=== PATIENT | female | born 1935 | race Caucasian/White ===

== ENCOUNTER → 2016-12-05 | Outpatient (REF) | payer MEDICARE, MEDICAID ==
[~2016-12-05] MED LIST: AMLO10TA2 PO; ASPI1TAB PO; ATEN100T PO; BENA20TA2 PO; DEXA4TA PO; DONETAB6 PO; FAMO1TAB11 PO; HYDR25TAB PO; LIOT25TA2 PO; LOVE0.4I2 SC; MEMA1TAB2 PO; METO-346 PO; METO12TA PO; MIDO10TA PO; MIDO5TA PO; NEXI40CA PO; OMEP20CA3 PO; POTA10CA PO; PROC10TA PO; TORS20TA2 PO; VITA-112 PO; VITA10002 PO; VITA500T53 PO; VYTO10TA2 PO; [UNRECOGNIZED DRUG - OTHER] INJ
[2016-12-06 14:03] LABS: PERCENT SATURATION 35.9 % (13.2-37.4)
== END ==
LOC: M LAB REF 13:22
PROVIDERS: ATTEND Internal Medicine Nephrology
DX: D64.9 Anemia, unspecified (principal)

== ENCOUNTER 2016-12-08 01:39 | Emergency (ER) | payer MEDICARE, MEDICAID ==
[2016-12-08] MEDS ORDERED: PERCOCET 5MG/325MG TAB As Ordered ONE (02:05)
[2016-12-08] MEDS ORDERED: LIDOCAINE W/EPINEPHRINE 1% 20ML VIAL As Ordered ONE (02:40)
--- NOTE | 2016-12-08 03:52 | EDDOCDS ---
Physician Documentation [facility] Name: Ruthann Vergara Age: 81 yrs Sex: Female : 1935 Arrival Date: 12/08/2016 Time: 01:39 Bed 9 Private MD: Zak Norton Disposition: 12/08/16 03:13 Discharged to Home/Self Care. Impression: Nontraumatic hematoma of soft tissue. - Condition is Stable. - Medication Reconciliation, Local Pharmacy Hours form. - Follow up: Zak Norton; When: 1 - 2 days; Reason: Recheck today's complaints, Continuance of care. - Problem is new. - Symptoms have improved. Historical: - Allergies: No known drug Allergies; - Home Meds: 1. Vytorin 10-40 10-40 mg oral tab 1 tab once daily 2. memantine 10 mg oral tab 1 tab 2 times per day 3. donepezil 10 mg oral tab 1 tab twice a day 4. Vitamin D Oral 1000 unit daily 5. aspirin 81 mg Oral tab 1 tab once daily 6. potassium chloride 10 mEq Oral TbER 1 tab 2 times per day 7. Vitamin B-12 500 mcg Oral tab 8. midodrine 5 mg oral tab 3 times per day 9. Decadron saturday Oral 5 tab 10. Prochlorperazine Maleate Oral as needed 11. omeprazole 20 mg Oral cpDR 1 cap 2 times per day 12. famotidine 20 mg Oral tab at noon 13. beleade injections every saturday 14. Lovenox Sub-Q - PMHx: dementia/alzheimer; Hypertension; hypotension; kidney failure; Multiple Myeloma; - Social history: Smoking status: Patient states was never smoker of tobacco. Patient/guardian denies using alcohol, street drugs, No barriers to communication noted, The patient speaks fluent Eritrean. - Family history: Not pertinent. - : The pt / caregiver states he / she is on anticoagulants: Lovenox. Home medication list is obtained from family members. - Exposure Risk Screening:: None identified. - Advance directive:: Yes. Vital Signs: 12/08 01:48 BP 118 / 75 (auto/); jp6 01:50 Pulse 104 MON; Pulse Ox 97% ; jp6 01:53 BP 118 / 75; Pulse 109; Resp 20; Temp 97.5(TE); Pulse Ox 96% on R/A; Weight 66.68 kg / jmv 147 lbs (R); Height 5 ft. 4 in. (162.56 cm) (R); Pain 10/10; 02:03 BP 120 / 84 (auto/); jp6 02:04 Pulse 98 MON; Pulse Ox 98% ; jp6 02:18 BP 116 / 81 (auto/); jp6 02:19 Pulse 104 MON; Pulse Ox 98% ; jp6 02:33 BP 114 / 80 (auto/); jp6 02:34 Pulse 100 MON; Pulse Ox 100% ; jp6 02:48 BP 114 / 78 (auto/); jp6 02:49 Pulse 98 MON; Pulse Ox 96% ; jp6 03:03 BP 116 / 78 (auto/); jp6 03:04 Pulse 98 MON; Pulse Ox 99% ; jp6 03:18 BP 106 / 70 (auto/); jp6 03:19 Pulse 88 MON; Pulse Ox 97% ; jp6 03:19 Resp 16; Temp 98(O); Pain 3/10; jp6 01:53 Body Mass Index 25.23 (66.68 kg, 162.56 cm) [facility] Procedures: 03:08 I & D: Incision and drainage was performed for an abscess of the right leg Prepped with cs11 Betadine, Anesthetized with ml's 1% Lidocaine with epinephrine. Incised with #11 blade. Drained moderate amount bloody fluid. the patient tolerated the procedure well, Small incision made in order to relieve the discomfort due to the expanding hematoma. Approx 250 cc blood drained till ceased to drain. Deflated hematoma cavity then wrapped with Tenoplast in order to inhibit refilling.. MDM: 02:05 oxyCODONE-acetaminophen 5 mg-325 mg 1 tabs PO once ordered. cs11 02:05 Tibia/Fibula Ordered. EDMS 03:03 Financial registration complete. pm4 Administered Medications: 02:20 Drug: oxyCODONE-acetaminophen 1 tabs [oxycodone-acetaminophen 5 mg-325 mg tablet (1 jp6 tabs)] Route: PO; Signatures: Dispatcher [employer] EDNnamdi Shaw DO DO cs11 Richelle Christine,RN RN jp6 Connor Hinton, Reg Reg pm4 MTDD
--- NOTE | 2016-12-08 03:52 | EDDOCDS ---
Nurse's Notes [facility] Name: Ruthann Vergara Age: 81 yrs Sex: Female : 1935 Arrival Date: 12/08/2016 Time: 01:39 Bed 9 Private MD: Zak Norton Diagnosis: Nontraumatic hematoma of soft tissue Presentation: 12/08 01:56 Presenting complaint: states: pt ret' from bathroom and crying out in pain w/ jp6 right leg-states had a small ecchymosis right outer leg and suddenly developed swelling at site and increased pain EMS states: right lower leg pain. Adult Sepsis Screening: The patient does not have new or worsening altered mentation. Patient's respiratory rate is less than 22. Systolic blood pressure is greater than 100. Patient has a qSOFA score of 0- Negative Sepsis Screen. Suicide/Homicide risk assessment- the patient denies having any suicidal and/or homicidal ideations and does not present with any other emotional, behavioral or mental health complaints. Status: Patient is not a neuropsychology service director or dependent. Transition of care: patient was not received from another setting of care. 01:56 Acuity: KELSIE Level 3 jp6 01:56 Method Of Arrival: Ambulance jp6 Triage Assessment: 02:13 General: Appears distressed, uncomfortable, Behavior is anxious, cooperative, restless. jp6 Pain: Location: right leg Pain currently is 10 out of 10 on a pain scale. Quality of pain is described as stabbing, Pain began 2 hours ago. The patient is triaged at the bedside. See Assessment in Nurses Notes section of ED record. Neurological: Level of Consciousness is awake, confused, Oriented to person. EENT: No deficits noted. Cardiovascular: No deficits noted. Respiratory: No deficits noted. Airway is patent Respiratory effort is even, unlabored, Respiratory pattern is regular, symmetrical, Breath sounds are clear bilaterally. GI: No deficits noted. : No deficits noted. Derm: Skin is fragile, is thin, has skin tears on skin tears left arm Skin is pale, Skin temperature is warm Bruising that is bright red, dark purple, on left foot, left arm, right leg and neck Swollen area noted on right leg, right foot, left leg and left foot. Musculoskeletal: Reports pain in right leg. Historical: - Allergies: No known drug Allergies; - Home Meds: 1. Vytorin 10-40 10-40 mg oral tab 1 tab once daily 2. memantine 10 mg oral tab 1 tab 2 times per day 3. donepezil 10 mg oral tab 1 tab twice a day 4. Vitamin D Oral 1000 unit daily 5. aspirin 81 mg Oral tab 1 tab once daily 6. potassium chloride 10 mEq Oral TbER 1 tab 2 times per day 7. Vitamin B-12 500 mcg Oral tab 8. midodrine 5 mg oral tab 3 times per day 9. Decadron saturday Oral 5 tab 10. Prochlorperazine Maleate Oral as needed 11. omeprazole 20 mg Oral cpDR 1 cap 2 times per day 12. famotidine 20 mg Oral tab at noon 13. beleade injections every saturday 14. Lovenox Sub-Q - PMHx: dementia/alzheimer; Hypertension; hypotension; kidney failure; Multiple Myeloma; - Social history: Smoking status: Patient states was never smoker of tobacco. Patient/guardian denies using alcohol, street drugs, No barriers to communication noted, The patient speaks fluent Thai. - Family history: Not pertinent. - : The pt / caregiver states he / she is on anticoagulants: Lovenox. Home medication list is obtained from family members. - Exposure Risk Screening:: None identified. - Advance directive:: Yes. Screenin:18 Screening information is obtained from family members. Fall risk: At risk due to age, jp6 immobility. Assistance ADL's: Requires assistance with meal preparation, this assistance is provided by bathing, assistance is provided by dressing, assistance is provided by. Abuse/DV Screen: The patient / caregiver reports he/she is: not in a situation that causes fear, pain or injury. Nutritional screening: No deficits noted. Advance Directives: Currently, there is a health care proxy, Floresita Vergara daughter. There is an active DNR order but there is no copy available at this time. There is. home support is adequate. Assessment: 02:18 General: see triage assessment. jp6 03:42 Reassessment: Patient states feeling better. Patient states symptoms have improved. jp6 General: Appears comfortable, Behavior is drowsy. Pain: Location: right leg Pain currently is 3 out of 10 on a pain scale. Neurological: No deficits noted. EENT: No deficits noted. Cardiovascular: No deficits noted. Respiratory: No deficits noted. GI: No deficits noted. : No deficits noted. Derm: Reports decreased pain since MD incised and drained hematoma on right outer leg. Vital Signs: 01:48 BP 118 / 75 (auto/); jp6 01:50 Pulse 104 MON; Pulse Ox 97% ; jp6 01:53 BP 118 / 75; Pulse 109; Resp 20; Temp 97.5(TE); Pulse Ox 96% on R/A; Weight 66.68 kg [facility] (R); Height 5 ft. 4 in. (162.56 cm) (R); Pain 10/10; 02:03 BP 120 / 84 (auto/); jp6 02:04 Pulse 98 MON; Pulse Ox 98% ; jp6 02:18 BP 116 / 81 (auto/); jp6 02:19 Pulse 104 MON; Pulse Ox 98% ; jp6 02:33 BP 114 / 80 (auto/); jp6 02:34 Pulse 100 MON; Pulse Ox 100% ; jp6 02:48 BP 114 / 78 (auto/); jp6 02:49 Pulse 98 MON; Pulse Ox 96% ; jp6 03:03 BP 116 / 78 (auto/); jp6 03:04 Pulse 98 MON; Pulse Ox 99% ; jp6 03:18 BP 106 / 70 (auto/); jp6 03:19 Pulse 88 MON; Pulse Ox 97% ; jp6 03:19 Resp 16; Temp 98(O); Pain 3/10; jp6 01:53 Body Mass Index 25.23 (66.68 kg, 162.56 cm) [facility] Vitals: 02:13 Log In Time N/A - ambulance arrival. jp6 ED Course: 01:40 Patient visited by Bridget Santamaria PCA. tmm1 01:40 Zak Norton is Private Physician. tmm1 01:40 Patient moved to Waiting tmm1 01:40 Patient moved to 9 tmm1 01:54 Patient visited by Alli Miranda PCA. [facility] 01:54 Pt greeted and oriented to ED. Patient advised of names of staff involved in care, [facility] location of call trejo, wait times and NPO status. Accompanied by Family Member, Patient has correct armband on for positive identification. Bed in low position. Call light in reach. Side rails up X2. Pulse ox on. NIBP on. 01:56 Christine,Richelle,RN is Primary Nurse. jp6 01:58 Triage Initiated jp6 02:00 Nnamdi Ybarra DO is Attending Physician. cs11 02:00 Patient visited by Nnamdi Ybarra DO. cs11 02:18 The patient / caregiver is instructed regarding the plan of care and ED course. jp6 03:11 Zak Norton is Referral Physician. cs11 03:15 Assist provider with I & D: of an abscess on outer lower leg Performed by Nnamdi Ybarra jp6 DO Dressing with 4x4 then tensoplast then kerlex Patient tolerated well. 03:19 No IV's were initiated during this patient's visit. jp6 Administered Medications: 02:20 Drug: oxyCODONE-acetaminophen 1 tabs [oxycodone-acetaminophen 5 mg-325 mg tablet (1 jp6 tabs)] Route: PO; Order Results: There are currently no results for this order. Outcome: 03:13 Discharge ordered by Provider. cs11 03:15 Discharge Assessment: Patient awake, alert and oriented x 3. No cognitive and/or jp6 functional deficits noted. Patient verbalized understanding of disposition instructions. patient administered narcotics - yes. Pt provided with safe discharge. The following High Risk Discharge criteria are identified: None. Discharged to home via wheelchair, with family. Condition: improved. Discharge instructions given to family, Instructed on discharge instructions, Demonstrated understanding of instructions, Pt was receptive of discharge instructions/ teaching. No special radiology studies were completed. Property sent home with patient. 03:51 Patient left the ED. jp6 Signatures: Nnamdi Ybarra DO DO cs11 Bridget Santamaria, CHIEF KNOWLEDGE OFFICER CHIEF KNOWLEDGE OFFICER tmm1 Richelle Christine,RN RN jp6 Alli Miranda, CHIEF KNOWLEDGE OFFICER CHIEF KNOWLEDGE OFFICER jmv MTDD
--- NOTE | 2016-12-08 08:05 | REP ---
Clinical: Trauma. Technique: AP and lateral views of the right tibia / fibula. Findings: Age-related changes at the knee and ankle joint noted. Soft tissue injury over the anterolateral aspect of the mid calf suggest hematoma. No acute fracture or dislocation identified. Impression: No acute fracture dislocation. Soft tissue contusion/hematoma. Signed by Wenceslao Leroy MD 12/08/2016 07:57 A
--- NOTE | 2016-12-10 04:52 | EDDOCDS ---
Physician Documentation [facility] Name: Ruthann Vergara Age: 81 yrs Sex: Female : 1935 Arrival Date: 12/08/2016 Time: 01:39 Bed 9 Private MD: Zak Norton Disposition: 12/08/16 03:13 Discharged to Home/Self Care. Impression: Nontraumatic hematoma of soft tissue. - Condition is Stable. - Medication Reconciliation, Local Pharmacy Hours form. - Follow up: Zak Norton; When: 1 - 2 days; Reason: Recheck today's complaints, Continuance of care. - Problem is new. - Symptoms have improved. Historical: - Allergies: No known drug Allergies; - Home Meds: 1. Vytorin 10-40 10-40 mg oral tab 1 tab once daily 2. memantine 10 mg oral tab 1 tab 2 times per day 3. donepezil 10 mg oral tab 1 tab twice a day 4. Vitamin D Oral 1000 unit daily 5. aspirin 81 mg Oral tab 1 tab once daily 6. potassium chloride 10 mEq Oral TbER 1 tab 2 times per day 7. Vitamin B-12 500 mcg Oral tab 8. midodrine 5 mg oral tab 3 times per day 9. Decadron saturday Oral 5 tab 10. Prochlorperazine Maleate Oral as needed 11. omeprazole 20 mg Oral cpDR 1 cap 2 times per day 12. famotidine 20 mg Oral tab at noon 13. beleade injections every saturday 14. Lovenox Sub-Q - PMHx: dementia/alzheimer; Hypertension; hypotension; kidney failure; Multiple Myeloma; - Social history: Smoking status: Patient states was never smoker of tobacco. Patient/guardian denies using alcohol, street drugs, No barriers to communication noted, The patient speaks fluent Botswanan. - Family history: Not pertinent. - : The pt / caregiver states he / she is on anticoagulants: Lovenox. Home medication list is obtained from family members. - Exposure Risk Screening:: None identified. - Advance directive:: Yes. Vital Signs: 12/08 01:48 BP 118 / 75 (auto/); jp6 01:50 Pulse 104 MON; Pulse Ox 97% ; jp6 01:53 BP 118 / 75; Pulse 109; Resp 20; Temp 97.5(TE); Pulse Ox 96% on R/A; Weight 66.68 kg / jmv 147 lbs (R); Height 5 ft. 4 in. (162.56 cm) (R); Pain 10/10; 02:03 BP 120 / 84 (auto/); jp6 02:04 Pulse 98 MON; Pulse Ox 98% ; jp6 02:18 BP 116 / 81 (auto/); jp6 02:19 Pulse 104 MON; Pulse Ox 98% ; jp6 02:33 BP 114 / 80 (auto/); jp6 02:34 Pulse 100 MON; Pulse Ox 100% ; jp6 02:48 BP 114 / 78 (auto/); jp6 02:49 Pulse 98 MON; Pulse Ox 96% ; jp6 03:03 BP 116 / 78 (auto/); jp6 03:04 Pulse 98 MON; Pulse Ox 99% ; jp6 03:18 BP 106 / 70 (auto/); jp6 03:19 Pulse 88 MON; Pulse Ox 97% ; jp6 03:19 Resp 16; Temp 98(O); Pain 3/10; jp6 01:53 Body Mass Index 25.23 (66.68 kg, 162.56 cm) [facility] Procedures: 03:08 I & D: Incision and drainage was performed for an abscess of the right leg Prepped with cs11 Betadine, Anesthetized with ml's 1% Lidocaine with epinephrine. Incised with #11 blade. Drained moderate amount bloody fluid. the patient tolerated the procedure well, Small incision made in order to relieve the discomfort due to the expanding hematoma. Approx 250 cc blood drained till ceased to drain. Deflated hematoma cavity then wrapped with Tenoplast in order to inhibit refilling.. MDM: 02:05 oxyCODONE-acetaminophen 5 mg-325 mg 1 tabs PO once ordered. cs11 02:05 Tibia/Fibula Ordered. EDMS 03:03 Financial registration complete. pm4 03:57 [facility] Payment Agreement was scanned into [email or web address] and attached to record. pm4 07:47 T-Sheet-- Draft Copy was scanned into [email or web address] and attached to record. [facility] Administered Medications: 02:20 Drug: oxyCODONE-acetaminophen 1 tabs [oxycodone-acetaminophen 5 mg-325 mg tablet (1 jp6 tabs)] Route: PO; Signatures: Dispatcher [employer] Nnamdi Gallardo, DO cs11 Richelle Christine,RN RN jp6 Vanesa Purdy Paul, Reg Reg pm4 The chart was reviewed and I authenticate all verbal orders and agree with the evaluation and treatment provided.Attachments: 03:57 [facility] Payment Agreement pm4 07:47 T-Sheet-- Draft Copy [facility] Chart Complete MTDD
--- NOTE | 2016-12-10 04:52 | EDDOCDS ---
Physician Documentation [facility] Name: Ruthann Vergara Age: 81 yrs Sex: Female : 1935 Arrival Date: 12/08/2016 Time: 01:39 Bed 9 Private MD: Zak Norton Disposition: 12/08/16 03:13 Discharged to Home/Self Care. Impression: Nontraumatic hematoma of soft tissue. - Condition is Stable. - Medication Reconciliation, Local Pharmacy Hours form. - Follow up: Zak Norton; When: 1 - 2 days; Reason: Recheck today's complaints, Continuance of care. - Problem is new. - Symptoms have improved. Historical: - Allergies: No known drug Allergies; - Home Meds: 1. Vytorin 10-40 10-40 mg oral tab 1 tab once daily 2. memantine 10 mg oral tab 1 tab 2 times per day 3. donepezil 10 mg oral tab 1 tab twice a day 4. Vitamin D Oral 1000 unit daily 5. aspirin 81 mg Oral tab 1 tab once daily 6. potassium chloride 10 mEq Oral TbER 1 tab 2 times per day 7. Vitamin B-12 500 mcg Oral tab 8. midodrine 5 mg oral tab 3 times per day 9. Decadron saturday Oral 5 tab 10. Prochlorperazine Maleate Oral as needed 11. omeprazole 20 mg Oral cpDR 1 cap 2 times per day 12. famotidine 20 mg Oral tab at noon 13. beleade injections every saturday 14. Lovenox Sub-Q - PMHx: dementia/alzheimer; Hypertension; hypotension; kidney failure; Multiple Myeloma; - Social history: Smoking status: Patient states was never smoker of tobacco. Patient/guardian denies using alcohol, street drugs, No barriers to communication noted, The patient speaks fluent Cape Verdean. - Family history: Not pertinent. - : The pt / caregiver states he / she is on anticoagulants: Lovenox. Home medication list is obtained from family members. - Exposure Risk Screening:: None identified. - Advance directive:: Yes. Vital Signs: 12/08 01:48 BP 118 / 75 (auto/); jp6 01:50 Pulse 104 MON; Pulse Ox 97% ; jp6 01:53 BP 118 / 75; Pulse 109; Resp 20; Temp 97.5(TE); Pulse Ox 96% on R/A; Weight 66.68 kg / jmv 147 lbs (R); Height 5 ft. 4 in. (162.56 cm) (R); Pain 10/10; 02:03 BP 120 / 84 (auto/); jp6 02:04 Pulse 98 MON; Pulse Ox 98% ; jp6 02:18 BP 116 / 81 (auto/); jp6 02:19 Pulse 104 MON; Pulse Ox 98% ; jp6 02:33 BP 114 / 80 (auto/); jp6 02:34 Pulse 100 MON; Pulse Ox 100% ; jp6 02:48 BP 114 / 78 (auto/); jp6 02:49 Pulse 98 MON; Pulse Ox 96% ; jp6 03:03 BP 116 / 78 (auto/); jp6 03:04 Pulse 98 MON; Pulse Ox 99% ; jp6 03:18 BP 106 / 70 (auto/); jp6 03:19 Pulse 88 MON; Pulse Ox 97% ; jp6 03:19 Resp 16; Temp 98(O); Pain 3/10; jp6 01:53 Body Mass Index 25.23 (66.68 kg, 162.56 cm) [facility] Procedures: 03:08 I & D: Incision and drainage was performed for an abscess of the right leg Prepped with cs11 Betadine, Anesthetized with ml's 1% Lidocaine with epinephrine. Incised with #11 blade. Drained moderate amount bloody fluid. the patient tolerated the procedure well, Small incision made in order to relieve the discomfort due to the expanding hematoma. Approx 250 cc blood drained till ceased to drain. Deflated hematoma cavity then wrapped with Tenoplast in order to inhibit refilling.. MDM: 02:05 oxyCODONE-acetaminophen 5 mg-325 mg 1 tabs PO once ordered. cs11 02:05 Tibia/Fibula Ordered. EDMS 03:03 Financial registration complete. pm4 03:57 [facility] [place] Payment Agreement was scanned into [employer] and attached to record. pm4 07:47 T-Sheet-- Draft Copy was scanned into [employer] and attached to record. [facility] Administered Medications: 02:20 Drug: oxyCODONE-acetaminophen 1 tabs [oxycodone-acetaminophen 5 mg-325 mg tablet (1 jp6 tabs)] Route: PO; Signatures: Dispatcher [employer]roll[employer]ost Nnamdi Gallardo, DO cs11 Richelle Christine,RN RN jp6 Vanesa Purdy Paul, Reg Reg pm4 The chart was reviewed and I authenticate all verbal orders and agree with the evaluation and treatment provided.Attachments: 03:57 [facility] Payment Agreement pm4 07:47 T-Sheet-- Draft Copy [facility] Chart Complete MTDD
--- NOTE | 2016-12-10 04:52 | EDDOCDS ---
Nurse's Notes [facility] Name: Ruthann Vergara Age: 81 yrs Sex: Female : 1935 Arrival Date: 12/08/2016 Time: 01:39 Bed 9 Private MD: Zak Norton Diagnosis: Nontraumatic hematoma of soft tissue Presentation: 12/08 01:56 Presenting complaint: states: pt ret' from bathroom and crying out in pain w/ jp6 right leg-states had a small ecchymosis right outer leg and suddenly developed swelling at site and increased pain EMS states: right lower leg pain. Adult Sepsis Screening: The patient does not have new or worsening altered mentation. Patient's respiratory rate is less than 22. Systolic blood pressure is greater than 100. Patient has a qSOFA score of 0- Negative Sepsis Screen. Suicide/Homicide risk assessment- the patient denies having any suicidal and/or homicidal ideations and does not present with any other emotional, behavioral or mental health complaints. Status: Patient is not a counseling services manager or dependent. Transition of care: patient was not received from another setting of care. 01:56 Acuity: KELSIE Level 3 jp6 01:56 Method Of Arrival: Ambulance jp6 Triage Assessment: 02:13 General: Appears distressed, uncomfortable, Behavior is anxious, cooperative, restless. jp6 Pain: Location: right leg Pain currently is 10 out of 10 on a pain scale. Quality of pain is described as stabbing, Pain began 2 hours ago. The patient is triaged at the bedside. See Assessment in Nurses Notes section of ED record. Neurological: Level of Consciousness is awake, confused, Oriented to person. EENT: No deficits noted. Cardiovascular: No deficits noted. Respiratory: No deficits noted. Airway is patent Respiratory effort is even, unlabored, Respiratory pattern is regular, symmetrical, Breath sounds are clear bilaterally. GI: No deficits noted. : No deficits noted. Derm: Skin is fragile, is thin, has skin tears on skin tears left arm Skin is pale, Skin temperature is warm Bruising that is bright red, dark purple, on left foot, left arm, right leg and neck Swollen area noted on right leg, right foot, left leg and left foot. Musculoskeletal: Reports pain in right leg. Historical: - Allergies: No known drug Allergies; - Home Meds: 1. Vytorin 10-40 10-40 mg oral tab 1 tab once daily 2. memantine 10 mg oral tab 1 tab 2 times per day 3. donepezil 10 mg oral tab 1 tab twice a day 4. Vitamin D Oral 1000 unit daily 5. aspirin 81 mg Oral tab 1 tab once daily 6. potassium chloride 10 mEq Oral TbER 1 tab 2 times per day 7. Vitamin B-12 500 mcg Oral tab 8. midodrine 5 mg oral tab 3 times per day 9. Decadron saturday Oral 5 tab 10. Prochlorperazine Maleate Oral as needed 11. omeprazole 20 mg Oral cpDR 1 cap 2 times per day 12. famotidine 20 mg Oral tab at noon 13. beleade injections every saturday 14. Lovenox Sub-Q - PMHx: dementia/alzheimer; Hypertension; hypotension; kidney failure; Multiple Myeloma; - Social history: Smoking status: Patient states was never smoker of tobacco. Patient/guardian denies using alcohol, street drugs, No barriers to communication noted, The patient speaks fluent Lao. - Family history: Not pertinent. - : The pt / caregiver states he / she is on anticoagulants: Lovenox. Home medication list is obtained from family members. - Exposure Risk Screening:: None identified. - Advance directive:: Yes. Screenin:18 Screening information is obtained from family members. Fall risk: At risk due to age, jp6 immobility. Assistance ADL's: Requires assistance with meal preparation, this assistance is provided by bathing, assistance is provided by dressing, assistance is provided by. Abuse/DV Screen: The patient / caregiver reports he/she is: not in a situation that causes fear, pain or injury. Nutritional screening: No deficits noted. Advance Directives: Currently, there is a health care proxy, Floresita Vergara daughter. There is an active DNR order but there is no copy available at this time. There is. home support is adequate. Assessment: 02:18 General: see triage assessment. jp6 03:42 Reassessment: Patient states feeling better. Patient states symptoms have improved. jp6 General: Appears comfortable, Behavior is drowsy. Pain: Location: right leg Pain currently is 3 out of 10 on a pain scale. Neurological: No deficits noted. EENT: No deficits noted. Cardiovascular: No deficits noted. Respiratory: No deficits noted. GI: No deficits noted. : No deficits noted. Derm: Reports decreased pain since MD incised and drained hematoma on right outer leg. Vital Signs: 01:48 BP 118 / 75 (auto/); jp6 01:50 Pulse 104 MON; Pulse Ox 97% ; jp6 01:53 BP 118 / 75; Pulse 109; Resp 20; Temp 97.5(TE); Pulse Ox 96% on R/A; Weight 66.68 kg [facility] (R); Height 5 ft. 4 in. (162.56 cm) (R); Pain 10/10; 02:03 BP 120 / 84 (auto/); jp6 02:04 Pulse 98 MON; Pulse Ox 98% ; jp6 02:18 BP 116 / 81 (auto/); jp6 02:19 Pulse 104 MON; Pulse Ox 98% ; jp6 02:33 BP 114 / 80 (auto/); jp6 02:34 Pulse 100 MON; Pulse Ox 100% ; jp6 02:48 BP 114 / 78 (auto/); jp6 02:49 Pulse 98 MON; Pulse Ox 96% ; jp6 03:03 BP 116 / 78 (auto/); jp6 03:04 Pulse 98 MON; Pulse Ox 99% ; jp6 03:18 BP 106 / 70 (auto/); jp6 03:19 Pulse 88 MON; Pulse Ox 97% ; jp6 03:19 Resp 16; Temp 98(O); Pain 3/10; jp6 01:53 Body Mass Index 25.23 (66.68 kg, 162.56 cm) [facility] Vitals: 02:13 Log In Time N/A - ambulance arrival. jp6 ED Course: 01:40 Patient visited by Bridget Santamaria PCA. tmm1 01:40 Zak Norton is Private Physician. tmm1 01:40 Patient moved to Waiting tmm1 01:40 Patient moved to 9 tmm1 01:54 Patient visited by Alli Miranda PCA. [facility] 01:54 Pt greeted and oriented to ED. Patient advised of names of staff involved in care, [facility] location of call trejo, wait times and NPO status. Accompanied by Family Member, Patient has correct armband on for positive identification. Bed in low position. Call light in reach. Side rails up X2. Pulse ox on. NIBP on. 01:56 Christine,Richelle,RN is Primary Nurse. jp6 01:58 Triage Initiated jp6 02:00 Nnamdi Ybarra DO is Attending Physician. cs11 02:00 Patient visited by Nnamdi Ybarra DO. cs11 02:18 The patient / caregiver is instructed regarding the plan of care and ED course. jp6 03:11 Zak Norton is Referral Physician. cs11 03:15 Assist provider with I & D: of an abscess on outer lower leg Performed by Nnamdi Ybarra jp6 Dressing with 4x4 then tensoplast then kerlex Patient tolerated well. 03:19 No IV's were initiated during this patient's visit. jp6 03:57 [facility] Payment Agreement was scanned into [employer] and attached to record. pm4 07:47 T-Sheet-- Draft Copy was scanned into [employer] and attached to record. seh 08:05 Tibia/Fibula Returned. EDMS Administered Medications: 02:20 Drug: oxyCODONE-acetaminophen 1 tabs [oxycodone-acetaminophen 5 mg-325 mg tablet (1 jp6 tabs)] Route: PO; Order Results: Radiology Order: Tibia/Fibula Test: Tibia/Fibula REASON FOR EXAMINATION: Trauma; Clinical: Trauma.; ; Technique: AP and lateral views of the right tibia / fibula.; ; Findings:; Age-related changes at the knee and ankle joint noted. Soft tissue injury over; the anterolateral aspect of the mid calf suggest hematoma. No acute fracture or; dislocation identified.; ; Impression:; No acute fracture dislocation.; Soft tissue contusion/hematoma.; ; ; Signed by; Wenceslao Leroy MD 12/08/2016 07:57 A; Outcome: 03:13 Discharge ordered by Provider. cs11 03:15 Discharge Assessment: Patient awake, alert and oriented x 3. No cognitive and/or jp6 functional deficits noted. Patient verbalized understanding of disposition instructions. patient administered narcotics - yes. Pt provided with safe discharge. The following High Risk Discharge criteria are identified: None. Discharged to home via wheelchair, with family. Condition: improved. Discharge instructions given to family, Instructed on discharge instructions, Demonstrated understanding of instructions, Pt was receptive of discharge instructions/ teaching. No special radiology studies were completed. Property sent home with patient. 03:51 Patient left the ED. jp6 Signatures: Dispatcher [employer] EDMS Nnamdi Ybarra, DO DO cs11 McLear, Bridget, GENERATOR TECHNICIAN GENERATOR TECHNICIAN tmm1 Richelle Christine,RN RN jp6 Vanesa Purdy, Alli, GENERATOR TECHNICIAN GENERATOR TECHNICIAN jmv Connor Hinton, Reg Reg pm4 Chart Complete MTDD
== END 2016-12-08 03:51 | disposition home or self-care (01) ==
LOC: M ED 01:39
DX: M79.81 Nontraumatic hematoma of soft tissue (principal); L02.415 Cutaneous abscess of right lower limb; G30.9 Alzheimer's disease, unspecified; I10 Essential (primary) hypertension; N19 Unspecified kidney failure; C90.00 Multiple myeloma not having achieved remission; Z79.01 Long term (current) use of anticoagulants; Z79.82 Long term (current) use of aspirin; Z79.899 Other long term (current) drug therapy

== ENCOUNTER 2016-12-08 09:12 | Emergency (ER) | payer MEDICARE, MEDICAID ==
--- NOTE | 2016-12-08 10:03 | EDDOCDS ---
Physician Documentation [facility] Name: Ruthann Vergara Age: 81 yrs Sex: Female : 1935 Arrival Date: 12/08/2016 Time: 09:12 Bed Triage 2 Private MD: Zak Norton MD Disposition: 12/08/16 09:55 Discharged to Home/Self Care. Impression: Pain in right lower leg - Post I&D of Hematoma, Encounter for change or removal of surgical wound dressing - Wound Recheck. - Condition is Stable. - Discharge Instructions: Dressing Change, Incision Care, [id number]. - Prescriptions for Percocet 5- 325 mg Oral Tablet - take 1 tablet by ORAL route every 6 hours As needed MDD: 4 tabs; 10 tablet. - Medication Reconciliation, Local Pharmacy Hours form. - Follow up: Zak Norton; When: 1 - 2 days; Reason: Recheck today's complaints, Continuance of care. Follow up: Emergency Department; Reason: Worsening of conditions. - Problem is new. - Symptoms have improved. Historical: - Allergies: no known allergies; - Home Meds: 1. aspirin 81 mg Oral tab 1 tab once daily 2. beleade injections every saturday 3. Decadron saturday Oral 5 tab 4. donepezil 10 mg oral tab 1 tab twice a day 5. famotidine 20 mg Oral tab at noon 6. Lovenox Sub-Q 7. memantine 10 mg oral tab 1 tab 2 times per day 8. midodrine 5 mg oral tab 3 times per day 9. omeprazole 20 mg Oral cpDR 1 cap 2 times per day 10. potassium chloride 10 mEq Oral TbER 1 tab 2 times per day 11. Prochlorperazine Maleate Oral as needed 12. Vitamin B-12 500 mcg Oral tab 13. Vitamin D Oral 1000 unit daily 14. Vytorin 10-40 10-40 mg oral tab 1 tab once daily - PMHx: dementia/alzheimer; Hypertension; hypotension; kidney failure; Multiple Myeloma; - PSHx: none; - Social history: Smoking status: Patient states was never smoker of tobacco. No barriers to communication noted, The patient speaks fluent Uzbek, Speaks appropriately for age. - Family history: Not pertinent. - : The pt / caregiver states he / she is on anticoagulants: Lovenox. Home medication list is obtained from the patient. - Exposure Risk Screening:: None identified. Vital Signs: 12/08 09:15 BP 104 / 71; Pulse 103; Resp 20; Pulse Ox 99% on R/A; Weight 66 kg / 145.51 lbs (R); elp Height 5 ft. 4 in. (162.56 cm) (R); 09:41 Temp 97(TE); ls3 09:15 Body Mass Index 24.98 (66.00 kg, 162.56 cm) elp MDM: 09:39 Vital Signs ordered. ef1 09:58 Financial registration complete. mm15 Signatures: Víctor Castro RN RN Behzad Gutierrez RN RN mlb1 Marimar Nugent, PASudhaC PAAnn ef1 Rene Rivera mm15 MTDDion
--- NOTE | 2016-12-08 10:03 | EDDOCDS ---
Nurse's Notes [facility] Name: Ruthann Vergara Age: 81 yrs Sex: Female : 1935 Arrival Date: 12/08/2016 Time: 09:12 Bed Triage 2 Private MD: Zak Norton MD Diagnosis: Pain in right lower leg-Post I&D of Hematoma;Encounter for change or removal of surgical wound dressing-Wound Recheck Presentation: 12/08 09:18 Presenting complaint: Patient states: was seen last night for hematoma righ leg - had bcj I&D done las night. states pain much worse today. sm amt of drainage on dressing per family. has not fallen since returning home. Adult Sepsis Screening: The patient does not have new or worsening altered mentation. Patient's respiratory rate is less than 22. Systolic blood pressure is greater than 100. Patient has a qSOFA score of 0- Negative Sepsis Screen. Suicide/Homicide risk assessment- the patient denies having any suicidal and/or homicidal ideations and does not present with any other emotional, behavioral or mental health complaints. Status: Patient is not a service captain or dependent. Transition of care: patient was not received from another setting of care. 09:18 Acuity: KELSIE Level 3 bcj 09:18 Method Of Arrival: Walkin/Carried/Asstd bcj Triage Assessment: 09:21 General: Appears in no apparent distress, comfortable, Behavior is cooperative. Pain: bcj Location: right leg Pain currently is 10 out of 10 on a pain scale. Historical: - Allergies: no known allergies; - Home Meds: 1. aspirin 81 mg Oral tab 1 tab once daily 2. beleade injections every saturday 3. Decadron saturday Oral 5 tab 4. donepezil 10 mg oral tab 1 tab twice a day 5. famotidine 20 mg Oral tab at noon 6. Lovenox Sub-Q 7. memantine 10 mg oral tab 1 tab 2 times per day 8. midodrine 5 mg oral tab 3 times per day 9. omeprazole 20 mg Oral cpDR 1 cap 2 times per day 10. potassium chloride 10 mEq Oral TbER 1 tab 2 times per day 11. Prochlorperazine Maleate Oral as needed 12. Vitamin B-12 500 mcg Oral tab 13. Vitamin D Oral 1000 unit daily 14. Vytorin 10-40 10-40 mg oral tab 1 tab once daily - PMHx: dementia/alzheimer; Hypertension; hypotension; kidney failure; Multiple Myeloma; - PSHx: none; - Social history: Smoking status: Patient states was never smoker of tobacco. No barriers to communication noted, The patient speaks fluent Greenlandic, Speaks appropriately for age. - Family history: Not pertinent. - : The pt / caregiver states he / she is on anticoagulants: Lovenox. Home medication list is obtained from the patient. - Exposure Risk Screening:: None identified. Screenin:01 Screening information is obtained from the patient. Fall risk: At risk due to age, The mlb1 following interventions are performed due to a positive Fall Risk Screen: Fall Risk is added to Special Handling on the patient Summary Screen. A Fall Risk Bracelet was applied to the patient. Side Rails are placed in the up position. A Call Alvarado is given with instruction to call for help when getting out of bed. Fall Alert bracelet is placed on the patient. Assistance ADL's: Requires assistance with meal preparation, this assistance is provided by family members, ambulation, assistance is provided by family members, medication administration, assistance is provided by family members. Abuse/DV Screen: The patient / caregiver reports he/she is: not in a situation that causes fear, pain or injury. Nutritional screening: No deficits noted. Advance Directives: Currently, there is no health care proxy. home support is adequate. Assessment: 10:00 General: Appears in no apparent distress, Behavior is appropriate for age, cooperative. mlb1 Pain: Location: medial aspect of right calf Pain currently is 9 out of 10 on a pain scale. Neurological: No deficits noted. Musculoskeletal: Circulation, motion, and sensation intact. Vital Signs: 09:15 BP 104 / 71; Pulse 103; Resp 20; Pulse Ox 99% on R/A; Weight 66 kg (R); Height 5 ft. 4 elp in. (162.56 cm) (R); 09:41 Temp 97(TE); ls3 09:15 Body Mass Index 24.98 (66.00 kg, 162.56 cm) [facility] Vitals: 09:15 Log In Time: December 08, 2016 at 09:13. [facility] ED Course: 09:13 Patient visited by Patchen, Vianca, ORDER PACKER OR PACKAGER. elp 09:13 Patient moved to Waiting elp 09:15 Zak Norton is Private Physician. elp 09:16 Patient moved to Pre RCE elp 09:20 Triage Initiated [facility] 09:21 Patient visited by Víctor Castro RN. bcj 09:22 Patient moved to Triage 2 bcj 09:26 [facility]ent [facility] ef1 09:26 Vanesa Pandey MD is Attending Physician. ef1 09:28 Patient visited by Marimar Nugent PA-C. ef1 09:55 Zak Norton is Referral Physician. ef1 10:01 No IV's were initiated during this patient's visit. No procedures done that require mlb1 assistance. 10:02 The patient / caregiver is instructed regarding the plan of care and ED course. mlb1 Order Results: There are currently no results for this order. Outcome: 09:55 Discharge ordered by Provider. ef1 10:01 Discharge Assessment: Patient awake, alert and oriented x 3. No cognitive and/or mlb1 functional deficits noted. Patient verbalized understanding of disposition instructions. patient administered narcotics - no. The following High Risk Discharge criteria are identified: None. Discharged to home ambulatory, with family. Condition: good. Discharge instructions given to patient, Instructed on discharge instructions, follow up and referral plans. medication usage, no driving heavy equipment, Demonstrated understanding of instructions, medications, Pt was receptive of discharge instructions/ teaching. Prescriptions given X 1. No special radiology studies were completed. Property sent home with patient. 10:02 Patient left the ED. mlb1 Signatures: Víctor Castro RN RN Behzad Gutierrez RN RN mlb1 Marimar Nugent PA-C PA-C ef1 Martin Negroin, ORDER PACKER OR PACKAGER ORDER PACKER OR PACKAGER elp Malgorzata Ybarra, ORDER PACKER OR PACKAGER ORDER PACKER OR PACKAGER ls3 MTDD
--- NOTE | 2016-12-10 11:03 | EDDOCDS ---
Physician Documentation [facility] Name: Ruthann Vergara Age: 81 yrs Sex: Female : 1935 Arrival Date: 12/08/2016 Time: 09:12 Bed Triage 2 Private MD: Zak Norton MD Disposition: 12/08/16 09:55 Discharged to Home/Self Care. Impression: Pain in right lower leg - Post I&D of Hematoma, Encounter for change or removal of surgical wound dressing - Wound Recheck. - Condition is Stable. - Discharge Instructions: Dressing Change, Incision Care, [id number]. - Prescriptions for Percocet 5- 325 mg Oral Tablet - take 1 tablet by ORAL route every 6 hours As needed MDD: 4 tabs; 10 tablet. - Medication Reconciliation, Local Pharmacy Hours form. - Follow up: Zak Norton; When: 1 - 2 days; Reason: Recheck today's complaints, Continuance of care. Follow up: Emergency Department; Reason: Worsening of conditions. - Problem is new. - Symptoms have improved. Historical: - Allergies: no known allergies; - Home Meds: 1. aspirin 81 mg Oral tab 1 tab once daily 2. beleade injections every saturday 3. Decadron saturday Oral 5 tab 4. donepezil 10 mg oral tab 1 tab twice a day 5. famotidine 20 mg Oral tab at noon 6. Lovenox Sub-Q 7. memantine 10 mg oral tab 1 tab 2 times per day 8. midodrine 5 mg oral tab 3 times per day 9. omeprazole 20 mg Oral cpDR 1 cap 2 times per day 10. potassium chloride 10 mEq Oral TbER 1 tab 2 times per day 11. Prochlorperazine Maleate Oral as needed 12. Vitamin B-12 500 mcg Oral tab 13. Vitamin D Oral 1000 unit daily 14. Vytorin 10-40 10-40 mg oral tab 1 tab once daily - PMHx: dementia/alzheimer; Hypertension; hypotension; kidney failure; Multiple Myeloma; - PSHx: none; - Social history: Smoking status: Patient states was never smoker of tobacco. No barriers to communication noted, The patient speaks fluent Czech, Speaks appropriately for age. - Family history: Not pertinent. - : The pt / caregiver states he / she is on anticoagulants: Lovenox. Home medication list is obtained from the patient. - Exposure Risk Screening:: None identified. Vital Signs: 12/08 09:15 BP 104 / 71; Pulse 103; Resp 20; Pulse Ox 99% on R/A; Weight 66 kg / 145.51 lbs (R); elp Height 5 ft. 4 in. (162.56 cm) (R); 09:41 Temp 97(TE); ls3 09:15 Body Mass Index 24.98 (66.00 kg, 162.56 cm) elp MDM: 09:39 Vital Signs ordered. ef1 09:58 Financial registration complete. mm15 10:11 [facility] Payment Agreement was scanned into [employer] and attached to record. mm15 10:40 T-Sheet-- Draft Copy was scanned into [employer] and attached to record. [facility] Signatures: Víctor Castro RN RN Behzad Gutierrez RN RN mlb1 Marimar Nugent, PA-C PA-C ef1 Rene Rivera mm15 Vanesa Purdy [facility] The chart was reviewed and I authenticate all verbal orders and agree with the evaluation and treatment provided.Attachments: 10:11 [facility] Payment Agreement mm15 10:40 T-Sheet-- Draft Copy [facility] Chart Complete MTDD
--- NOTE | 2016-12-10 11:03 | EDDOCDS ---
Nurse's Notes [facility] Name: Ruthann Vergara Age: 81 yrs Sex: Female : 1935 Arrival Date: 12/08/2016 Time: 09:12 Bed Triage 2 Private MD: Zak Norton MD Diagnosis: Pain in right lower leg-Post I&D of Hematoma;Encounter for change or removal of surgical wound dressing-Wound Recheck Presentation: 12/08 09:18 Presenting complaint: Patient states: was seen last night for hematoma righ leg - had bcj I&D done las night. states pain much worse today. sm amt of drainage on dressing per family. has not fallen since returning home. Adult Sepsis Screening: The patient does not have new or worsening altered mentation. Patient's respiratory rate is less than 22. Systolic blood pressure is greater than 100. Patient has a qSOFA score of 0- Negative Sepsis Screen. Suicide/Homicide risk assessment- the patient denies having any suicidal and/or homicidal ideations and does not present with any other emotional, behavioral or mental health complaints. Status: Patient is not a industrial garage servicer or dependent. Transition of care: patient was not received from another setting of care. 09:18 Acuity: KELSIE Level 3 bcj 09:18 Method Of Arrival: Walkin/Carried/Asstd bcj Triage Assessment: 09:21 General: Appears in no apparent distress, comfortable, Behavior is cooperative. Pain: bcj Location: right leg Pain currently is 10 out of 10 on a pain scale. Historical: - Allergies: no known allergies; - Home Meds: 1. aspirin 81 mg Oral tab 1 tab once daily 2. beleade injections every saturday 3. Decadron saturday Oral 5 tab 4. donepezil 10 mg oral tab 1 tab twice a day 5. famotidine 20 mg Oral tab at noon 6. Lovenox Sub-Q 7. memantine 10 mg oral tab 1 tab 2 times per day 8. midodrine 5 mg oral tab 3 times per day 9. omeprazole 20 mg Oral cpDR 1 cap 2 times per day 10. potassium chloride 10 mEq Oral TbER 1 tab 2 times per day 11. Prochlorperazine Maleate Oral as needed 12. Vitamin B-12 500 mcg Oral tab 13. Vitamin D Oral 1000 unit daily 14. Vytorin 10-40 10-40 mg oral tab 1 tab once daily - PMHx: dementia/alzheimer; Hypertension; hypotension; kidney failure; Multiple Myeloma; - PSHx: none; - Social history: Smoking status: Patient states was never smoker of tobacco. No barriers to communication noted, The patient speaks fluent German, Speaks appropriately for age. - Family history: Not pertinent. - : The pt / caregiver states he / she is on anticoagulants: Lovenox. Home medication list is obtained from the patient. - Exposure Risk Screening:: None identified. Screenin:01 Screening information is obtained from the patient. Fall risk: At risk due to age, The mlb1 following interventions are performed due to a positive Fall Risk Screen: Fall Risk is added to Special Handling on the patient Summary Screen. A Fall Risk Bracelet was applied to the patient. Side Rails are placed in the up position. A Call Alvarado is given with instruction to call for help when getting out of bed. Fall Alert bracelet is placed on the patient. Assistance ADL's: Requires assistance with meal preparation, this assistance is provided by family members, ambulation, assistance is provided by family members, medication administration, assistance is provided by family members. Abuse/DV Screen: The patient / caregiver reports he/she is: not in a situation that causes fear, pain or injury. Nutritional screening: No deficits noted. Advance Directives: Currently, there is no health care proxy. home support is adequate. Assessment: 10:00 General: Appears in no apparent distress, Behavior is appropriate for age, cooperative. mlb1 Pain: Location: medial aspect of right calf Pain currently is 9 out of 10 on a pain scale. Neurological: No deficits noted. Musculoskeletal: Circulation, motion, and sensation intact. Vital Signs: 09:15 BP 104 / 71; Pulse 103; Resp 20; Pulse Ox 99% on R/A; Weight 66 kg (R); Height 5 ft. 4 elp in. (162.56 cm) (R); 09:41 Temp 97(TE); ls3 09:15 Body Mass Index 24.98 (66.00 kg, 162.56 cm) [facility] Vitals: 09:15 Log In Time: December 08, 2016 at 09:13. [facility] ED Course: 09:13 Patient visited by Vianca Negro PCA. elp 09:13 Patient moved to Waiting elp 09:15 Zak Norton is Private Physician. elp 09:16 Patient moved to Pre RCE elp 09:20 Triage Initiated bc 09:21 Patient visited by Víctor Castro RN. bcj 09:22 Patient moved to Triage 2 bcj 09:26 [facility]ent [facility] ef1 09:26 Vanesa Pandey MD is Attending Physician. ef1 09:28 Patient visited by Marimar Nugent PA-C. ef1 09:55 Zak Norton is Referral Physician. ef1 10:01 No IV's were initiated during this patient's visit. No procedures done that require mlb1 assistance. 10:02 The patient / caregiver is instructed regarding the plan of care and ED course. mlb1 10:11 [facility] Payment Agreement was scanned into [employer] and attached to record. mm15 10:40 T-Sheet-- Draft Copy was scanned into [employer] and attached to record. [facility] Order Results: There are currently no results for this order. Outcome: 09:55 Discharge ordered by Provider. ef1 10:01 Discharge Assessment: Patient awake, alert and oriented x 3. No cognitive and/or mlb1 functional deficits noted. Patient verbalized understanding of disposition instructions. patient administered narcotics - no. The following High Risk Discharge criteria are identified: None. Discharged to home ambulatory, with family. Condition: good. Discharge instructions given to patient, Instructed on discharge instructions, follow up and referral plans. medication usage, no driving heavy equipment, Demonstrated understanding of instructions, medications, Pt was receptive of discharge instructions/ teaching. Prescriptions given X 1. No special radiology studies were completed. Property sent home with patient. 10:02 Patient left the ED. mlb1 Signatures: Víctor Castro, DOREEN RN Behzad Gutierrez RN RN mlb1 Marimar Nugent PA-C PA-C ef1 Rene Rivera mm15 Vianca Negro, COIL SPRING ASSEMBLER COIL SPRING ASSEMBLER elp Malgorzata Ybarra, COIL SPRING ASSEMBLER COIL SPRING ASSEMBLER ls3 Vanesa Purdy [facility] Chart Complete MTDD
--- NOTE | 2016-12-10 11:03 | EDDOCDS ---
Physician Documentation [facility] Name: Ruthann Vergara Age: 81 yrs Sex: Female : 1935 Arrival Date: 12/08/2016 Time: 09:12 Bed Triage 2 Private MD: Zak Norton MD Disposition: 12/08/16 09:55 Discharged to Home/Self Care. Impression: Pain in right lower leg - Post I&D of Hematoma, Encounter for change or removal of surgical wound dressing - Wound Recheck. - Condition is Stable. - Discharge Instructions: Dressing Change, Incision Care, [id number]. - Prescriptions for Percocet 5- 325 mg Oral Tablet - take 1 tablet by ORAL route every 6 hours As needed MDD: 4 tabs; 10 tablet. - Medication Reconciliation, Local Pharmacy Hours form. - Follow up: Zak Norton; When: 1 - 2 days; Reason: Recheck today's complaints, Continuance of care. Follow up: Emergency Department; Reason: Worsening of conditions. - Problem is new. - Symptoms have improved. Historical: - Allergies: no known allergies; - Home Meds: 1. aspirin 81 mg Oral tab 1 tab once daily 2. beleade injections every saturday 3. Decadron saturday Oral 5 tab 4. donepezil 10 mg oral tab 1 tab twice a day 5. famotidine 20 mg Oral tab at noon 6. Lovenox Sub-Q 7. memantine 10 mg oral tab 1 tab 2 times per day 8. midodrine 5 mg oral tab 3 times per day 9. omeprazole 20 mg Oral cpDR 1 cap 2 times per day 10. potassium chloride 10 mEq Oral TbER 1 tab 2 times per day 11. Prochlorperazine Maleate Oral as needed 12. Vitamin B-12 500 mcg Oral tab 13. Vitamin D Oral 1000 unit daily 14. Vytorin 10-40 10-40 mg oral tab 1 tab once daily - PMHx: dementia/alzheimer; Hypertension; hypotension; kidney failure; Multiple Myeloma; - PSHx: none; - Social history: Smoking status: Patient states was never smoker of tobacco. No barriers to communication noted, The patient speaks fluent Thai, Speaks appropriately for age. - Family history: Not pertinent. - : The pt / caregiver states he / she is on anticoagulants: Lovenox. Home medication list is obtained from the patient. - Exposure Risk Screening:: None identified. Vital Signs: 12/08 09:15 BP 104 / 71; Pulse 103; Resp 20; Pulse Ox 99% on R/A; Weight 66 kg / 145.51 lbs (R); elp Height 5 ft. 4 in. (162.56 cm) (R); 09:41 Temp 97(TE); ls3 09:15 Body Mass Index 24.98 (66.00 kg, 162.56 cm) elp MDM: 09:39 Vital Signs ordered. ef1 09:58 Financial registration complete. mm15 10:11 [facility] Payment Agreement was scanned into [employer] and attached to record. mm15 10:40 T-Sheet-- Draft Copy was scanned into [employer] and attached to record. [facility] Signatures: Víctor Castro RN RN Behzad Gutierrez RN RN mlb1 Marimar Nugent, PA-C PA-C ef1 Rene Rivera mm15 Vanesa Purdy [facility] The chart was reviewed and I authenticate all verbal orders and agree with the evaluation and treatment provided.Attachments: 10:11 [facility] Payment Agreement mm15 10:40 T-Sheet-- Draft Copy [facility] Chart Complete MTDD
== END 2016-12-08 10:02 | disposition home or self-care (01) ==
LOC: M ED 09:12
DX: G89.18 Other acute postprocedural pain (principal); M79.81 Nontraumatic hematoma of soft tissue; Z51.89 Encounter for other specified aftercare; G30.9 Alzheimer's disease, unspecified; I10 Essential (primary) hypertension; N19 Unspecified kidney failure; C90.00 Multiple myeloma not having achieved remission; Z79.01 Long term (current) use of anticoagulants; Z79.82 Long term (current) use of aspirin; Z79.899 Other long term (current) drug therapy

== ENCOUNTER 2017-01-01 12:01 | Inpatient (IN) | payer MEDICARE, MEDICAID ==
[~2017-01-01] VITALS: Ht 162.6 cm; Wt 78.8 kg
[2017-01-01 13:07] LABS: BASO % 0.2 % (0.0-1.0); LARGE UNSTAINED CELL # 0.1 K/mm3 (0.0-0.4); LARGE UNSTAINED CELL % 1.2 % (0.0-4.0); LYMPH # 0.8 K/mm3 (1.5-4.5); LYMPH % 19.5 % (24.0-44.0); MEAN CORPUSCULAR HGB CONC 28.7 g/dl (32.0-36.5); MEAN CORPUSCULAR VOLUME 97.5 fl (80.0-96.0); MONO # 0.2 K/mm3 (0.0-0.8); MONO % 5.5 % (0.0-5.0); NEUTROPHILS # 2.8 K/mm3 (1.8-7.7); NEUTROPHILS % 72.5 % (36.0-66.0); PLATELET COUNT, AUTOMATED 296 k/mm3 (150-450); WHITE BLOOD COUNT 3.9 K/mm3 (4.0-10.0)
[2017-01-01 13:11] LABS: INR 1.07
[2017-01-01 13:20] LABS: CALCIUM LEVEL 7.5 MG/DL (8.8-10.2); CREATININE FOR GFR 1.21 MG/DL (0.55-1.02); GLOMERULAR FILTRATION RATE 45.6 (>32); POTASSIUM SERUM 4.7 MEQ/L (3.5-5.1)
[2017-01-01] MEDS ORDERED: CEPH500C PO (13:28)
[2017-01-01] MEDS ORDERED: SILV50CR TOP (13:29)
[2017-01-01 13:36] LABS: ERYTHROCYTE SEDIMENTATION RATE 70 mm/hr (0-30)
[2017-01-01] MEDS ORDERED: LORA10TA2 PO (13:37)
[2017-01-01] MEDS ORDERED: MIDO10TA PO (13:37)
[2017-01-01] MEDS ORDERED: LOVE0.4I2 SC (13:37)
[2017-01-01] MEDS ORDERED: AMIO20TA PO (13:37)
[2017-01-01] MEDS ORDERED: GABA-279 PO (13:37)
[2017-01-01] MEDS ORDERED: CALC600T3 PO (13:37)
--- NOTE | 2017-01-01 14:54 | REP ---
CT study of the right calf without IV contrast: History: Large wound. History of hematoma evacuated. Comparison radiographs are from December 08, 2016. Findings: Cortical and medullary bone density are normal. No fracture is seen. There is some vascular calcification in the calf soft tissues. No opaque foreign body is seen. There is a large superficial subdermal soft tissue hematoma in the lateral aspect of the distal calf soft tissues similar to the to the radiographic appearance from December 08, 2016. The hematoma appears to be a little more extensive than on that radiographic series. It measures 9.1 cm in anterior to posterior dimension by 4.0 cm in medial to lateral span by 19 cm in craniocaudal span. Along its inferior margin, there is a open wound in the overlying skin extending into the distal edge of the hematoma. This airspace representing the open wound measures 3.2 cm anterior to posterior by 1.7 cm medial to lateral by 4.4 cm cranial to caudal. There is no visible abscess. No soft tissue gas is seen other than in this open wound. There is some diffuse subcutaneous fat edema. Impression: Large subdermal lateral soft tissue hematoma. The distal end shows a open air containing wound. No evidence of abscess or other soft tissue gas. The hematoma appears a little larger than on the radiographs from December 08, 2016. No fracture or opaque foreign body seen. Signed by Dre Carter MD 01/01/2017 04:19 P
--- NOTE | 2017-01-01 15:34 | HPEPDOC ---
Medical History and Physical Date of Admission 01/01/17 History and Physical ATTENDING: Dr. Lawson PCP: Maryellen CAMPO CC: RLE wound HPI: 81yoF with a past medical history significant for MM, dementia, H/O PE d/c from [facility] on Lovenox 11/21/16 seen in ED with hematoma RLE 12/08/16 which was I&D and left open per notes. Pt returned to ED today related to persistent hematoma RLE. Pt answers "I don't know" and "I don't pay attention" to most questions. No family present at this time. Denies any fevers, chills, weakness, fatigue, [place], CP, SOB, cough, palpitations, abdominal pain, N/V/D or changes in bowel or bladder habits. Pt denies falls and states she does not use any assistive devices for ambulation. Upon presentation to the hospital the patient was found to have hematoma RLE, thus the hospitalist team was consulted. 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 ROS: Pt unable to provide at this time. PE: GEN: 81yoF, appears stated age. Well-nourished, well developed. No acute distress. Alert and oriented x to person/place, not oriented to time. Pleasant, interactive. HEENT: Normocephalic, atraumatic. Pupils are equal, round, and reactive to light. Extraocular movements are intact. No nystagmus appreciated. Sclera are nonicteric. Conjunctiva without injection. Nose midline. Nasal turbinates without bogginess. EACs both patent BL. No facial asymmetry. Moist mucous membranes. Pharynx pink and moist, no cobblestoning. Neck supple, trachea midline. No lymphadenopathy or thyromegaly appreciated. CHEST: Regular rate and rhythm, +S1, +S2 LUNGS: Clear to auscultation bilaterally. No wheezes, rales, or rhonchi. Breathing appears symmetric and easy. Patient is speaking in full sentences. No accessory muscle use. ABD: Round, soft, non-tender, non-distended. +Bowel sounds throughout. No rebound or guarding. No costovertebral angle tenderness. EXT: Pulses are palpable RLE. 2 mm pitting to prox pretib area b/l. SKIN: There is an approximate 18cm x 10 cm open wound Rt lateral lower extremity with central appearing hematoma, bloody and yellowish drainage noted. There are excoriations on hands b/l and ecchymotic areas on UEs b/l. NEURO: Alert and oriented x 3. Cranial nerves III-XII are intact. No focal deficits appreciated. CT LE 01/01/17: Large subdermal lateral soft tissue hematoma. The distal end shows a open air containing wound. No evidence of abscess or other soft tissue gas. The hematoma appears a little larger than on the radiographs from December 08, 2016. No fracture or opaque foreign body seen. A&P: 81yoF with a past medical history significant for MM, dementia, afib with RVR d/c from [facility] on Lovenox 11/21/16 seen in ED with hematoma RLE 12/08/16 which was I&D and left open per notes. Pt returned to ED today related to persistent hematoma RLE. The patient will be admitted to /S for at least [address] Lawson's service. Pt is discussed with Dr Saha. Hematoma RLE. HOLD ASA/Lovenox. Surgical CLt with Dr Bedolla, he will see her in ED. IV Vancomycin. NPO/IVF. Consent for transfusion complated in ED and is on chart. Acute anemia. 1 unit PRBC ordered. Trend CBC Q6 hrs. CKD3 SCr 1.21. Baseline 1.1-1.2. H/O Afib with RVR. MM. Follows with Dr Adkins. Dementia. Pt unable to provide much history- Family not presently at bedside. H/O Gait dysfunction. h/o hypotension. Currently on Midodrine. H/O Extensive Bilateral Pulmonary Embolism 11/09/DVT 11/09- Hold Lovenox. Attending discussed with Pt possibly proceeding with IVC filter in future. DVT prophylaxis. None related to hematoma and anemia. Unable to apply SCD/TEDS. The patient is a DNR/DNI. MOLST completed in ED. Vital Signs 109/65 102 20 97.3 98% Laboratory Data Labs 24H Laboratory Tests 2 01/01/17 12:47: Activated Partial Thromboplast Time 37.7H, Anion Gap 11, White Blood Count 3.9L , Red Blood Count 2.76L, Hemoglobin 7.7L, Hematocrit 27.0L, Mean Corpuscular Volume 97.5H, Mean Corpuscular Hemoglobin 28.0, Mean Corpuscular Hemoglobin Concent 28.7L, Red Cell Distribution Width 15.0H, Platelet Count 296, Neutrophils (%) (Auto) 72.5H, Lymphocytes (%) (Auto) 19.5L, Monocytes (%) (Auto ) 5.5H, Eosinophils (%) (Auto) 1.0, Basophils (%) (Auto) 0.2, Neutrophils # ( Auto) 2.8, Lymphocytes # (Auto) 0.8L, Monocytes # (Auto) 0.2, Eosinophils # ( Auto) 0.0, Basophils # (Auto) 0.0, C-Reactive Protein, Quantitative 0.37H, Blood Urea Nitrogen 20H, Creatinine 1.21H, Sodium Level 144, Potassium Level 4.7 , Chloride Level 111H, Carbon Dioxide Level 22, Calcium Level 7.5L, Erythrocyte Sedimentation Rate 70H, Glomerular Filtration Rate 45.6, Large Unclassified Cells # 0.1, Large Unclassified Cells % 1.2, Prothromb Time International Ratio 1.07, Prothrombin Time 14.0 CBC/BMP Laboratory Tests 01/01/17 12:47 Calcium Level 7.5 L, Red Blood Count 2.76 L, Mean Corpuscular Volume 97.5 H, Mean Corpuscular Hemoglobin 28.0, Mean Corpuscular Hemoglobin Concent 28.7 L, Red Cell Distribution Width 15.0 H, Neutrophils (%) (Auto) 72.5 H, Lymphocytes ( %) (Auto) 19.5 L, Monocytes (%) (Auto) 5.5 H, Eosinophils (%) (Auto) 1.0, Basophils (%) (Auto) 0.2, Neutrophils # (Auto) 2.8, Lymphocytes # (Auto) 0.8 L, Monocytes # (Auto) 0.2, Eosinophils # (Auto) 0.0, Basophils # (Auto) 0.0 Home Medications Scheduled (Vytorin 10-40 mg) 1 Tab Tab 1 TAB PO QPM SEE COMMENTS ([Beleade]) 1 DOSE INJ QWEEK THURSDAYS - HAS NOT HAD FOR A FEW WEEKS Amiodarone HCl (Amiodarone HCl) 200 Mg Tab 200 MG PO DAILY Aspirin (Aspirin 81) 81 Mg Tab 81 MG PO DAILY Calcium Carbonate (Calcium Carbonate) 600 Mg Tab 600 MG PO BID Cholecalciferol (Vitamin D-1000) 1,000 Unit Tab 1,000 UNIT PO DAILY Cyanocobalamin (Vitamin B-12) 1,000 Mcg Tab 1,000 MCG PO DAILY Dexamethasone (Dexamethasone) 4 Mg Tab 20 MG PO QWEEK ON - USUALLY THURSDAYS Donepezil Hcl (Donepezil HCl) 10 Mg Tab 10 MG PO BID Enoxaparin (Lovenox) 80 Mg/0.8 Ml Syr 70 MG SC Q12H Famotidine (Famotidine) 20 Mg Tab 20 MG PO DAILY TAKE AT NOON Memantine Hydrochloride (Memantine HCl) 10 Mg Tab 10 MG PO BID Midodrine HCl (Midodrine HCl) 10 Mg Tab 10 MG PO TID Omeprazole (Omeprazole) 20 Mg Cap 20 MG PO BID Potassium Chloride (Klor-Con M10) 10 Meq Tabcr 10 MEQ PO BID Silver Sulfadiazine (Ssd) 1 % Cre 1 DOSE TOP BID APPLY WITH DRESSING CHANGES TO RIGHT LEG Scheduled PRN Gabapentin (Gabapentin) 100 Mg Cap 100 MG PO TID PRN PRN PAIN Loratadine (Loratadine) 10 Mg Tab 10 MG PO DAILY PRN PRN ALLERGIES Prochlorperazine Maleate (Prochlorperazine Maleate) 10 Mg Tab 10 MG PO PRN PRN PRN NAUSEA OR VOMITING Allergies Coded Allergies: No Known Allergies (Unverified , 08/25/16) Rylee Recinos Jan 01, 2017 15:34 VIOLETTA SAHA MD Jan 14, 2017 12:38 Rylee Recinos Jan 01, 2017 15:34
[2017-01-01] MEDS ORDERED: NS 1,000 ML IV SCH (15:48)
[2017-01-01] MEDS ORDERED: LORATADINE 10 MG TAB PO PRN (16:00)
--- NOTE | 2017-01-01 17:54 | EDDOCDS ---
Nurse's Notes [facility] Name: Ruthann Vergara Age: 81 yrs Sex: Female : 1935 Arrival Date: 01/01/2017 Time: 12:01 Bed 14 Private MD: Behzad Quiles FPA Diagnosis: Anemia in chronic diseases classified elsewhere;Localized swelling, mass and lump, right lower limb-large open wound. Presentation: 01/01 12:06 Presenting complaint: Patient states: was seen here for hematoma on right leg (calf hs1 area) and it was evacuated here and left open. Patient was here December 08 per family. Patient and family concerned over not healing and continuation of blood thinners. Adult Sepsis Screening: The patient does not have new or worsening altered mentation. Patient's respiratory rate is less than 22. Systolic blood pressure is greater than 100. Patient has a qSOFA score of 0- Negative Sepsis Screen. Suicide/Homicide risk assessment- the patient denies having any suicidal and/or homicidal ideations and does not present with any other emotional, behavioral or mental health complaints. Status: Patient is not a administrative services manager or dependent. Transition of care: patient was not received from another setting of care. 12:06 Acuity: KELSIE Level 4 hs1 12:06 Method Of Arrival: Wheelchair hs1 Triage Assessment: 12:16 General: Appears in no apparent distress, Behavior is cooperative, pleasant. Pain: hs1 Denies pain. Neurological: Level of Consciousness is awake, alert, confused, pleasantly confused. Patient has hx of dementia and family states at baseline. . Respiratory: No deficits noted. Airway is patent Respiratory effort is even, unlabored. Historical: - Allergies: No known drug Allergies; - Home Meds: 1. Keflex 500 mg Oral cap three times a day 2. Silvadene 1 % Topical crea 2 times per day 3. atorvastatin 10 mg oral tab 1 tab once daily 4. aspirin 81 mg Oral tab 1 tab once daily 5. famotidine 20 mg Oral tab at noon 6. gabapentin 100 mg Oral cap 100 mg 3 times per day 7. midodrine 10 mg oral tab 1 tab 3 times per day 8. Vitamin B-12 1,000 mcg oral TbER 1,000 mcg daily 9. omeprazole 20 mg Oral TbEC 1 cap 2 times per day 10. potassium chloride 10 mEq Oral TbER 1 tab 2 times per day 11. Vitamin D Oral 1000 unit daily 12. memantine 10 mg oral tab 1 tab 2 times per day 13. donepezil 10 mg oral tab 1 tab twice a day 14. Claritin 10 mg Oral tab 1 tab once daily 15. Lovenox 60 mg/0.6 mL subcutaneous syrg every 12 hours 16. Decadron saturday Oral 20 mg weekly 17. prochlorperazine maleate 5 mg oral tab 1 tab as needed 18. beleade injections every saturday chemotherapy has been on hold - PMHx: dementia/alzheimer; Hypertension; hypotension; kidney failure; Multiple Myeloma; - PSHx: Hysterectomy; Cataract Surgery- Bilateral; - Social history: Smoking status: Patient states was never smoker of tobacco. No barriers to communication noted, The patient speaks fluent Algerian, Speaks appropriately for age. - Family history: Not pertinent. - : The pt / caregiver states he / she is on anticoagulants: Lovenox. Home medication list is obtained from family members. - Exposure Risk Screening:: None identified. Screenin:53 Screening information is obtained from the patient. Fall risk: At risk due to mcp immobility, The following interventions are performed due to a positive Fall Risk Screen: Fall Risk is added to Special Handling on the patient Summary Screen. A Fall Risk Bracelet was applied to the patient. Side Rails are placed in the up position. A Call Alvarado is given with instruction to call for help when getting out of bed. Fall Alert bracelet is placed on the patient. Assistance ADL's: Requires assistance with meal preparation, this assistance is provided by Home Health Aides, bathing, assistance is provided by Home Health Aides, dressing, assistance is provided by Home Health Aides, toileting, assistance is provided by Home Health Aides, housework, assistance is provided by Home Health Aides, medication administration, assistance is provided by family members. Abuse/DV Screen: The patient / caregiver reports he/she is: not in a situation that causes fear, pain or injury. Nutritional screening: No deficits noted. Advance Directives: Currently, there is a health care proxy, Floresita Vergara. There is an active DNR order but there is no copy available at this time. There is no living will. home support is adequate. Assessment: 12:55 General: Appears in no apparent distress, Behavior is cooperative. Neurological: No mcp deficits noted. Respiratory: Airway is patent Respiratory effort is even, unlabored. Derm: Skin is pink, warm & dry. large open area noted on right lower extremity--dressing removed--large amounts of silvadene noted on wound. 14:19 General: Appears in no apparent distress, Behavior is cooperative. Neurological: No mcp deficits noted. Respiratory: Airway is patent Respiratory effort is even, unlabored. Derm: Skin is pink, warm & dry. 15:30 General: Appears in no apparent distress, Behavior is cooperative. Cardiovascular: ead Rhythm is atrial fibrillation. Respiratory: Airway is patent Respiratory effort is even, unlabored. Derm: Skin is pink, warm & dry. 15:58 General: Verbal consent over phone for blood transfusion by Floresita Vergara, PRINCESS. ead Witnessed by Dr. Saha, this nurse, and Tania Talley, RN. Verbal consent for MOLST form received by Floresita Vergara, HCP for DNR/DNI. . 16:02 General: Dr. Bedolla and Dr. Saha at bedside to see pt for admission. . ead 16:18 General: transfusion of 1 unit PRBC's began infusing. see transfusion records for ead further details. 17:11 General: Appears in no apparent distress, comfortable, Behavior is appropriate for age, ead cooperative. Neurological: Level of Consciousness is awake, alert, obeys commands, Oriented to person, place, time. Respiratory: Airway is patent Respiratory effort is even, unlabored. Derm: Skin is pink, warm & dry. 17:30 General: pt taken to OR with 1st unit PRBC's infusing. . ead Vital Signs: 12:04 BP 109 / 65; Pulse 102; Resp 20; Pulse Ox 98% ; Weight 65.77 kg; Height 5 ft. 4 in. elp (162.56 cm); 12:26 Temp 97.3(TE); Pain 0/10; dem1 14:20 BP 118 / 67; Pulse 73; Resp 18; Pulse Ox 94% ; ead 16:18 BP 117 / 70; Pulse 96; Resp 18; Temp 97.0(TE); Pulse Ox 96% on R/A; ead 16:19 BP 115 / 68 (auto/); ead 16:20 Pulse 94 MON; Pulse Ox 93% ; ead 16:34 BP 115 / 64 (auto/); ead 16:35 Pulse 96 MON; Pulse Ox 96% ; ead 16:48 Pulse 96 MON; Pulse Ox 95% ; ead 16:49 BP 118 / 66 (auto/); Resp 18; Temp 96.7(TE); ead 17:04 BP 112 / 65 (auto/); ead 17:05 Pulse 88 MON; Resp 18; Pulse Ox 96% on R/A; ead 17:19 BP 115 / 71 (auto/); ead 17:20 Pulse 92 MON; Resp 18; Pulse Ox 96% on R/A; ead 12:04 Body Mass Index 24.89 (65.77 kg, 162.56 cm) [facility] Vitals: 12:04 Log In Time: January 01, 2017 at 12:02. [facility] ED Course: 12:03 Patient visited by Vianca Negro PCA. elp 12:03 Behzad Quiles is Private Physician. elp 12:03 Patient moved to Waiting elp 12:04 Patient visited by Vianca Negro PCA. elp 12:04 Patient moved to Pre RCE elp 12:08 Triage Initiated hs1 12:12 Patient moved to Triage 1 dem1 12:18 [facility] Cerda [facility] cc10 12:18 Vanesa Pandey MD is Attending Physician. cc10 12:19 Patient visited by Bubba Cerda PA-C. cc10 12:19 Patient visited by Bubba Cerda PA-C. cc10 12:27 Patient visited by Harpreet Griffin. dem1 12:28 Patient moved to I7 dem1 12:47 [facility] Payment Agreement was scanned into [employer] and attached to record. mm15 12:52 Pt & Aptt Sent. mcp 12:52 ESR Sent. mcp 12:52 CRP Sent. mcp 12:52 BMP Sent. mcp 12:52 CBC with Diff Sent. mcp 12:53 The patient / caregiver is instructed regarding the plan of care and ED course. Patient mcp has correct armband on for positive identification. Placed in gown. Bed in low position. Call light in reach. Side rails up X2. Adult w/ patient. 12:53 Inserted saline lock: 20 gauge in left antecubital area and blood collected. [facility] patient tolerated the procedure well. Labs drawn. (by ED staff). Sent per order to lab. 12:57 Patient visited by Diane Bravo RN. [facility] 13:58 Dallas Saha is Hospitalizing Provider. cc10 14:13 Ching Rawls,DOREEN is Primary Nurse. ck1 14:13 Patient moved to 14 ck1 14:19 Inserted saline lock: 20 gauge in right antecubital area and blood collected. [facility] patient tolerated the procedure well. Labs drawn. (by ED staff). Sent per order to lab. 14:20 Patient visited by Diane Bravo RN. [facility] 14:20 social security specialist on. Pulse ox on. NIBP on. ead 15:36 CT Tib/Fib Without Contrast Returned. EDMS 16:18 Blood products: PRBCs X 1 unit given. See transfusion record. ead 17:11 No procedures done that require assistance. ead Order Results: Lab Order: CBC with Diff; SPEC'M 01/01/17 12:47 Test: WHITE BLOOD COUNT; Value: 3.9; Range: 4.0-10.0; Abnormal: Below low normal; Units: K/mm3; Status: F Test: RED BLOOD COUNT; Value: 2.76; Range: 4.00-5.40; Abnormal: Below low normal; Units: M/mm3; Status: F Test: HEMOGLOBIN; Value: 7.7; Range: 12.0-16.0; Abnormal: Below low normal; Units: g/dl; Status: F Test: HEMATOCRIT; Value: 27.0; Range: 36.0-47.0; Abnormal: Below low normal; Units: %; Status: F Test: MEAN CORPUSCULAR VOLUME; Value: 97.5; Range: 80.0-96.0; Abnormal: Above high normal; Units: fl; Status: F Test: MEAN CORPUSCULAR HEMOGLOBIN; Value: 28.0; Range: 27.0-33.0; Units: pg; Status: F Test: MEAN CORPUSCULAR HGB CONC; Value: 28.7; Range: 32.0-36.5; Abnormal: Below low normal; Units: g/dl; Status: F Test: RED CELL DISTRIBUTION WIDTH; Value: 15.0; Range: 11.5-14.5; Abnormal: Above high normal; Units: %; Status: F Test: PLATELET COUNT, AUTOMATED; Value: 296; Range: 150-450; Units: k/mm3; Status: F Test: NEUTROPHILS %; Value: 72.5; Range: 36.0-66.0; Abnormal: Above high normal; Units: %; Status: F Test: LYMPH %; Value: 19.5; Range: 24.0-44.0; Abnormal: Below low normal; Units: %; Status: F Test: MONO %; Value: 5.5; Range: 0.0-5.0; Abnormal: Above high normal; Units: %; Status: F Test: EOS %; Value: 1.0; Range: 0.0-3.0; Units: %; Status: F Test: BASO %; Value: 0.2; Range: 0.0-1.0; Units: %; Status: F Test: LARGE UNSTAINED CELL %; Value: 1.2; Range: 0.0-4.0; Units: %; Status: F Test: NEUTROPHILS #; Value: 2.8; Range: 1.8-7.7; Units: K/mm3; Status: F Test: LYMPH #; Value: 0.8; Range: 1.5-4.5; Abnormal: Below low normal; Units: K/mm3; Status: F Test: MONO #; Value: 0.2; Range: 0.0-0.8; Units: K/mm3; Status: F Test: EOS #; Value: 0.0; Range: 0.0-0.50; Units: K/mm3; Status: F Test: BASO #; Value: 0.0; Range: 0.0-0.2; Units: K/mm3; Status: F Test: LARGE UNSTAINED CELL #; Value: 0.1; Range: 0.0-0.4; Units: K/mm3; Status: F Lab Order: [facility]; SPEC'M 01/01/17 12:47 Test: GLUCOSE, FASTING; Value: 91; Range: 83-110; Units: MG/DL; Status: F Test: BLOOD UREA NITROGEN; Value: 20; Range: 7-18; Abnormal: Above high normal; Units: MG/DL; Status: F Test: CREATININE FOR GFR; Value: 1.21; Range: 0.55-1.02; Abnormal: Above high normal; Units: MG/DL; Status: F Test: GLOMERULAR FILTRATION RATE; Value: 45.6; Range: >32; Status: F Test: SODIUM LEVEL; Value: 144; Range: 136-145; Units: MEQ/L; Status: F Test: POTASSIUM SERUM; Value: 4.7; Range: 3.5-5.1; Units: MEQ/L; Status: F Test: CHLORIDE LEVEL; Value: 111; Range: 98-107; Abnormal: Above high normal; Units: MEQ/L; Status: F Test: CARBON DIOXIDE LEVEL; Value: 22; Range: 21-32; Units: MEQ/L; Status: F Test: ANION GAP; Value: 11; Range: 8-16; Units: MEQ/L; Status: F Test: CALCIUM LEVEL; Value: 7.5; Range: 8.8-10.2; Abnormal: Below low normal; Units: MG/DL; Status: F Test Note: ; Units are mL/min/1.73 m2 Chronic Kidney Disease Staging per NKF: Stage I & II GFR >=60 Normal to Mildly Decreased Stage III GFR 30-59 Moderately Decreased Stage IV GFR 15-29 Severely Decreased Stage V GFR <15 Very Little GFR Left ESRD GFR <15 on SUSTAINABLE DESIGN COORDINATOR Lab Order: CRP; [facility]01/01/17 12:47 Test: C REACTIVE PROTEIN QUANTITATIV; Value: 0.37; Range: 0.00-0.30; Abnormal: Above high normal; Units: MG/DL; Status: F Lab Order: ESR; [facility]01/01/17 12:47 Test: ERYTHROCYTE SEDIMENTATION RATE; Value: 70; Range: 0-30; Abnormal: Above high normal; Units: mm/hr; Status: F Lab Order: Pt & Aptt; [facility]01/01/17 12:47 Test: PROTHROMBIN TIME; Value: 14.0; Range: 12.3-14.5; Units: SECONDS; Status: F Test: INR; Value: 1.07; Status: F Test: PARTIAL THROMBOPLASTIN TIME; Value: 37.7; Range: 26.6-37.1; Abnormal: Above high normal; Units: SECONDS; Status: F Test Note: ; THERAPUTIC HUMAN INR VALUES INDICATIONS NORMAL RANGES PROPHYLAXIS/TREATMENT OF: VENOUS THROMBOSIS 2.0-3.0 PULMONARY EMBOLISM 2.0-3.0 PREVENTION OF SYSTEMIC EMBOLISM FROM: TISSUE HEART VALVES 2.0-3.0 ACUTE MYOCARDIAL INFARCTION 2.0-3.0 VALVULAR HEART DISEASE 2.0-3.0 ATRIAL FIBRILLATION 2.0-3.0 MECHANICAL VALVES(HIGH RISK) 2.5-3.5 RECURRENT MYOCARDIAL INFARCTION 2.5-3.5 Lab Order: TYPE & SCREEN; SPEC'M 01/01/17 14:06 Test: BLOOD TYPE; Value: O POS; Status: F Test: AB SCREEN (INDIRECT FRANC)VIS; Value: NEGATIVE; Status: F Test: IMMEDIATE SPIN CROSSMATCH; Value: [id number] O POSITIVE Compatible? Y; Status: F Radiology Order: CT Tib/Fib Without Contrast Test: CT Tib/Fib Without Contrast REASON FOR EXAMINATION: large wound; CT study of the right calf without IV contrast:; ; History: Large wound. History of hematoma evacuated. Comparison radiographs; are from December 08, 2016.; ; Findings: Cortical and medullary bone density are normal. No fracture is seen.; There is some vascular calcification in the calf soft tissues. No opaque foreign; body is seen.; ; There is a large superficial subdermal soft tissue hematoma in the lateral aspect; of the distal calf soft tissues similar to the to the radiographic appearance; from December 08, 2016. The hematoma appears to be a little more extensive than; on that radiographic series. It measures 9.1 cm in anterior to posterior; dimension by 4.0 cm in medial to lateral span by 19 cm in craniocaudal span.; Along its inferior margin, there is a open wound in the overlying skin extending; into the distal edge of the hematoma. This airspace representing the open wound; measures 3.2 cm anterior to posterior by 1.7 cm medial to lateral by 4.4 cm; cranial to caudal. There is no visible abscess. No soft tissue gas is seen; other than in this open wound. There is some diffuse subcutaneous fat edema.; ; Impression:; ; Large subdermal lateral soft tissue hematoma. The distal end shows a open air; containing wound. No evidence of abscess or other soft tissue gas. The hematoma; appears a little larger than on the radiographs from December 08, 2016. No; fracture or opaque foreign body seen.; ; ; Signed by; Dre Carter MD 01/01/2017 04:19 P; Outcome: 13:59 Decision to Hospitalize by Provider. cc10 17:25 Discharge Assessment: Patient awake and alert. obeys commands, Oriented to person, ead place and time. patient administered narcotics - no. The following High Risk Discharge criteria are identified: None. Admitted to OR accompanied by nurse, accompanied by tech, family with patient, via stretcher, on monitor, with chart. Condition: stable. CT Study completed. Property given to family member, Braden (). 17:53 Patient left the ED. ead Signatures: Dispatcher [employer] EDMS Diane Bravo RN RN Jackie VallesRN RN ck1 Cassi Pierson RN RN hs1 Harpreet Griffin dem1 Rene Rivera mm15 Vianca Negro, NON DESTRUCTIVE TESTING SUPERVISOR NON DESTRUCTIVE TESTING SUPERVISOR Ching Voss RN RN ead Bubba Cerda, PA-C PA-C cc10 MTDD
--- NOTE | 2017-01-01 17:54 | EDDOCDS ---
Physician Documentation [facility] Name: Ruthann Vergara Age: 81 yrs Sex: Female : 1935 Arrival Date: 01/01/2017 Time: 12:01 Bed 14 Private MD: Behzad Quiles FPA Disposition: 01/01/17 13:59 Hospitalization ordered by Dallas Saha for Inpatient Admission. Preliminary diagnosis are Anemia in chronic diseases classified elsewhere, Localized swelling, mass and lump, right lower limb - large open wound.. - Bed requested for PCU. - Status is Inpatient Admission. ead - Condition is Stable. - Problem is chronic. - Symptoms are unchanged. Historical: - Allergies: No known drug Allergies; - Home Meds: 1. Keflex 500 mg Oral cap three times a day 2. Silvadene 1 % Topical crea 2 times per day 3. atorvastatin 10 mg oral tab 1 tab once daily 4. aspirin 81 mg Oral tab 1 tab once daily 5. famotidine 20 mg Oral tab at noon 6. gabapentin 100 mg Oral cap 100 mg 3 times per day 7. midodrine 10 mg oral tab 1 tab 3 times per day 8. Vitamin B-12 1,000 mcg oral TbER 1,000 mcg daily 9. omeprazole 20 mg Oral TbEC 1 cap 2 times per day 10. potassium chloride 10 mEq Oral TbER 1 tab 2 times per day 11. Vitamin D Oral 1000 unit daily 12. memantine 10 mg oral tab 1 tab 2 times per day 13. donepezil 10 mg oral tab 1 tab twice a day 14. Claritin 10 mg Oral tab 1 tab once daily 15. Lovenox 60 mg/0.6 mL subcutaneous syrg every 12 hours 16. Decadron saturday Oral 20 mg weekly 17. prochlorperazine maleate 5 mg oral tab 1 tab as needed 18. beleade injections every saturday chemotherapy has been on hold - PMHx: dementia/alzheimer; Hypertension; hypotension; kidney failure; Multiple Myeloma; - PSHx: Hysterectomy; Cataract Surgery- Bilateral; - Social history: Smoking status: Patient states was never smoker of tobacco. No barriers to communication noted, The patient speaks fluent [place], Speaks appropriately for age. - Family history: Not pertinent. - : The pt / caregiver states he / she is on anticoagulants: Lovenox. Home medication list is obtained from family members. - Exposure Risk Screening:: None identified. Vital Signs: 01/01 12:04 BP 109 / 65; Pulse 102; Resp 20; Pulse Ox 98% ; Weight 65.77 kg / 145 lbs; Height 5 ft. elp 4 in. (162.56 cm); 12:26 Temp 97.3(TE); Pain 0/10; dem1 14:20 BP 118 / 67; Pulse 73; Resp 18; Pulse Ox 94% ; ead 16:18 BP 117 / 70; Pulse 96; Resp 18; Temp 97.0(TE); Pulse Ox 96% on R/A; ead 16:19 BP 115 / 68 (auto/); ead 16:20 Pulse 94 MON; Pulse Ox 93% ; ead 16:34 BP 115 / 64 (auto/); ead 16:35 Pulse 96 MON; Pulse Ox 96% ; ead 16:48 Pulse 96 MON; Pulse Ox 95% ; ead 16:49 BP 118 / 66 (auto/); Resp 18; Temp 96.7(TE); ead 17:04 BP 112 / 65 (auto/); ead 17:05 Pulse 88 MON; Resp 18; Pulse Ox 96% on R/A; ead 17:19 BP 115 / 71 (auto/); ead 17:20 Pulse 92 MON; Resp 18; Pulse Ox 96% on R/A; ead 12:04 Body Mass Index 24.89 (65.77 kg, 162.56 cm) elp MDM: 12:25 Undress patient appropriately for examination ordered. cc10 12:25 Wound Care ordered. cc10 12:28 IV Saline Lock ordered. cc10 12:29 BED REQUEST+ADM ordered. EDMS 12:30 CBC with Diff Ordered. EDMS 12:30 BMP Ordered. EDMS 12:30 CRP Ordered. EDMS 12:30 ESR Ordered. EDMS 12:30 Pt & Aptt Ordered. EDMS 12:43 Financial registration complete. mm15 12:47 [facility] Payment Agreement was scanned into [employer] and attached to record. mm15 13:43 CT Tib/Fib Without Contrast Ordered. EDMS 13:43 Type and Cross, Packed Cells Ordered. EDMS 13:44 TYPE & SCREEN Ordered. EDMS 13:54 CBC with Diff Reviewed. cc10 13:54 BMP Reviewed. cc10 13:54 CRP Reviewed. cc10 13:54 ESR Reviewed. cc10 13:54 Pt & Aptt Reviewed. cc10 14:00 Transfuse PRBC's 1 unit, ensure PRBCs ordered in lab ordered. cc10 15:01 Admission / Observation Status ordered. EDMS 15:52 NPO DIET ordered. EDMS 15:53 COMPLETE BLOOD COUNT Ordered. EDMS 15:53 COMPLETE BLOOD COUNT Ordered. EDMS Signatures: Dispatcher [employer] EDTania Zarco RN RN Cassi Lewis RN RN hs1 Rene Rivera mm15 Ching Rawls RN RN Bubba Bowers PA-C PAAnn cc10 The chart was reviewed and I authenticate all verbal orders and agree with the evaluation and treatment provided.Corrections: (The following items were deleted from the chart) 14:00 13:42 Transfuse FFP 1 unit, ensure FFP ordered in lab ordered. cc10 cc10 Attachments: 12:47 [facility] [place] mm15 MTDD
[2017-01-01] MEDS ORDERED: VANCOMYCIN 1000 MG/20 ML VIAL (J3370) As Ordered ONE (18:05)
[2017-01-01] MEDS ORDERED: MIDAZOLAM INJ 2 MG/2 ML VIAL (J2250) As Ordered ONE (18:22)
[2017-01-01] MEDS ORDERED: KETAMINE HCL 200 MG/20 ML VIAL As Ordered ONE (18:28)
[2017-01-01] MEDS ORDERED: fentaNYL 100 MCG/2 ML INJECTION (J3010) As Ordered ONE (18:37)
[2017-01-01] MEDS ORDERED: PROPOFOL 200 MG/20 ML VIAL As Ordered ONE (18:37)
[2017-01-01] MEDS ORDERED: LR 1,000 ML IV SCH (19:45)
[2017-01-01] MEDS ORDERED: PERCOCET 5MG/325MG TAB PO PRN (19:45)
[2017-01-01] MEDS ORDERED: fentaNYL 100 MCG/2 ML INJECTION (J3010) IV PRN (19:45)
[2017-01-01] MEDS ORDERED: ONDANSETRON 4MG/2ML VIAL (J2405) IV PRN (19:45)
--- NOTE | 2017-01-01 19:47 | CR ---
DATE OF CONSULTATION: 01/01/2017 REASON FOR CONSULTATION: Right lower extremity hematoma. HISTORY OF PRESENT ILLNESS: The patient is an 81-year-old female who has a large hematoma on the right lower extremity, this started on 12/08/2016. This hematoma developed after being started on blood thinners for a history of blood clots. She came to the emergency room at that time, had a small incision and drainage done and she was on antibiotics at home. However, this wound continued to increase in size. However, due to the nonhealing of the wound and continuing to be on blood thinners, she has had continued drainage around this area. Therefore she came into the emergency room again today for further evaluation. History is difficult to obtain due to the patient having altered mental status from a combination of dementia and Alzheimer's. Most of the history was obtained per the and he states that this has been getting progressively worse since 12/08/2016, has not decreased in size at all. She denies any pain from it but she does have constant drainage. PAST MEDICAL HISTORY: Dementia, Alzheimer's, hypertension, kidney failure and multiple myeloma. PAST SURGICAL HISTORY: Hysterectomy, bilateral cataracts. SOCIAL HISTORY: Denies drug, alcohol, or tobacco abuse. FAMILY HISTORY: Noncontributory. ALLERGIES: None. HOME MEDICATIONS: Please see medical record. They do include Lovenox. REVIEW OF SYSTEMS: Difficult to obtain secondary to the patient's altered mental status. PHYSICAL EXAMINATION: GENERAL: Patient is awake, alert. Blood pressure 109/65, pulse 102, respirations 20, temperature 97.3, pulse oximetry 98%. HEENT: Pupils equally round and reactive to light and accommodation. HEART: S1, S2, regular rate and rhythm. LUNGS: Clear to auscultation bilaterally. ABDOMEN: Soft, nontender, nondistended. Bowel sounds positive. EXTREMITIES: Bilateral lower extremity pitting edema. There is a large hematoma of the right lower extremity approximately 10 x 30 cm in size with overlying necrotic skin overlying it and surrounding it. There is also active serosanguineous drainage circumferentially around this hematoma as well. LABORATORY DATA: White count 3.9, hemoglobin 7.7, platelets 296. CT of tibia and fibula shows large subdermal lateral soft tissue hematoma, distal end showing open air in the wound, this measures 4 cm in depth, 9 cm anterior-posterior, and 20 cm in length. ASSESSMENT/PLAN: The patient again is an 81-year-old female with a large hematoma of the right lower extremity with overlying skin necrosis and she is also here with blood loss anemia likely secondary to this large hematoma. Recommendation at this time is to take her to the operating room for excisional debridement of both the hematoma and all the necrotic skin. Risks and benefits of procedure not limited to, but including, bleeding, infection, need for further procedures, were discussed in detail with the patient's daughter who is the durable power of safety net maker (DPOA) and phone consent was obtained.
[2017-01-01 19:58] LABS: MEAN CORPUSCULAR HEMOGLOBIN 28.3 pg (27.0-33.0); MEAN CORPUSCULAR HGB CONC 29.4 g/dl (32.0-36.5); MEAN CORPUSCULAR VOLUME 96.2 fl (80.0-96.0); RED CELL DISTRIBUTION WIDTH 14.9 % (11.5-14.5); WHITE BLOOD COUNT 3.4 K/mm3 (4.0-10.0)
[2017-01-01 20:54] VITALS: BP 103/57
--- NOTE | 2017-01-01 21:23 | PHACANCOPD ---
PHARMACY VANCOMYCIN DOSING Pt Demographics Demographics Patient Age:81 , Weight:70.700 , Gender: female Adjusted Body Weight Events Past 24 Hours Events Past 24 Hours: NO: Change in CrCl, Dialysis, Diuretic Therapy, Elevation in WBC, Fever, Other, Pending Diagnostics, Pending Procedures Vancomycin Vancomycin Target Ranges: 15-20 mcg/ml Vancomycin Load Y/N: No Load Dose Date Time Vancomycin Load Dose: Date: Time: Vancomycin Dose Date: 01/01/17. Primary Vancomycin Dose: [1GM IV in RR @ 18:00]: CURRENT DOSE: VANCO 1GM IV Q24H (start 01/02/17 06:00) Intermittent Dosing?: No Labs Labs Laboratory Tests 01/01/17 12:47 Calcium Level 7.5 L, Red Blood Count 2.76 L, Mean Corpuscular Volume 97.5 H, Mean Corpuscular Hemoglobin 28.0, Mean Corpuscular Hemoglobin Concent 28.7 L, Red Cell Distribution Width 15.0 H, Neutrophils (%) (Auto) 72.5 H, Lymphocytes ( %) (Auto) 19.5 L, Monocytes (%) (Auto) 5.5 H, Eosinophils (%) (Auto) 1.0, Basophils (%) (Auto) 0.2, Neutrophils # (Auto) 2.8, Lymphocytes # (Auto) 0.8 L, Monocytes # (Auto) 0.2, Eosinophils # (Auto) 0.0, Basophils # (Auto) 0.0 01/01/17 19:46 Red Blood Count 2.77 L, Mean Corpuscular Volume 96.2 H, Mean Corpuscular Hemoglobin 28.3, Mean Corpuscular Hemoglobin Concent 29.4 L, Red Cell Distribution Width 14.9 H Creatinine Clearance Date:01/01/17. Creatinine Clearance: [35 ml/min]. Assessment and Plan Maintaining Current Dose?: Yes Reason for dose change: No Dose Change Pharmacist Note Pharmacist Note Date: 01/01/17. Pharm.D. note: 81YO FEMALE, 70KG in WEIGHT, 64" in HEIGHT, ADMITTED WITH LARGE OPEN WOUND RLE. SHE DID GO TO THE OR AND HAS RECEIVED A 1GM VANCO IV DOSE AT 18:00 IN THE RECOVERY ROOM. GIVEN IT IS TOO LATE FOR A LOADING DOSE, WE WILL CONTINUE WITH VANCO 1GM IV Q24H ORDERED STARTING AT 06:00 01/02/17 (12hrs following the first dose). A VANCO TR WILL BE ORDERED WHEN SHE IS AT STEADY STATE. ZOFIA, Pharm.D. [facility] Jan 01, 2017 21:22
[2017-01-01] MEDS: POTASSIUM CHLORIDE 10 MEQ SR TABLET PO SCH (21:29)
[2017-01-01] MEDS: OMEPRAZOLE 20 MG CAP PO SCH (21:29)
[2017-01-01 21:30] VITALS: BP 117/60
--- NOTE | 2017-01-01 21:30 | RO ---
DATE OF PROCEDURE: 01/01/2017 PREOPERATIVE DIAGNOSIS: Infected hematoma of right lower extremity with necrotic skin and subcutaneous tissues. POSTOPERATIVE DIAGNOSIS: Infected hematoma of right lower extremity with necrotic skin and subcutaneous tissues. PROCEDURE: Sharp excisional debridement of right lower extremity hematoma with debridement of skin and subcutaneous tissue. SURGEON: Dr. Haile Bedolla PARISH VISITOR: None. ANESTHESIA: IV sedation. COMPLICATIONS: None. ESTIMATED BLOOD LOSS: 10 mL. INDICATIONS FOR PROCEDURE: Patient is an 81-year-old female with a large likely infected hematoma with necrotic skin on the right lower extremity. Recommendation was to proceed with excisional debridement. Risks and benefits of the procedure not limited to but including bleeding, infection, need for further surgery were discussed in detail with the patient's daughter. Informed consent was obtained and procedure was planned. DESCRIPTION OF PROCEDURE: The patient was brought back to operating room one and after sufficient sedation, the right lower extremity was sterilely prepped and draped with Betadine. Next, a time-out was done to confirm proper patient, proper procedure. Following that, a 15 blade scalpel was used to sharply excise the necrotic skin edges circumferentially around this wound. Once it was completed, the scalpel was also used to help debride the subcutaneous tissues deep to the hematoma. Once this was done, the hematoma with necrotic skin was all excised all in one large specimen. Once this was completed, scalpel was used to carefully debride a little bit more both circumferentially and on the base. Once this was completed, a wet-to-dry dressing was placed using prep gauze covered by dry Kerlix and this was followed by a Coban wrap. Once this was all completed, the drapes were removed. The patient was awakened from anesthesia and sent to post-anesthesia care unit (PACU) in stable condition.
[2017-01-01 22:01] VITALS: BP 101/57
[2017-01-01 23:27] VITALS: BP 94/58
[2017-01-01 23:59] VITALS: BP 101/57
[2017-01-02 00:13] LABS: MEAN CORPUSCULAR HEMOGLOBIN 27.7 pg (27.0-33.0); MEAN CORPUSCULAR HGB CONC 28.8 g/dl (32.0-36.5); RED CELL DISTRIBUTION WIDTH 15.1 % (11.5-14.5); WHITE BLOOD COUNT 3.4 K/mm3 (4.0-10.0)
[2017-01-02 04:00] VITALS: BP 101/57
[2017-01-02] MEDS: VANCOMYCIN HCL 1,000 MG, VIAL MATE ADAPTER 1 EACH in D5W 250 ML IV SCH (05:58)
[2017-01-02 06:00] LABS: MEAN CORPUSCULAR HEMOGLOBIN 28.5 pg (27.0-33.0); MEAN CORPUSCULAR HGB CONC 29.2 g/dl (32.0-36.5); MEAN CORPUSCULAR VOLUME 97.5 fl (80.0-96.0); RED CELL DISTRIBUTION WIDTH 15.1 % (11.5-14.5); WHITE BLOOD COUNT 3.5 K/mm3 (4.0-10.0)
[2017-01-02 06:01] LABS: ALBUMIN 1.9 GM/DL (3.2-5.2); ALBUMIN/GLOBULIN RATIO 0.7 (1.00-1.93); BILIRUBIN,TOTAL 0.3 MG/DL (0.2-1.0); CALCIUM LEVEL 7.4 MG/DL (8.8-10.2); CREATININE FOR GFR 1.05 MG/DL (0.55-1.02); GLOMERULAR FILTRATION RATE 53.7 (>32); POTASSIUM SERUM 4.6 MEQ/L (3.5-5.1); TOTAL PROTEIN 4.6 GM/DL (6.4-8.2)
[2017-01-02 07:17] LABS: INR 1.04
[2017-01-02 08:00] VITALS: BP 115/68
[2017-01-02] MEDS: OMEPRAZOLE 20 MG CAP PO SCH ×2 (08:37→21:42)
[2017-01-02] MEDS: AMIODARONE 200 MG TAB (PACERONE) PO SCH (08:37)
[2017-01-02] MEDS: MIDODRINE 5 MG TAB PO SCH ×3 (08:37→16:19)
[2017-01-02] MEDS: POTASSIUM CHLORIDE 10 MEQ SR TABLET PO SCH ×2 (08:37→21:43)
[2017-01-02 12:00] VITALS: BP 111/69
[2017-01-02] MEDS: FAMOTIDINE 20 MG TAB PO SCH (12:12)
--- NOTE | 2017-01-02 12:34 | IPN ---
DATE OF SERVICE: 01/02/2017 The patient has no complaints of dizziness, lightheadedness, chest pain, pressure, or tightness. The patient's anemia is stable. Hemoglobin of 8.1. She is status post evacuation of hematoma yesterday. No other issues, per nursing, overnight. Temperature 96.1, pulse 102, respiratory rate 20, blood pressure 115/68, 94% on room air. Lungs are clear to auscultation. No wheezing, rales, or rhonchi. No respiratory accessory muscle use. Heart: S1, S2. Regular rate and rhythm. Abdomen: Soft, nontender, nondistended. Positive bowel sounds. No rebound or guarding. Extremities: Right lower extremity is bandaged. Excoriation bilateral hand ecchymosis, bilateral upper extremities. CT of the extremity show large subdermal lateral soft tissue hematoma with an open air-containing wound. No abscess or soft tissue gas. Hematoma appears larger than on previous 12/08/2016. No fracture or opaque foreign body seen. LABORATORY DATA: Have been reviewed. ASSESSMENT AND PLAN: This is an 81-year-old female with history of chronic kidney disease stage III-IV, follows with Dr. Beck, atrial fibrillation (AFib) with rapid ventricular response (RVR) October 2016 recurrent pleural effusion, hypocalcemia with multiple myeloma, follows with Dr. Adkins and Dr. Leslie Anderson, anemia secondary to multiple myeloma, hypertension, hypothyroidism, dementia, kidney dysfunction, history of urinary tract infection (UTI), reflux, hysterectomy, bilateral cataract surgery. Has been on Lovenox. Seen on 11/21/2016 with right lower extremity hematoma. On 12/08/2016, incision and drainage (I and D) and left open. The patient had persistent hematoma right lower extremity. Was found to have some drainage at the site. The patient was admitted for evaluation of right lower extremity hematoma, questionable wound infection. Chest CT shows extensive bilateral pulmonary emboli in the right and left main pulmonary arteries with extension into the bilateral lobes in October 2016. CURRENT ISSUES: 1. Extensive bilateral pulmonary emboli in right and left main pulmonary arteries. On chronic Lovenox with recurrent hematoma. The patient is currently off of anticoagulation due to active bleeding requiring hematoma surgical debridement. Will consult interventional radiology, Sheyla Carrillo MD, due to recurrent hematoma. Inferior vena cava (IVC) filter placement should be considered. 2. Right lower extremity necrosis, status post excisional debridement by general surgeon, Dr. Bedolla. Continue on intravenous (IV) vancomycin for now. 3. Chronic kidney disease stage III-IV, stable. Avoid nephrotoxins. Renally dose all medications. 4. Atrial fibrillation with rapid ventricular response, October 2016. On chronic Lovenox for pulmonary embolism (PE). Currently held due to active blood loss anemia from hematoma. 5. Acute blood loss anemia secondary to hematoma. The patient's Lovenox has been discontinued temporarily, status post surgical debridement, incision and drainage. 6. Hypertension, stable. 7. Hypothyroidism. Continue home medications. 8. Dementia, stable. 9. Multiple myeloma. Follows as outpatient with Dr. Leslie Anderson and Dr. Adkins. 10. Anemia secondary to multiple myeloma, chronic. 11. Acute blood loss. Might require blood transfusion. She has received one dose of leukocyte-reduced red blood cells yesterday. check h&h and transfuse for symptomatic anemia or hgb<8. CODE STATUS: DO NOT RESUSCITATE. MTDD
[2017-01-02 15:49] VITALS: BP 117/67
[2017-01-02 20:40] VITALS: BP 120/67
[2017-01-02 23:44] VITALS: BP 110/67
[2017-01-03] VITALS (12 sets, daily range): BP systolic 99–136; BP diastolic 57–89
[2017-01-03 05:40] LABS: ALBUMIN/GLOBULIN RATIO 0.71 (1.00-1.93); CALCIUM LEVEL 7.4 MG/DL (8.8-10.2); CREATININE FOR GFR 1.18 MG/DL (0.55-1.02); GLOMERULAR FILTRATION RATE 46.9 (>32); POTASSIUM SERUM 4.5 MEQ/L (3.5-5.1); TOTAL PROTEIN 4.8 GM/DL (6.4-8.2)
--- NOTE | 2017-01-03 05:55 | PHACANCOPD ---
PHARMACY VANCOMYCIN DOSING Pt Demographics Demographics Patient Age:81 , Weight:71.500 , Gender: female Adjusted Body Weight Vancomycin Vancomycin Target Ranges: 15-20 mcg/ml Vancomycin Load Y/N: No Load Dose Date Time Vancomycin Load Dose: Date: Time: Vancomycin Dose Date: 01/01/17. Primary Vancomycin Dose: [1GM IV in RR @ 18:00]: CURRENT DOSE: VANCO 1GM IV Q24H (start 01/02/17 06:00) Intermittent Dosing?: No Labs Creatinine Clearance Date:01/01/17. Creatinine Clearance: [35 ml/min]. Assessment and Plan Maintaining Current Dose?: Yes Reason for dose change: No Dose Change Pharmacist Note Pharmacist Note Date: 01/03/17. Pharmacist note:01/03 trough reported as 12.6:Will maintain Vancomycin 1 GM IV Q24H regimen d/t patient age/CRCL .these variables will result in a more agressive rate of accumulation-Will continue to monitor SCR and levels Date: 01/01/17. Pharm.D. note: 81YO FEMALE, 70KG in WEIGHT, 64" in HEIGHT, ADMITTED WITH LARGE OPEN WOUND RLE. SHE DID GO TO THE OR AND HAS RECEIVED A 1GM VANCO IV DOSE AT 18:00 IN THE RECOVERY ROOM. GIVEN IT IS TOO LATE FOR A LOADING DOSE, WE WILL CONTINUE WITH VANCO 1GM IV Q24H ORDERED STARTING AT 06:00 01/02/17 (12hrs following the first dose). A VANCO TR WILL BE ORDERED WHEN SHE IS AT STEADY STATE. ZOFIA, Pharm.D. [facility] Jan 03, 2017 05:55
[2017-01-03] MEDS: VANCOMYCIN HCL 1,000 MG, VIAL MATE ADAPTER 1 EACH in D5W 250 ML IV SCH (06:26)
[2017-01-03] MEDS ORDERED: SODIUM BICARBONATE 8.4% INJ 50MEQ 50 ML VIAL As Ordered ONE (07:55)
[2017-01-03] MEDS ORDERED: ISOVUE-300 61% 50ML VIAL (Q9967) As Ordered ONE (07:55)
[2017-01-03] MEDS ORDERED: LIDOCAINE 2% MDV 20 ML VIAL As Ordered ONE (07:55)
[2017-01-03] MEDS: OMEPRAZOLE 20 MG CAP PO SCH ×2 (09:34→22:20)
[2017-01-03] MEDS: ENOXAPARIN 80 MG/0.8 ML SYRINGE (J1650) SC SCH ×2 (09:34→22:20)
[2017-01-03] MEDS: POTASSIUM CHLORIDE 10 MEQ SR TABLET PO SCH ×2 (09:34→22:21)
[2017-01-03] MEDS: AMIODARONE 200 MG TAB (PACERONE) PO SCH (09:34)
[2017-01-03] MEDS: MIDODRINE 5 MG TAB PO SCH ×3 (09:35→17:02)
[2017-01-03] MEDS: NS 1,000 ML IV SCH (09:35)
--- NOTE | 2017-01-03 10:12 | IPN ---
DATE: 01/03/2017 This morning, she complains of feeling cold. She otherwise denies any chest pain, pressure or tightness, shortness of breath. She has some discomfort at the right lower extremity status post surgical debridement of necrotic tissue and hematoma. No other issues per nursing aside from tachycardia, ventricular rate of 105. Temperature 96.5, pulse 105, respiratory rate 18, blood pressure 123/76, 92% on room air. Generally, patient is awake, alert, oriented times three, answering questions appropriately. Lungs are diminished but clear to auscultation. No wheezing, rales, or rhonchi. No respiratory accessory muscle use. Heart: S1, S2. Sinus tachycardia. Abdomen: Soft, nontender, nondistended. Positive bowel sounds. Extremities: Multiple ecchymotic areas bilateral upper and lower extremities. Right lower extremity is bandaged. Distal pulses are noted. Skin is pink in color, warm to touch. LAB DATA: Hemoglobin 9, hematocrit 30. Sodium 146, potassium 4.5, chloride 114 , bicarbonate 24, BUN 18, creatinine 1.18, glucose 86, albumin 2. ASSESSMENT AND PLAN: This is an 81-year-old female with chronic kidney disease stage III-IV, atrial fibrillation (AFib) with rapid ventricular response (RVR) October 2016, recurrent pleural effusion, hypocalcemia with multiple myeloma, follows with Dr. Adkins and Dr. Leslie Anderson, anemia secondary to multiple myeloma, hypertension, hypothyroidism, dementia, kidney dysfunction, history of urinary tract infection (UTI), reflux, hysterectomy, bilateral cataract surgery. Has been on Lovenox for pulmonary emboli (PE), deep venous thrombosis (DVT). Has had recurrent hematomas. On 12/08, has incision and drainage and was left open. Had persistent hematoma right lower extremity with some drainage. She now presents with the following issues: 1. Right lower extremity hematoma with necrotic tissue status post surgical debridement by general surgeon Dr. Bedolla currently on IV vancomycin for now. Microbiology studies have not been sent. Will resume patient's Lovenox for her PE and DVT once IVC filter has been placed. Continue with tight dressing to lower extremity and elevate lower extremity. 2. History of bilateral pulmonary emboli and deep venous thrombosis on chronic Lovenox, held secondary to hematoma status post surgical debridement and evacuation of hematoma. Patient's hemoglobin and hematocrit has remained stable. She did receive 2 units of red blood cell transfusion after IVC filter has been placed. Per Dr. Carrillo, it would be fine to restart on Lovenox due to high risk of respiratory issues with bilateral pulmonary emboli. Pharmacy consulted for Lovenox dosing renally. 3. History of chronic kidney disease stage III-IV. 4. History of multiple myeloma. Follows with outpatient medical oncologist and Dr. Beck. Avoid nephrotoxins. Renally dose all medications. Monitor inputs and outputs. 5. Atrial fibrillation and rapid ventricular rate (RVR) in October currently slightly tachycardia. Patient is on amiodarone 200 daily. Continue to monitor for now. 6. Hypernatremia. Slight dehydration due to n.p.o. status. Resume oral intake. Encourage fluid intake for now. 7. Anemia secondary to blood loss from hematoma. Hemoglobin and hematocrit remains stable. Monitor for symptomatic anemia and transfuse if hemoglobin is less than 8 or symptomatic anemia. DISPOSITION: Patient is to be kept in progressive care unit (PCU) to monitor for worsening respiratory distress in light of bilateral pulmonary emboli and recent interruption of anticoagulation. MTDD
[2017-01-03] MEDS: FAMOTIDINE 20 MG TAB PO SCH (12:10)
--- NOTE | 2017-01-03 17:25 | REPKIM ---
PROCEDURE: Inferior venacavagram and placement of an IVC filter MEDICAL DIAGNOSIS/CLINICAL HISTORY: Pulmonary embolism, Bilateral lower extremity deep vein thrombosis and Right lower extremity hematoma/bleeding. The referring service has asked an IVC filter placement. INTERVENTIONALIST: Sheyla Carrillo MD MEDICATIONS: Local Lidocaine 2% CONTRAST: 15 mL, Isovue 300 EBL: less than 5 mL FLUORO TIME: 1.2 minute DEVICE USED: Cook Celect IVC filter Lot# [id number] Procedure: The risks, benefits, and alternatives of the use of a vena cava filter were discussed with the patients daughter, Ms Floresita Vergara, and informed phone consent was obtained and witnessed. The patient was brought to the interventional radiology suite where a timeout procedure was performed. The right neck was prepped and draped in a sterile fashion. After local anesthetic was established, the right internal jugular vein was punctured using a micropuncture needle under ultrasound guidance. A 7-Surinamese catheter was inserted into the lower IVC vein. Dilute contrast was injected, serial DSA images of the abdomen were obtained and the transverse diameter of the IVC was calculated. The distance from the lowest renal vein to the common iliac vein confluence was ascertained. The filter introducer system was then positioned in the infrarenal IVC over the guidewire. Under fluoroscopic guidance, the filter was inserted into the introducer, carefully positioned and successfully deployed. The introducer was removed and complete hemostasis was achieved with manual pressure. The patient tolerated the procedure well without immediate complication. This procedure was performed using ultrasound and fluoroscopy. FINDINGS: 1) The right IJ vein is patent and compressible. 2) The IVC is normal in course with no evidence of clot. There are two renal veins on the left, a normal variant anatomy. 3) Successful placement of IVC filter in a satisfactory position and configuration. IMPRESSION: Successful IVC filter placement as discussed above. The Celect IVC filter can stay permanently or can be retrievable. Once the need for caval filter ration has passed, please contact interventional radiology, for filter retrieval if clinically desired. Dr. Carrillo was present for this procedure as documented in the progress notes. cc: Keila Lawson MD [facility]ITAL[facility]
--- NOTE | 2017-01-03 18:54 | EDDOCDS ---
Physician Documentation [facility] Name: Ruthann Vergara Age: 81 yrs Sex: Female : 1935 Arrival Date: 01/01/2017 Time: 12:01 Bed 14 Private MD: Behzad Quiles FPA Disposition: 01/01/17 13:59 Hospitalization ordered by Dallas Saha for Inpatient Admission. Preliminary diagnosis are Anemia in chronic diseases classified elsewhere, Localized swelling, mass and lump, right lower limb - large open wound.. - Bed requested for PCU. - Status is Inpatient Admission. ead - Condition is Stable. - Problem is chronic. - Symptoms are unchanged. Historical: - Allergies: No known drug Allergies; - Home Meds: 1. Keflex 500 mg Oral cap three times a day 2. Silvadene 1 % Topical crea 2 times per day 3. atorvastatin 10 mg oral tab 1 tab once daily 4. aspirin 81 mg Oral tab 1 tab once daily 5. famotidine 20 mg Oral tab at noon 6. gabapentin 100 mg Oral cap 100 mg 3 times per day 7. midodrine 10 mg oral tab 1 tab 3 times per day 8. Vitamin B-12 1,000 mcg oral TbER 1,000 mcg daily 9. omeprazole 20 mg Oral TbEC 1 cap 2 times per day 10. potassium chloride 10 mEq Oral TbER 1 tab 2 times per day 11. Vitamin D Oral 1000 unit daily 12. memantine 10 mg oral tab 1 tab 2 times per day 13. donepezil 10 mg oral tab 1 tab twice a day 14. Claritin 10 mg Oral tab 1 tab once daily 15. Lovenox 60 mg/0.6 mL subcutaneous syrg every 12 hours 16. Decadron saturday Oral 20 mg weekly 17. prochlorperazine maleate 5 mg oral tab 1 tab as needed 18. beleade injections every saturday chemotherapy has been on hold - PMHx: dementia/alzheimer; Hypertension; hypotension; kidney failure; Multiple Myeloma; - PSHx: Hysterectomy; Cataract Surgery- Bilateral; - Social history: Smoking status: Patient states was never smoker of tobacco. No barriers to communication noted, The patient speaks fluent Ivorian, Speaks appropriately for age. - Family history: Not pertinent. - : The pt / caregiver states he / she is on anticoagulants: Lovenox. Home medication list is obtained from family members. - Exposure Risk Screening:: None identified. Vital Signs: 01/01 12:04 BP 109 / 65; Pulse 102; Resp 20; Pulse Ox 98% ; Weight 65.77 kg / 145 lbs; Height 5 ft. elp 4 in. (162.56 cm); 12:26 Temp 97.3(TE); Pain 0/10; dem1 14:20 BP 118 / 67; Pulse 73; Resp 18; Pulse Ox 94% ; ead 16:18 BP 117 / 70; Pulse 96; Resp 18; Temp 97.0(TE); Pulse Ox 96% on R/A; ead 16:19 BP 115 / 68 (auto/); ead 16:20 Pulse 94 MON; Pulse Ox 93% ; ead 16:34 BP 115 / 64 (auto/); ead 16:35 Pulse 96 MON; Pulse Ox 96% ; ead 16:48 Pulse 96 MON; Pulse Ox 95% ; ead 16:49 BP 118 / 66 (auto/); Resp 18; Temp 96.7(TE); ead 17:04 BP 112 / 65 (auto/); ead 17:05 Pulse 88 MON; Resp 18; Pulse Ox 96% on R/A; ead 17:19 BP 115 / 71 (auto/); ead 17:20 Pulse 92 MON; Resp 18; Pulse Ox 96% on R/A; ead 12:04 Body Mass Index 24.89 (65.77 kg, 162.56 cm) elp MDM: 12:25 Undress patient appropriately for examination ordered. cc10 12:25 Wound Care ordered. cc10 12:28 IV Saline Lock ordered. cc10 12:29 BED REQUEST+ADM ordered. EDMS 12:30 CBC with Diff Ordered. EDMS 12:30 BMP Ordered. EDMS 12:30 CRP Ordered. EDMS 12:30 ESR Ordered. EDMS 12:30 Pt & Aptt Ordered. EDMS 12:43 Financial registration complete. mm15 12:47 [facility] Payment Agreement was scanned into [employer] and attached to record. mm15 13:43 CT Tib/Fib Without Contrast Ordered. EDMS 13:43 Type and Cross, Packed Cells Ordered. EDMS 13:44 TYPE & SCREEN Ordered. EDMS 13:54 CBC with Diff Reviewed. cc10 13:54 BMP Reviewed. cc10 13:54 CRP Reviewed. cc10 13:54 ESR Reviewed. cc10 13:54 Pt & Aptt Reviewed. cc10 14:00 Transfuse PRBC's 1 unit, ensure PRBCs ordered in lab ordered. cc10 15:01 Admission / Observation Status ordered. EDMS 15:52 NPO DIET ordered. EDMS 15:53 COMPLETE BLOOD COUNT Ordered. EDMS 15:53 COMPLETE BLOOD COUNT Ordered. EDMS 19:00 REGULAR DIET ordered. EDMS 19:00 PATHOLOGY REQUEST FOR SERVICE Ordered. EDMS 19:31 COMPLETE BLOOD COUNT Ordered. EDMS 19:31 COMPLETE BLOOD COUNT Ordered. EDMS 19:32 COMPLETE BLOOD COUNT Ordered. EDMS 19:32 COMPLETE BLOOD COUNT Ordered. EDMS 19:32 COMPLETE COMPHRENSIVE METABOLI Ordered. EDMS 21:04 COMPLETE BLOOD COUNT Ordered. EDMS 21:05 COMPLETE BLOOD COUNT Ordered. EDMS 21:05 COMPLETE BLOOD COUNT Ordered. EDMS 21:05 COMPLETE BLOOD COUNT Ordered. EDNH 01/02 13:41 T-Sheet-- Draft Copy was scanned into [employer] and attached to record. gb 13:41 Radiology Report was scanned into [employer] and attached to record. gb Signatures: Dispatcher [employer] Tania Cole RN RN Eleanor Hyatt, Reg Reg Cassi Pierson RN RN hs1 Rene Rivera mm15 Ching Rawls RN RN ead [place], Colin PAAnn PAAnn cc10 The chart was reviewed and I authenticate all verbal orders and agree with the evaluation and treatment provided.Corrections: (The following items were deleted from the chart) 01/01 14:00 13:42 Transfuse FFP 1 unit, ensure FFP ordered in lab ordered. cc10 cc10 Attachments: 12:47 [facility] Payment Agreement mm15 01/02 13:41 T-Sheet-- Draft Copy gb Chart Complete MTDD
--- NOTE | 2017-01-03 18:54 | EDDOCDS ---
Physician Documentation [facility] Name: Ruthann Vergara Age: 81 yrs Sex: Female : 1935 Arrival Date: 01/01/2017 Time: 12:01 Bed 14 Private MD: Behzad Quiles FPA Disposition: 01/01/17 13:59 Hospitalization ordered by Dallas Saha for Inpatient Admission. Preliminary diagnosis are Anemia in chronic diseases classified elsewhere, Localized swelling, mass and lump, right lower limb - large open wound.. - Bed requested for PCU. - Status is Inpatient Admission. ead - Condition is Stable. - Problem is chronic. - Symptoms are unchanged. Historical: - Allergies: No known drug Allergies; - Home Meds: 1. Keflex 500 mg Oral cap three times a day 2. Silvadene 1 % Topical crea 2 times per day 3. atorvastatin 10 mg oral tab 1 tab once daily 4. aspirin 81 mg Oral tab 1 tab once daily 5. famotidine 20 mg Oral tab at noon 6. gabapentin 100 mg Oral cap 100 mg 3 times per day 7. midodrine 10 mg oral tab 1 tab 3 times per day 8. Vitamin B-12 1,000 mcg oral TbER 1,000 mcg daily 9. omeprazole 20 mg Oral TbEC 1 cap 2 times per day 10. potassium chloride 10 mEq Oral TbER 1 tab 2 times per day 11. Vitamin D Oral 1000 unit daily 12. memantine 10 mg oral tab 1 tab 2 times per day 13. donepezil 10 mg oral tab 1 tab twice a day 14. Claritin 10 mg Oral tab 1 tab once daily 15. Lovenox 60 mg/0.6 mL subcutaneous syrg every 12 hours 16. Decadron saturday Oral 20 mg weekly 17. prochlorperazine maleate 5 mg oral tab 1 tab as needed 18. beleade injections every saturday chemotherapy has been on hold - PMHx: dementia/alzheimer; Hypertension; hypotension; kidney failure; Multiple Myeloma; - PSHx: Hysterectomy; Cataract Surgery- Bilateral; - Social history: Smoking status: Patient states was never smoker of tobacco. No barriers to communication noted, The patient speaks fluent [place]ese, Speaks appropriately for age. - Family history: Not pertinent. - : The pt / caregiver states he / she is on anticoagulants: Lovenox. Home medication list is obtained from family members. - Exposure Risk Screening:: None identified. Vital Signs: 01/01 12:04 BP 109 / 65; Pulse 102; Resp 20; Pulse Ox 98% ; Weight 65.77 kg / 145 lbs; Height 5 ft. elp 4 in. (162.56 cm); 12:26 Temp 97.3(TE); Pain 0/10; dem1 14:20 BP 118 / 67; Pulse 73; Resp 18; Pulse Ox 94% ; ead 16:18 BP 117 / 70; Pulse 96; Resp 18; Temp 97.0(TE); Pulse Ox 96% on R/A; ead 16:19 BP 115 / 68 (auto/); ead 16:20 Pulse 94 MON; Pulse Ox 93% ; ead 16:34 BP 115 / 64 (auto/); ead 16:35 Pulse 96 MON; Pulse Ox 96% ; ead 16:48 Pulse 96 MON; Pulse Ox 95% ; ead 16:49 BP 118 / 66 (auto/); Resp 18; Temp 96.7(TE); ead 17:04 BP 112 / 65 (auto/); ead 17:05 Pulse 88 MON; Resp 18; Pulse Ox 96% on R/A; ead 17:19 BP 115 / 71 (auto/); ead 17:20 Pulse 92 MON; Resp 18; Pulse Ox 96% on R/A; ead 12:04 Body Mass Index 24.89 (65.77 kg, 162.56 cm) elp MDM: 12:25 Undress patient appropriately for examination ordered. cc10 12:25 Wound Care ordered. cc10 12:28 IV Saline Lock ordered. cc10 12:29 BED REQUEST+ADM ordered. EDMS 12:30 CBC with Diff Ordered. EDMS 12:30 BMP Ordered. EDMS 12:30 CRP Ordered. EDMS 12:30 ESR Ordered. EDMS 12:30 Pt & Aptt Ordered. EDMS 12:43 Financial registration complete. mm15 12:47 [facility] Payment Agreement was scanned into [employer] and attached to record. mm15 13:43 CT Tib/Fib Without Contrast Ordered. EDMS 13:43 Type and Cross, Packed Cells Ordered. EDMS 13:44 TYPE & SCREEN Ordered. EDMS 13:54 CBC with Diff Reviewed. cc10 13:54 BMP Reviewed. cc10 13:54 CRP Reviewed. cc10 13:54 ESR Reviewed. cc10 13:54 Pt & Aptt Reviewed. cc10 14:00 Transfuse PRBC's 1 unit, ensure PRBCs ordered in lab ordered. cc10 15:01 Admission / Observation Status ordered. EDMS 15:52 NPO DIET ordered. EDMS 15:53 COMPLETE BLOOD COUNT Ordered. EDMS 15:53 COMPLETE BLOOD COUNT Ordered. EDMS 19:00 REGULAR DIET ordered. EDMS 19:00 PATHOLOGY REQUEST FOR SERVICE Ordered. EDMS 19:31 COMPLETE BLOOD COUNT Ordered. EDMS 19:31 COMPLETE BLOOD COUNT Ordered. EDMS 19:32 COMPLETE BLOOD COUNT Ordered. EDMS 19:32 COMPLETE BLOOD COUNT Ordered. EDMS 19:32 COMPLETE COMPHRENSIVE METABOLI Ordered. EDMS 21:04 COMPLETE BLOOD COUNT Ordered. EDMS 21:05 COMPLETE BLOOD COUNT Ordered. EDMS 21:05 COMPLETE BLOOD COUNT Ordered. EDMS 21:05 COMPLETE BLOOD COUNT Ordered. EDVT 01/02 13:41 T-Sheet-- Draft Copy was scanned into [employer] and attached to record. gb 13:41 Radiology Report was scanned into [employer] and attached to record. gb Signatures: Dispatcher [employer] Tania Cole RN RN Eleanor Hyatt, Reg Reg Cassi Pierson RN RN hs1 Rene Rivera mm15 Ching Rawls RN RN ead [place], Colin PAAnn PAAnn cc10 The chart was reviewed and I authenticate all verbal orders and agree with the evaluation and treatment provided.Corrections: (The following items were deleted from the chart) 01/01 14:00 13:42 Transfuse FFP 1 unit, ensure FFP ordered in lab ordered. cc10 cc10 Attachments: 12:47 [facility] Payment Agreement mm15 01/02 13:41 T-Sheet-- Draft Copy gb Chart Complete MTDD
--- NOTE | 2017-01-03 18:54 | EDDOCDS ---
Nurse's Notes [facility] Name: Ruthann Vergara Age: 81 yrs Sex: Female : 1935 Arrival Date: 01/01/2017 Time: 12:01 Bed 14 Private MD: Behzad Quiles FPA Diagnosis: Anemia in chronic diseases classified elsewhere;Localized swelling, mass and lump, right lower limb-large open wound. Presentation: 01/01 12:06 Presenting complaint: Patient states: was seen here for hematoma on right leg (calf hs1 area) and it was evacuated here and left open. Patient was here December 08 per family. Patient and family concerned over not healing and continuation of blood thinners. Adult Sepsis Screening: The patient does not have new or worsening altered mentation. Patient's respiratory rate is less than 22. Systolic blood pressure is greater than 100. Patient has a qSOFA score of 0- Negative Sepsis Screen. Suicide/Homicide risk assessment- the patient denies having any suicidal and/or homicidal ideations and does not present with any other emotional, behavioral or mental health complaints. Status: Patient is not a service or work dispatcher or dependent. Transition of care: patient was not received from another setting of care. 12:06 Acuity: KELSIE Level 4 hs1 12:06 Method Of Arrival: Wheelchair hs1 Triage Assessment: 12:16 General: Appears in no apparent distress, Behavior is cooperative, pleasant. Pain: hs1 Denies pain. Neurological: Level of Consciousness is awake, alert, confused, pleasantly confused. Patient has hx of dementia and family states at baseline. . Respiratory: No deficits noted. Airway is patent Respiratory effort is even, unlabored. Historical: - Allergies: No known drug Allergies; - Home Meds: 1. Keflex 500 mg Oral cap three times a day 2. Silvadene 1 % Topical crea 2 times per day 3. atorvastatin 10 mg oral tab 1 tab once daily 4. aspirin 81 mg Oral tab 1 tab once daily 5. famotidine 20 mg Oral tab at noon 6. gabapentin 100 mg Oral cap 100 mg 3 times per day 7. midodrine 10 mg oral tab 1 tab 3 times per day 8. Vitamin B-12 1,000 mcg oral TbER 1,000 mcg daily 9. omeprazole 20 mg Oral TbEC 1 cap 2 times per day 10. potassium chloride 10 mEq Oral TbER 1 tab 2 times per day 11. Vitamin D Oral 1000 unit daily 12. memantine 10 mg oral tab 1 tab 2 times per day 13. donepezil 10 mg oral tab 1 tab twice a day 14. Claritin 10 mg Oral tab 1 tab once daily 15. Lovenox 60 mg/0.6 mL subcutaneous syrg every 12 hours 16. Decadron saturday Oral 20 mg weekly 17. prochlorperazine maleate 5 mg oral tab 1 tab as needed 18. beleade injections every saturday chemotherapy has been on hold - PMHx: dementia/alzheimer; Hypertension; hypotension; kidney failure; Multiple Myeloma; - PSHx: Hysterectomy; Cataract Surgery- Bilateral; - Social history: Smoking status: Patient states was never smoker of tobacco. No barriers to communication noted, The patient speaks fluent [place], Speaks appropriately for age. - Family history: Not pertinent. - : The pt / caregiver states he / she is on anticoagulants: Lovenox. Home medication list is obtained from family members. - Exposure Risk Screening:: None identified. Screenin:53 Screening information is obtained from the patient. Fall risk: At risk due to mcp immobility, The following interventions are performed due to a positive Fall Risk Screen: Fall Risk is added to Special Handling on the patient Summary Screen. A Fall Risk Bracelet was applied to the patient. Side Rails are placed in the up position. A Call Alvarado is given with instruction to call for help when getting out of bed. Fall Alert bracelet is placed on the patient. Assistance ADL's: Requires assistance with meal preparation, this assistance is provided by Home Health Aides, bathing, assistance is provided by Home Health Aides, dressing, assistance is provided by Home Health Aides, toileting, assistance is provided by Home Health Aides, housework, assistance is provided by Home Health Aides, medication administration, assistance is provided by family members. Abuse/DV Screen: The patient / caregiver reports he/she is: not in a situation that causes fear, pain or injury. Nutritional screening: No deficits noted. Advance Directives: Currently, there is a health care proxy, Floresita Vergara. There is an active DNR order but there is no copy available at this time. There is no living will. home support is adequate. Assessment: 12:55 General: Appears in no apparent distress, Behavior is cooperative. Neurological: No mcp deficits noted. Respiratory: Airway is patent Respiratory effort is even, unlabored. Derm: Skin is pink, warm & dry. large open area noted on right lower extremity--dressing removed--large amounts of silvadene noted on wound. 14:19 General: Appears in no apparent distress, Behavior is cooperative. Neurological: No mcp deficits noted. Respiratory: Airway is patent Respiratory effort is even, unlabored. Derm: Skin is pink, warm & dry. 15:30 General: Appears in no apparent distress, Behavior is cooperative. Cardiovascular: ead Rhythm is atrial fibrillation. Respiratory: Airway is patent Respiratory effort is even, unlabored. Derm: Skin is pink, warm & dry. 15:58 General: Verbal consent over phone for blood transfusion by Floresita Vergara, PRINCESS. ead Witnessed by Dr. Saha, this nurse, and Tania Talley, RN. Verbal consent for MOLST form received by Floresita Vergara, HCP for DNR/DNI. . 16:02 General: Dr. Bedolla and Dr. Saha at bedside to see pt for admission. . ead 16:18 General: transfusion of 1 unit PRBC's began infusing. see transfusion records for ead further details. 17:11 General: Appears in no apparent distress, comfortable, Behavior is appropriate for age, ead cooperative. Neurological: Level of Consciousness is awake, alert, obeys commands, Oriented to person, place, time. Respiratory: Airway is patent Respiratory effort is even, unlabored. Derm: Skin is pink, warm & dry. 17:30 General: pt taken to OR with 1st unit PRBC's infusing. . ead Vital Signs: 12:04 BP 109 / 65; Pulse 102; Resp 20; Pulse Ox 98% ; Weight 65.77 kg; Height 5 ft. 4 in. elp (162.56 cm); 12:26 Temp 97.3(TE); Pain 0/10; dem1 14:20 BP 118 / 67; Pulse 73; Resp 18; Pulse Ox 94% ; ead 16:18 BP 117 / 70; Pulse 96; Resp 18; Temp 97.0(TE); Pulse Ox 96% on R/A; ead 16:19 BP 115 / 68 (auto/); ead 16:20 Pulse 94 MON; Pulse Ox 93% ; ead 16:34 BP 115 / 64 (auto/); ead 16:35 Pulse 96 MON; Pulse Ox 96% ; ead 16:48 Pulse 96 MON; Pulse Ox 95% ; ead 16:49 BP 118 / 66 (auto/); Resp 18; Temp 96.7(TE); ead 17:04 BP 112 / 65 (auto/); ead 17:05 Pulse 88 MON; Resp 18; Pulse Ox 96% on R/A; ead 17:19 BP 115 / 71 (auto/); ead 17:20 Pulse 92 MON; Resp 18; Pulse Ox 96% on R/A; ead 12:04 Body Mass Index 24.89 (65.77 kg, 162.56 cm) [facility] Vitals: 12:04 Log In Time: January 01, 2017 at 12:02. [facility] ED Course: 12:03 Patient visited by Vianca Negro PCA. elp 12:03 Behzad Quiles is Private Physician. elp 12:03 Patient moved to Waiting elp 12:04 Patient visited by Vianca Negro PCA. elp 12:04 Patient moved to Pre RCE elp 12:08 Triage Initiated hs1 12:12 Patient moved to Triage 1 dem1 12:18 Bubba Cerda PA-C is [facility]. cc10 12:18 Vanesa Pandey MD is Attending Physician. cc10 12:19 Patient visited by Bubba Cerda PA-C. cc10 12:19 Patient visited by Bubba Cerda PA-C. cc10 12:27 Patient visited by Harpreet Griffin. dem1 12:28 Patient moved to I7 dem1 12:47 [facility] Payment Agreement was scanned into [employer] and attached to record. mm15 12:52 Pt & Aptt Sent. mcp 12:52 ESR Sent. mcp 12:52 CRP Sent. mcp 12:52 BMP Sent. mcp 12:52 CBC with Diff Sent. mcp 12:53 The patient / caregiver is instructed regarding the plan of care and ED course. Patient mcp has correct armband on for positive identification. Placed in gown. Bed in low position. Call light in reach. Side rails up X2. Adult w/ patient. 12:53 Inserted saline lock: 20 gauge in left antecubital area and blood collected. The [facility] patient tolerated the procedure well. Labs drawn. (by ED staff). Sent per order to lab. 12:57 Patient visited by Diane Bravo RN. [facility] 13:58 Dallas Saha is Hospitalizing Provider. cc10 14:13 Ching Rawls,DOREEN is Primary Nurse. ck1 14:13 Patient moved to 14 ck1 14:19 Inserted saline lock: 20 gauge in right antecubital area and blood collected. The [facility] patient tolerated the procedure well. Labs drawn. (by ED staff). Sent per order to lab. 14:20 Patient visited by Diane Bravo RN. [facility] 14:20 casing man on. Pulse ox on. NIBP on. ead 15:36 CT Tib/Fib Without Contrast Returned. EDMS 16:18 Blood products: PRBCs X 1 unit given. See transfusion record. ead 17:11 No procedures done that require assistance. ead 01/02 13:41 T-Sheet-- Draft Copy was scanned into [employer] and attached to record. gb 13:41 Radiology Report was scanned into [employer] and attached to record. gb Order Results: Lab Order: CBC with Diff; SPEC'M 01/01/17 12:47 Test: WHITE BLOOD COUNT; Value: 3.9; Range: 4.0-10.0; Abnormal: Below low normal; Units: K/mm3; Status: F Test: RED BLOOD COUNT; Value: 2.76; Range: 4.00-5.40; Abnormal: Below low normal; Units: M/mm3; Status: F Test: HEMOGLOBIN; Value: 7.7; Range: 12.0-16.0; Abnormal: Below low normal; Units: g/dl; Status: F Test: HEMATOCRIT; Value: 27.0; Range: 36.0-47.0; Abnormal: Below low normal; Units: %; Status: F Test: MEAN CORPUSCULAR VOLUME; Value: 97.5; Range: 80.0-96.0; Abnormal: Above high normal; Units: fl; Status: F Test: MEAN CORPUSCULAR HEMOGLOBIN; Value: 28.0; Range: 27.0-33.0; Units: pg; Status: F Test: MEAN CORPUSCULAR HGB CONC; Value: 28.7; Range: 32.0-36.5; Abnormal: Below low normal; Units: g/dl; Status: F Test: RED CELL DISTRIBUTION WIDTH; Value: 15.0; Range: 11.5-14.5; Abnormal: Above high normal; Units: %; Status: F Test: PLATELET COUNT, AUTOMATED; Value: 296; Range: 150-450; Units: k/mm3; Status: F Test: NEUTROPHILS %; Value: 72.5; Range: 36.0-66.0; Abnormal: Above high normal; Units: %; Status: F Test: LYMPH %; Value: 19.5; Range: 24.0-44.0; Abnormal: Below low normal; Units: %; Status: F Test: MONO %; Value: 5.5; Range: 0.0-5.0; Abnormal: Above high normal; Units: %; Status: F Test: EOS %; Value: 1.0; Range: 0.0-3.0; Units: %; Status: F Test: BASO %; Value: 0.2; Range: 0.0-1.0; Units: %; Status: F Test: LARGE UNSTAINED CELL %; Value: 1.2; Range: 0.0-4.0; Units: %; Status: F Test: NEUTROPHILS #; Value: 2.8; Range: 1.8-7.7; Units: K/mm3; Status: F Test: LYMPH #; Value: 0.8; Range: 1.5-4.5; Abnormal: Below low normal; Units: K/mm3; Status: F Test: MONO #; Value: 0.2; Range: 0.0-0.8; Units: K/mm3; Status: F Test: EOS #; Value: 0.0; Range: 0.0-0.50; Units: K/mm3; Status: F Test: BASO #; Value: 0.0; Range: 0.0-0.2; Units: K/mm3; Status: F Test: LARGE UNSTAINED CELL #; Value: 0.1; Range: 0.0-0.4; Units: K/mm3; Status: F Lab Order: [facility]; [facility] 01/01/17 12:47 Test: GLUCOSE, FASTING; Value: 91; Range: 83-110; Units: MG/DL; Status: F Test: BLOOD UREA NITROGEN; Value: 20; Range: 7-18; Abnormal: Above high normal; Units: MG/DL; Status: F Test: CREATININE FOR GFR; Value: 1.21; Range: 0.55-1.02; Abnormal: Above high normal; Units: MG/DL; Status: F Test: GLOMERULAR FILTRATION RATE; Value: 45.6; Range: >32; Status: F Test: SODIUM LEVEL; Value: 144; Range: 136-145; Units: MEQ/L; Status: F Test: POTASSIUM SERUM; Value: 4.7; Range: 3.5-5.1; Units: MEQ/L; Status: F Test: CHLORIDE LEVEL; Value: 111; Range: 98-107; Abnormal: Above high normal; Units: MEQ/L; Status: F Test: CARBON DIOXIDE LEVEL; Value: 22; Range: 21-32; Units: MEQ/L; Status: F Test: ANION GAP; Value: 11; Range: 8-16; Units: MEQ/L; Status: F Test: CALCIUM LEVEL; Value: 7.5; Range: 8.8-10.2; Abnormal: Below low normal; Units: MG/DL; Status: F Test Note: ; Units are mL/min/1.73 m2 Chronic Kidney Disease Staging per NKF: Stage I & II GFR >=60 Normal to Mildly Decreased Stage III GFR 30-59 Moderately Decreased Stage IV GFR 15-29 Severely Decreased Stage V GFR <15 Very Little GFR Left ESRD GFR <15 on EXPENDITURE REQUISITION CLERK Lab Order: CRP; SPEC' 01/01/17 12:47 Test: C REACTIVE PROTEIN QUANTITATIV; Value: 0.37; Range: 0.00-0.30; Abnormal: Above high normal; Units: MG/DL; Status: F Lab Order: ESR; [facility] 01/01/17 12:47 Test: ERYTHROCYTE SEDIMENTATION RATE; Value: 70; Range: 0-30; Abnormal: Above high normal; Units: mm/hr; Status: F Lab Order: Pt & Aptt; [facility] 01/01/17 12:47 Test: PROTHROMBIN TIME; Value: 14.0; Range: 12.3-14.5; Units: SECONDS; Status: F Test: INR; Value: 1.07; Status: F Test: PARTIAL THROMBOPLASTIN TIME; Value: 37.7; Range: 26.6-37.1; Abnormal: Above high normal; Units: SECONDS; Status: F Test Note: ; THERAPUTIC HUMAN INR VALUES INDICATIONS NORMAL RANGES PROPHYLAXIS/TREATMENT OF: VENOUS THROMBOSIS 2.0-3.0 PULMONARY EMBOLISM 2.0-3.0 PREVENTION OF SYSTEMIC EMBOLISM FROM: TISSUE HEART VALVES 2.0-3.0 ACUTE MYOCARDIAL INFARCTION 2.0-3.0 VALVULAR HEART DISEASE 2.0-3.0 ATRIAL FIBRILLATION 2.0-3.0 MECHANICAL VALVES(HIGH RISK) 2.5-3.5 RECURRENT MYOCARDIAL INFARCTION 2.5-3.5 Lab Order: TYPE & SCREEN; [facility] 01/01/17 14:06 Test: BLOOD TYPE; Value: O POS; Status: F Test: AB SCREEN (INDIRECT FRANC)VIS; Value: NEGATIVE; Status: F Test: IMMEDIATE SPIN CROSSMATCH; Value: [id number] O POSITIVE Compatible? Y; Status: F Lab Order: COMPLETE BLOOD COUNT; [facility] 01/01/17 19:46 Test: WHITE BLOOD COUNT; Value: 3.4; Range: 4.0-10.0; Abnormal: Below low normal; Units: K/mm3; Status: F Test: RED BLOOD COUNT; Value: 2.77; Range: 4.00-5.40; Abnormal: Below low normal; Units: M/mm3; Status: F Test: HEMOGLOBIN; Value: 7.8; Range: 12.0-16.0; Abnormal: Below low normal; Units: g/dl; Status: F Test: HEMATOCRIT; Value: 26.6; Range: 36.0-47.0; Abnormal: Below low normal; Units: %; Status: F Test: MEAN CORPUSCULAR VOLUME; Value: 96.2; Range: 80.0-96.0; Abnormal: Above high normal; Units: fl; Status: F Test: MEAN CORPUSCULAR HEMOGLOBIN; Value: 28.3; Range: 27.0-33.0; Units: pg; Status: F Test: MEAN CORPUSCULAR HGB CONC; Value: 29.4; Range: 32.0-36.5; Abnormal: Below low normal; Units: g/dl; Status: F Test: RED CELL DISTRIBUTION WIDTH; Value: 14.9; Range: 11.5-14.5; Abnormal: Above high normal; Units: %; Status: F Test: PLATELET COUNT, AUTOMATED; Value: 206; Range: 150-450; Units: k/mm3; Status: F Radiology Order: CT Tib/Fib Without Contrast Test: CT Tib/Fib Without Contrast REASON FOR EXAMINATION: large wound; CT study of the right calf without IV contrast:; ; History: Large wound. History of hematoma evacuated. Comparison radiographs; are from December 08, 2016.; ; Findings: Cortical and medullary bone density are normal. No fracture is seen.; There is some vascular calcification in the calf soft tissues. No opaque foreign; body is seen.; ; There is a large superficial subdermal soft tissue hematoma in the lateral aspect; of the distal calf soft tissues similar to the to the radiographic appearance; from December 08, 2016. The hematoma appears to be a little more extensive than; on that radiographic series. It measures 9.1 cm in anterior to posterior; dimension by 4.0 cm in medial to lateral span by 19 cm in craniocaudal span.; Along its inferior margin, there is a open wound in the overlying skin extending; into the distal edge of the hematoma. This airspace representing the open wound; measures 3.2 cm anterior to posterior by 1.7 cm medial to lateral by 4.4 cm; cranial to caudal. There is no visible abscess. No soft tissue gas is seen; other than in this open wound. There is some diffuse subcutaneous fat edema.; ; Impression:; ; Large subdermal lateral soft tissue hematoma. The distal end shows a open air; containing wound. No evidence of abscess or other soft tissue gas. The hematoma; appears a little larger than on the radiographs from December 08, 2016. No; fracture or opaque foreign body seen.; ; ; Signed by; Dre Carter MD 01/01/2017 04:19 P; Outcome: 01/01 13:59 Decision to Hospitalize by Provider. cc10 17:25 Discharge Assessment: Patient awake and alert. obeys commands, Oriented to person, ead place and time. patient administered narcotics - no. The following High Risk Discharge criteria are identified: None. Admitted to OR accompanied by nurse, accompanied by tech, family with patient, via stretcher, on monitor, with chart. Condition: stable. CT Study completed. Property given to family member, Braden (). 17:53 Patient left the ED. ead Signatures: Dispatcher [employer] EDDiane Herrera, RN RN Eleanor Carrera, Reg Reg Jackie Jones RN RN ck1 Cassi Pierson RN RN hs1 Harpreet Griffin dem1 Rene Rivera mm15 Vianca Negro, SOLAR SALES REPRESENTATIVE AND ASSESSOR SOLAR SALES REPRESENTATIVE AND ASSESSOR Ching VossRN RN Bubba Bowers, PA-C PA-C cc10 Chart Complete MTDD
[2017-01-04 00:44] VITALS: BP 121/63
[2017-01-04] MEDS: NS 1,000 ML IV SCH (01:47)
[2017-01-04] MEDS: VANCOMYCIN HCL 1,000 MG, VIAL MATE ADAPTER 1 EACH in D5W 250 ML IV SCH (05:19)
[2017-01-04 06:01] VITALS: BP 115/72
[2017-01-04 06:20] LABS: CALCIUM LEVEL 7.4 MG/DL (8.8-10.2); CREATININE FOR GFR 1.07 MG/DL (0.55-1.02); GLOMERULAR FILTRATION RATE 52.5 (>32); POTASSIUM SERUM 4.2 MEQ/L (3.5-5.1)
[2017-01-04 06:49] LABS: MEAN CORPUSCULAR HEMOGLOBIN 28.6 pg (27.0-33.0); MEAN CORPUSCULAR HGB CONC 30.4 g/dl (32.0-36.5); MEAN CORPUSCULAR VOLUME 93.9 fl (80.0-96.0); RED CELL DISTRIBUTION WIDTH 15.2 % (11.5-14.5)
[2017-01-04 07:20] VITALS: BP 111/75
[2017-01-04] MEDS: D5W 1,000 ML IV SCH ×2 (07:55→19:53)
[2017-01-04] MEDS: ENOXAPARIN 80 MG/0.8 ML SYRINGE (J1650) SC SCH ×2 (09:06→19:53)
[2017-01-04] MEDS: OMEPRAZOLE 20 MG CAP PO SCH ×2 (09:06→19:53)
[2017-01-04] MEDS: AMIODARONE 200 MG TAB (PACERONE) PO SCH (09:06)
[2017-01-04] MEDS: MIDODRINE 5 MG TAB PO SCH ×3 (09:07→17:03)
[2017-01-04] MEDS: POTASSIUM CHLORIDE 10 MEQ SR TABLET PO SCH ×2 (09:07→19:52)
[2017-01-04 12:00] VITALS: BP 131/76
[2017-01-04] MEDS: FAMOTIDINE 20 MG TAB PO SCH (12:22)
--- NOTE | 2017-01-04 13:27 | IPN ---
DATE: 01/04/2017 Patient seen and examined at the bedside. Chart has been reviewed. No issues overnight. Patient had an inferior vena cava (IVC) filter placed yesterday. Lovenox has been continued. No active sites of bleeding. Patient's right lower extremity has been elevated status post surgical debridement for necrotic tissue as well as evacuation of hematoma. She denies any increased bruising, bleeding, hematemesis, bright red blood per rectum, melanotic stools. Overnight, no other issues per nursing. Temperature 96.3, pulse 104, respiratory rate 20, blood pressure 111/75, 93% on room air. Generally awake, alert, oriented to person and place. Answers questions appropriately. Lungs diminished. Clear to auscultation. Heart: S1, S2. Sinus rhythm. Abdomen is soft, nontender, nondistended. Extremities: Right lower extremity is in a wound dressing. Patient's bilateral upper extremities have multiple ecchymotic areas. White cell count 4, hemoglobin 8.9, hematocrit 29, platelet count 210 Sodium 146, potassium 4.2, chloride 115, bicarbonate 20, BUN 17, creatinine 1, glucose of 91. ASSESSMENT AND PLAN: This is an 81-year-old female with history of chronic kidney disease stage III-IV, atrial fibrillation (AFib) with rapid ventricular response (RVR) October 2016, recurrent pleural effusion, hypocalcemia with multiple myeloma, follows with Dr. Adkins and Dr. Leslie Anderson, anemia secondary to multiple myeloma, hypertension, hypothyroidism, dementia, history of urinary tract infection (UTI), reflux, hysterectomy, bilateral cataract surgery, had been on Lovenox every 12 hours for pulmonary emboli (PE) and deep venous thrombosis (DVT), which were recurrent with subsequent recurrent hematomas. The first was on 12/08/2016 requiring incision and drainage and was left open. Persistent hematoma during this admission of the right lower extremity requiring drainage, surgical debridement of necrotic tissue and treatment with antibiotics. CURRENT ISSUES: 1. Right lower extremity hematoma with necrotic tissue status post surgical debridement by general surgeon, Dr. Bedolla. Currently on IV vancomycin. Patient's Lovenox has been resumed after an IVC filter has been placed. Continue with tight dressing to lower extremity and elevation of the lower extremity. Will continue to monitor patient's hemoglobin and hematocrit. 2. Acute blood loss anemia secondary to hematoma from Coumadin and coagulopathy. Remove the Coumadin and coagulopathy secondary to Lovenox. Patient's hemoglobin and hematocrit will be monitored. She has been transfused 2 units of leukocyte reduced red blood cells. Continue with full supportive care for now. 3. 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 Patient's hemoglobin and hematocrit will continually be monitored. She has already received 2 units of red blood cell transfusion previously. 3. History of chronic kidney disease stage III-IV, stable. Avoid nephrotoxins. Renally dose all medications. 4. History of multiple myeloma with chronic anemia and leukopenia and chronic kidney disease. Stable. 5. Atrial fibrillation with rapid ventricular rate in October. Currently on amiodarone and anticoagulation. 6. Hypernatremia. Slight dehydration. encourage oral intake, ivfluid trial. MTDD
[2017-01-04 22:00] VITALS: BP 140/83
[2017-01-04] MEDS: GABAPENTIN 100 MG CAP PO PRN (23:21)
[2017-01-04] MEDS: ACETAMINOPHEN TAB 650MG DOSE (2X325MG) PO PRN (23:21)
[2017-01-05] MEDS: VANCOMYCIN HCL 1,000 MG, VIAL MATE ADAPTER 1 EACH in D5W 250 ML IV SCH (05:28)
[2017-01-05 06:00] VITALS: BP 118/60
[2017-01-05 06:06] LABS: CALCIUM LEVEL 7.4 MG/DL (8.8-10.2); CREATININE FOR GFR 1.02 MG/DL (0.55-1.02); GLOMERULAR FILTRATION RATE 55.5 (>32); POTASSIUM SERUM 3.9 MEQ/L (3.5-5.1)
--- NOTE | 2017-01-05 08:30 | REPUSA ---
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 Technique: Axial CT scan images without contrast. Reformatted coronal and sagittal images. Diffuse subcutaneous soft tissue edema and fat stranding. Prominent superficial vessels are noted. Moderate osteopenia. Degenerative joint disease. Impression: Prominent vessels in the soft tissues of the lower extremity. This is suspicious for recurrent hemangioma/vascular malformation. Further evaluation is needed.
[2017-01-05] MEDS: LACTOBACILLUS ACIDOPHILUS CAP (BACID) PO SCH ×2 (09:34→16:58)
[2017-01-05] MEDS: OMEPRAZOLE 20 MG CAP PO SCH ×2 (09:35→20:33)
[2017-01-05] MEDS: MIDODRINE 5 MG TAB PO SCH ×3 (09:35→16:59)
[2017-01-05] MEDS: AMIODARONE 200 MG TAB (PACERONE) PO SCH (09:35)
[2017-01-05] MEDS: POTASSIUM CHLORIDE 10 MEQ SR TABLET PO SCH ×2 (09:35→20:33)
[2017-01-05] MEDS: ENOXAPARIN 80 MG/0.8 ML SYRINGE (J1650) SC SCH ×2 (09:35→20:34)
[2017-01-05 12:31] LABS: MEAN CORPUSCULAR HEMOGLOBIN 28.9 pg (27.0-33.0); MEAN CORPUSCULAR HGB CONC 30.3 g/dl (32.0-36.5); MEAN CORPUSCULAR VOLUME 95.5 fl (80.0-96.0); RED CELL DISTRIBUTION WIDTH 15.1 % (11.5-14.5); WHITE BLOOD COUNT 4.1 K/mm3 (4.0-10.0)
[2017-01-05] MEDS: FAMOTIDINE 20 MG TAB PO SCH (12:55)
[2017-01-05] MEDS ORDERED: FUROSEMIDE 20 MG/2 ML VIAL (J1940) IV ONE (13:45)
--- NOTE | 2017-01-05 14:08 | REP ---
CHEST X-RAY PA AND LATERAL: 01/05/2017. Comparison: Portable chest 11/17/2016, two-view chest 09/06/2016. Clinical history: Fever. There are bilateral pleural effusions right greater than left with bibasilar infiltrates or atelectasis. Effusions are much larger than on the October study. Heart is enlarged. The aorta is calcified at the arch. Airway is intact. There is some venous hypertension. No zulma edema. Bones demineralized with degenerative changes in the shoulders and AC joints. Impression: 1. Bilateral pleural effusions and bibasilar atelectasis and/or infiltrates, right greater than left for both. These show significant increase since the 11/17/2016 prior. There is vascular redistribution without zulma edema. Signed by Fco Siddiqui MD 01/05/2017 07:39 P
[2017-01-05] MEDS: ACETAMINOPHEN TAB 650MG DOSE (2X325MG) PO PRN (20:33)
[2017-01-05] MEDS: GABAPENTIN 100 MG CAP PO PRN (20:33)
[2017-01-05 22:00] VITALS: BP 117/64
--- NOTE | 2017-01-06 04:54 | IPN ---
DATE: 01/05/2017 Patient seen and examined at the bedside. Chart has been reviewed. Patient had a fever at 6 a.m. this morning; 101 temperature. She otherwise denies any cough, dysuria, urgency, or frequency, chills. Denies any chest pain, pressure, or tightness. States that she is weak, but unchanged from before. Temperature 101, current temperature 97.8, pulse 106, respiratory rate 18, blood pressure 118/60, 94% on two liters nasal cannula. Generally, awake, alert, oriented to person, pleasantly confused, answers questions appropriately, however. Lungs diminished breath sounds, but clear to auscultation. No wheezes, rales, or rhonchi. Heart: S1, S2, irregular, sinus tachycardia. Abdomen is soft, nontender, nondistended. Positive bowel sounds. Extremity is warm to touch. Patient has right lower extremity bandage with some edema increased from yesterday. Painful to touch. ASSESSMENT AND PLAN: This is an 81-year-old, DO NOT RESUSCITATE, female with history of multiple myeloma, chronic anemia, atrial fibrillation (AFib), history of bilateral pulmonary embolism (PE) and deep vein thrombosis (DVT) on chronic Lovenox, follows with Dr. Adkins and Dr. Leslie Anderson, hypertension, hypothyroidism, dementia, history of urinary tract infection (UTI), hysterectomy, bilateral cataract surgery, who has recurrent hematomas on Lovenox. On 12/08/2016, patient reported incision and drainage with wound left open of right lower extremity. She then presents for this admission with recurrent hematoma and necrotic tissue at the open wound site. She underwent surgical debridement and evacuation of hematoma done by general surgeon, Dr. Bedolla, has since been on antibiotics with vancomycin since admission due to recurrent hematoma. Patient did undergo inferior vena cava (IVC) filter placement and resumption of Lovenox once hemoglobin and hematocrit was deemed to be stable due to active bleeding with hematoma. Patient did receive two units of red blood cell transfusion with hemoglobin on presentation of 7.7 and peak hemoglobin of 10.1 with resumption of anticoagulation. Patient's hemoglobin had decreased to 8.8. She has also suffered from [id number] renal failure. Creatinine was 1.2. She was fluid hydrated. Current creatinine is normal at 1.02. IV fluids have since been discontinued. Patient's atrial fibrillation appears to have converted. She is currently in sinus rhythm with an episode of fever and became sinus tachycardic. CURRENT ISSUES: 1. History of bilateral pulmonary emboli and deep venous thrombosis status post IVC filter placement with ongoing edema of the right lower extremity concerning for recurrent hematoma. Due to recurrent hematoma, requiring two units of red blood cell transfusion. She has been restarted back on subcutaneous Lovenox with hemoglobin and hematocrit checks. Her Lovenox will be discontinued if hematoma is again noted. Defer to Dr. Johnson to let us know whether it requires further evacuation. 2. Recurrent hematoma. Due to increasing swelling of the right lower extremity, I have repeated a CT of the lower extremity to rule out ongoing bleeding. General surgeon, Dr. Johnosn has been made aware for re-examination to see whether the Lovenox should be discontinued. 3. Acute blood loss anemia secondary to hematoma from Lovenox being used for bilateral pulmonary embolism . Patient currently has a hemoglobin of 8.8. We will continue to check hemoglobin and hematocrit. If symptomatic anemia, we will transfuse for hemoglobin less than 8. She has previously been transfused two units of leukocyte reduced red blood cells. Continue with full supportive care for now. 3. History of multiple myeloma with chronic kidney disease, currently with normal creatinine. We have discontinued patient's IV fluids as her hypernatremia , dehydration has resolved. 4. History of chronic anemia, leukopenia, and chronic kidney disease due to multiple myeloma. Stable. 5. Atrial fibrillation. Currently sinus rhythm on amiodarone with sinus tachycardia due to fever. 6. Fever. Patient is currently on intravenous vancomycin due to open wound of the right lower extremity. No cultures were taken previously. We will check for other sources of fever. Defer to Dr. Johnson who is covering for Dr. Bedolla, to further evaluate the previous debridement site. At this time, patient is continued on intravenous vancomycin. We will check urinalysis (UA), urine culture and sensitivity, chest x-ray, and blood cultures. [facility]
[2017-01-06] MEDS: VANCOMYCIN HCL 1,000 MG, VIAL MATE ADAPTER 1 EACH in D5W 250 ML IV SCH (05:50)
[2017-01-06 05:56] LABS: CALCIUM LEVEL 7.4 MG/DL (8.8-10.2); CREATININE FOR GFR 1.04 MG/DL (0.55-1.02); GLOMERULAR FILTRATION RATE 54.3 (>32); POTASSIUM SERUM 4.3 MEQ/L (3.5-5.1)
[2017-01-06 06:00] VITALS: BP 103/55
--- NOTE | 2017-01-06 06:16 | PHACANCOPD ---
PHARMACY VANCOMYCIN DOSING Pt Demographics Demographics Patient Age:81 , Weight:74.500 , Gender: female Adjusted Body Weight Vancomycin Vancomycin Target Ranges: 15-20 mcg/ml Vancomycin Load Y/N: No Load Dose Date Time Vancomycin Load Dose: Date: Time: Vancomycin Dose Date: 01/01/17. Primary Vancomycin Dose: [1GM IV in RR @ 18:00]: CURRENT DOSE: VANCO 750mg IV Q24H@16(Begins 01/07) Intermittent Dosing?: No Labs Micro Microbiology 01/05/17 Blood Culture, Received Pending 01/05/17 Urine Culture, Received Pending Creatinine Clearance Date:01/01/17. Creatinine Clearance: [35 ml/min]. Assessment and Plan Maintaining Current Dose?: No Reason for dose change: Trough too high Pharmacist Note Pharmacist Note Date: 01/06/17. Pharmacist note:Vancomycin trough reported this am was 21.3 (up from 12.6 -3 days ago)-Will adjust dose to 750mg IV Q24H and will begin new regimen 01/07(`1 gm dose already hung today)No significant change in scr-will continue to follow SCR and levels Date: 01/03/17. Pharmacist note:01/03 trough reported as 12.6:Will maintain Vancomycin 1 GM IV Q24H regimen d/t patient age/CRCL .these variables will result in a more agressive rate of accumulation-Will continue to monitor SCR and levels Date: 01/01/17. Pharm.D. note: 81YO FEMALE, 70KG in WEIGHT, 64" in HEIGHT, ADMITTED WITH LARGE OPEN WOUND RLE. SHE DID GO TO THE OR AND HAS RECEIVED A 1GM VANCO IV DOSE AT 18:00 IN THE RECOVERY ROOM. GIVEN IT IS TOO LATE FOR A LOADING DOSE, WE WILL CONTINUE WITH VANCO 1GM IV Q24H ORDERED STARTING AT 06:00 01/02/17 (12hrs following the first dose). A VANCO TR WILL BE ORDERED WHEN SHE IS AT STEADY STATE. ZOFIA, Pharm.D. [facility] Jan 06, 2017 06:16
[2017-01-06] MEDS ORDERED: FUROSEMIDE 40 MG/4 ML VIAL (J1940) IV ONE (06:45)
[2017-01-06] MEDS: OMEPRAZOLE 20 MG CAP PO SCH ×2 (08:13→20:14)
[2017-01-06] MEDS: AMIODARONE 200 MG TAB (PACERONE) PO SCH (08:14)
[2017-01-06] MEDS: LACTOBACILLUS ACIDOPHILUS CAP (BACID) PO SCH ×2 (08:14→17:12)
[2017-01-06] MEDS: MIDODRINE 5 MG TAB PO SCH ×3 (08:14→17:12)
[2017-01-06] MEDS: POTASSIUM CHLORIDE 10 MEQ SR TABLET PO SCH ×2 (08:14→20:14)
[2017-01-06] MEDS: ENOXAPARIN 80 MG/0.8 ML SYRINGE (J1650) SC SCH ×2 (08:15→20:14)
[2017-01-06] MEDS: FAMOTIDINE 20 MG TAB PO SCH (12:23)
[2017-01-06 14:00] VITALS: BP 105/57
--- NOTE | 2017-01-06 18:40 | IPN ---
DATE: 01/06/2017 Patient seen and examined at the bedside. Chart has been reviewed. Patient has had a fever yesterday of 101 temperature. Chest xray was unremarkable. Urine was unremarkable for urinary tract infection (UTI) and blood cultures negative. Patient is continued on intravenous (IV) vancomycin for necrotic tissue that was debrided on the lower extremity on admission status post evacuation of blood clot. Patient denies any chest pain, pressure or tightness, shortness of breath, fatigue, or weakness. She has had increasing lower extremity edema and anasarca and was given IV Lasix yesterday with resultant output of 1.6 liters and net negative overnight. Current weight is still 75.1 kg. VITAL SIGNS: Temperature 97.2, maximum temperature (Tmax) of 101 yesterday at 6 a.m., pulse 100, respiratory rate 18, blood pressure 103/55, 95% on two liters nasal cannula. Generally, patient has multiple ecchymotic areas on the skin. She is awake, alert, oriented to person, appropriate with conversation, cooperative with exam. LUNGS: Diminished, but clear to auscultation. No wheezing, rales, or rhonchi. HEART: S1, S2, irregular, sinus tachycardia. ABDOMEN: Soft, nontender, nondistended. EXTREMITIES: Right lower extremity is bandaged, still with pitting edema. Laboratory data and imaging studies have been reviewed. Microbiology has been reviewed. ASSESSMENT AND PLAN: 81-year-old, DO NOT RESUSCITATE/DO NOT INTUBATE female with history of multiple myeloma, chronic anemia, atrial fibrillation, history of bilateral pulmonary embolism (PE) and deep vein thrombosis (DVT) on chronic Lovenox, follows with Dr. Adkins and Dr. Leslie Anderson, hypertension, hypothyroidism, dementia, urinary tract infection (UTI), hysterectomy, bilateral cataract surgery, who has had recurrent hematomas while on Lovenox, first episode was on 12/08/2016, with incision and drainage with wound left open of right lower extremity. She then was admitted this time with recurrent hematoma and necrotic tissue at the open wound site. She underwent surgical debridement and evacuation of hematoma by general surgeon, Dr. Bedolla, and has been on intravenous vancomycin since admission due to recurrent hematoma on Lovenox with history of bilateral pulmonary embolisms (PEs) and deep venous thromboses (DVTs). Patient underwent inferior vena cava (IVC) filter placement and resumption of Lovenox once hemoglobin and hematocrit was deemed to be stable. Patient did receive two units of red blood cell transfusion due to presenting hemoglobin of 7.7 and peak hemoglobin of 10. We have since resumed patient's Lovenox. During this admission she developed a fever of 101 despite being on intravenous vancomycin with no other source of infection, has remained afebrile since yesterday. CURRENT ISSUES: 1. Fever. Negative workup for now. Still on intravenous (IV) vancomycin for necrotic tissue that was debrided on the lower extremity status post hematoma evacuation. Unknown etiology. Continue to monitor for any acute infection. 2. History of bilateral pulmonary embolism (PE) and deep venous thrombosis (DVT) status post inferior vena cava (IVC) filter placement with ongoing edema of the right lower extremity. Patient did receive two units of red blood cell transfusion and restarted back on Lovenox after patient's inferior vena cava (IVC) filter was placed. Continue to monitor for worsening bleeding. 3. Acute blood loss anemia secondary to hematoma from Lovenox being used for bilateral pulmonary embolism (PE). Patient did receive two units of red blood cell transfusion. Continue to monitor hemoglobin and hematocrit every 6 hours. 4. Bilateral pulmonary embolism (PE) and deep venous thrombosis (DVT). Patient has received inferior vena cava (IVC) filter placement due to recurrent hematoma. She has been restarted back on Lovenox. 5. History of multiple myeloma and chronic kidney disease. Currently at baseline creatinine. 6. Atrial fibrillation. Currently sinus rhythm on amiodarone and sinus tachycardia due to fever.
[2017-01-06 22:00] VITALS: BP 102/55
[2017-01-07 06:00] VITALS: BP 102/66
[2017-01-07 06:56] LABS: CALCIUM LEVEL 7.8 MG/DL (8.8-10.2); CREATININE FOR GFR 1.22 MG/DL (0.55-1.02); GLOMERULAR FILTRATION RATE 45.1 (>32)
[2017-01-07 08:35] LABS: MEAN CORPUSCULAR HEMOGLOBIN 28.6 pg (27.0-33.0); MEAN CORPUSCULAR HGB CONC 30.6 g/dl (32.0-36.5); MEAN CORPUSCULAR VOLUME 93.6 fl (80.0-96.0); RED CELL DISTRIBUTION WIDTH 15.2 % (11.5-14.5); WHITE BLOOD COUNT 3.8 K/mm3 (4.0-10.0)
[2017-01-07] MEDS: AMIODARONE 200 MG TAB (PACERONE) PO SCH (08:40)
[2017-01-07] MEDS: MIDODRINE 5 MG TAB PO SCH ×3 (08:40→16:38)
[2017-01-07] MEDS: LACTOBACILLUS ACIDOPHILUS CAP (BACID) PO SCH ×2 (08:40→17:38)
[2017-01-07] MEDS: OMEPRAZOLE 20 MG CAP PO SCH ×2 (08:40→20:26)
[2017-01-07] MEDS: POTASSIUM CHLORIDE 10 MEQ SR TABLET PO SCH ×2 (08:41→20:27)
[2017-01-07] MEDS: ENOXAPARIN 80 MG/0.8 ML SYRINGE (J1650) SC SCH ×2 (08:41→20:27)
--- NOTE | 2017-01-07 11:23 | IPN ---
DATE: 01/07/2017 Patient seen and examined at the bedside. Chart has been reviewed. Since 01/05/2017 with a fever of 101, patient has remained afebrile. She has no new complaints. Her atrial fibrillation has been slightly uncontrolled with ventricular rate of 97-112. She currently denies any lightheadedness, dizziness , chest pain, pressure, tightness, shortness of breath, lightheadedness or near syncope. Patient is not ambulating well due to right lower extremity incision and drainage with open wound debrided with hematoma evacuation last week. Temperature 99.3, pulse 111, respiratory 20, blood pressure 102/66, 90% 2 liters nasal cannula. Generally, patient is awake, alert, oriented to person only. Answers questions appropriately. No respiratory distress. No jugular venous distention. Lungs: Clear to auscultation. No wheezing, rales or rhonchi. Heart: S1, S2. Irregularly irregular. Abdomen: Soft, nontender, nondistended. Extremities: Positive edema right lower extremity, bandaged. Skin: Warm, dry, pink in color. White count 3.8, hemoglobin 9, hematocrit 29, platelet count 212. Sodium 143, potassium 4, chloride 109, bicarbonate 25, BUN 14, creatinine 1.22. Glucose of 73. Microbiology: Urine blood cultures are negative. Imaging study: Chest x-ray 01/05: Bilateral pleural effusions, bibasilar atelectasis increased. No zulma edema. ASSESSMENT AND PLAN: This is an 81-year-old female, DO NOT RESUSCITATE/DO NOT INTUBATE, history of multiple myeloma, chronic anemia, atrial fibrillation, bilateral pulmonary embolism (PE) and deep vein thrombosis (DVT) on chronic Lovenox, follows with Dr. Adkins and Dr. Leslie Anderson, hypertension, hypothyroidism, urinary tract infection (UTI), hysterectomy, bilateral cataract surgery, who has had recurrent hematomas while on Lovenox, first episode on 12/08/2016, with incision and drainage and wound left open on the right lower extremity. Patient was admitted this time with recurrent hematoma and necrotic tissue at the open wound site. She underwent surgical debridement and evacuation of hematoma by general surgeon, Dr. Bedolla, and has been on intravenous vancomycin since admission due to recurrent hematoma on Lovenox with history of bilateral pulmonary embolisms (PEs) and deep venous thromboses (DVTs). Patient underwent inferior vena cava (IVC) filter placement and resumption of Lovenox once hemoglobin and hematocrit was deemed to be stable. She did receive two units of red blood cell transfusion due to presenting hemoglobin of 7.7 with a peak hemoglobin of 10. Since resuming patient's Lovenox, patient has had slight decrease in hemoglobin and hematocrit but appears to be stable. She has developed increasing lower extremity edema, acute kidney injury given IV fluid hydration. She has developed a fever on 01/05/2017 with negative workup and still on intravenous vancomycin for presumed infection of the right lower extremity. IMPRESSION: 1. Fever, resolved. Patient has negative workup. Still on intravenous (IV) vancomycin for necrotic tissue debrided on the right lower extremity status post hematoma evacuation. At this time, patient is currently being monitored. Cultures appear to be negative so far and chest x-ray shows small effusions versus atelectasis. 2. History of bilateral pulmonary embolism (PE) and deep venous thrombosis (DVT ) status post inferior vena cava (IVC) filter placement with ongoing edema of the right lower extremity. Patient did receive two units of red blood cell transfusion and restarted back on Lovenox after inferior vena cava (IVC) filter was placed. Continue to monitor for any signs of active bleeding. 3. Acute blood loss anemia secondary to hematoma from Lovenox being used for bilateral pulmonary embolism (PE). Patient received two units of red blood cell transfusion. Hemoglobin and hematocrit remain stable. 4. Bilateral pulmonary embolism (PE) and deep venous thrombosis (DVT). Patient has received inferior vena cava (IVC) filter placement due to recurrent hematoma. She has been restarted back on Lovenox. 5. History of multiple myeloma, chronic anemia with current blood loss and chronic kidney disease. Monitor for worsening renal failure. Renally dose all medications. Avoid nephrotoxins. 6. Atrial fibrillation. On amiodarone. Sinus tachycardia due to fever. Will continue to monitor her rate control. MTDD
[2017-01-07] MEDS: FAMOTIDINE 20 MG TAB PO SCH (11:43)
[2017-01-07 14:00] VITALS: BP 118/72
[2017-01-07] MEDS ORDERED: VANCOMYCIN HCL 750 MG, VIAL MATE ADAPTER 1 EACH in D5W 250 ML IV SCH (16:00)
[2017-01-07] MEDS: ACETAMINOPHEN TAB 650MG DOSE (2X325MG) PO PRN (16:38)
[2017-01-07] MEDS ORDERED: HALOPERIDOL 0.5 MG TAB PO ONE (20:15)
[2017-01-07 22:00] VITALS: BP 125/86
[2017-01-08 06:00] VITALS: BP 126/81
[2017-01-08 07:45] LABS: CALCIUM LEVEL 7.8 MG/DL (8.8-10.2); CREATININE FOR GFR 1.34 MG/DL (0.55-1.02); GLOMERULAR FILTRATION RATE 40.5 (>32); POTASSIUM SERUM 3.9 MEQ/L (3.5-5.1)
[2017-01-08] MEDS ORDERED: NS 500 ML IV SCH (08:00)
[2017-01-08 09:00] VITALS: BP 123/74
[2017-01-08] MEDS: MIDODRINE 5 MG TAB PO SCH ×3 (09:53→15:47)
[2017-01-08] MEDS: LACTOBACILLUS ACIDOPHILUS CAP (BACID) PO SCH ×2 (09:53→17:47)
[2017-01-08] MEDS: POTASSIUM CHLORIDE 10 MEQ SR TABLET PO SCH ×2 (09:54→22:13)
[2017-01-08] MEDS: OMEPRAZOLE 20 MG CAP PO SCH ×2 (09:54→22:13)
[2017-01-08] MEDS: AMIODARONE 200 MG TAB (PACERONE) PO SCH (09:54)
[2017-01-08] MEDS: ENOXAPARIN 80 MG/0.8 ML SYRINGE (J1650) SC SCH ×2 (09:55→22:13)
[2017-01-08] MEDS: FAMOTIDINE 20 MG TAB PO SCH (12:55)
[2017-01-08 14:00] VITALS: BP 127/82
--- NOTE | 2017-01-08 14:50 | IPNPDOC ---
Text Note Date of Service The patient was seen on 01/08/17. NOTE Subjective: Patient is an 81 year old female with a PMHx of MM, Dementia, Hx of PE (on Lovenox), Hematoma in RLE 12/08 - s/p I&D in ED and left open. Patient presented back to ER with persistent hematoma and open wound on leg. Patient was seen and examined at the bedside. She has no new complaints today. Objective: Vitals (See below) General: Lying in bed no acute distress, Comfortable, AAOx3, HEENT: NC, AT, CVS: Irregularly irregular, +S1S2 Lungs: Fair air entry b/l, -w/r/r Abdomen: Soft, ND, NT, +BSx4 Extremities; RLE with dressing in place, trace edema b/l, -calf tenderness Assessment and plan: 1. s/p Fever - possibly 2/2 atelectasis - Review of systems has been negative - no leukocytosis - Cultures (Blood and Urine) negative and urinalysis negative - Currently still on Vancomycin - Will DC vancomycin today 2. Acute blood loss anemia - likely 2/2 hematoma 2/2 Lovenox - s/p 2 units PRBC - Hematoma has been evacuated by surgery; cleared from a surgical standpoint - Hg stable at this time 3. Hx of bilateral PE / DVT - s/p IVC filter placement - restarted Lovenox - will continue to monitor for bleeding 4. Acute kidney injury - likely 2/2 pre-renal etiology 2/2 acute blood loss - will give gentle IV fluid hydration 5. Hx of MM - will avoid nephrotoxins 6. A. fib - c/w amiodarone - c/w lovenox for anticoagulation 7. DVT prophylaxis - already on full anticoagulation with lovenox VS,Fishbone, I+O VS, Fishbone, I+O Laboratory Tests 01/07/17 18:27 01/08/17 06:59 Calcium Level 7.8 L Vital Signs Date Time Temp Pulse Resp B/P Pulse Ox O2 Delivery O2 Flow Rate FiO2 01/08/17 09:00 98.7 102 20 123/74 94 Room Air 01/07/17 06:00 2.0 I&O- Last 24 Hours up to 6 AM 01/08/17 06:00 Intake Total 1590 ml Output Total 1325 ml Balance 265 ml NELLY THOMAS MD Jan 08, 2017 14:49
[2017-01-08 22:00] VITALS: BP 105/57
[2017-01-09 06:00] VITALS: BP 115/70
[2017-01-09 07:00] LABS: BASO % 0.5 % (0.0-1.0); EOS % 0.7 % (0.0-3.0); LARGE UNSTAINED CELL # 0.1 K/mm3 (0.0-0.4); LARGE UNSTAINED CELL % 1.1 % (0.0-4.0); LYMPH # 0.7 K/mm3 (1.5-4.5); LYMPH % 16.8 % (24.0-44.0); MEAN CORPUSCULAR HEMOGLOBIN 28.3 pg (27.0-33.0); MEAN CORPUSCULAR HGB CONC 30.4 g/dl (32.0-36.5); MEAN CORPUSCULAR VOLUME 93.1 fl (80.0-96.0); MONO # 0.2 K/mm3 (0.0-0.8); MONO % 5.7 % (0.0-5.0); NEUTROPHILS # 3.1 K/mm3 (1.8-7.7); NEUTROPHILS % 75.1 % (36.0-66.0); PLATELET COUNT, AUTOMATED 229 k/mm3 (150-450); WHITE BLOOD COUNT 4.1 K/mm3 (4.0-10.0)
[2017-01-09 07:04] LABS: ALBUMIN 1.9 GM/DL (3.2-5.2); ALBUMIN/GLOBULIN RATIO 0.66 (1.00-1.93); BILIRUBIN,TOTAL 0.3 MG/DL (0.2-1.0); CALCIUM LEVEL 7.8 MG/DL (8.8-10.2); CREATININE FOR GFR 1.14 MG/DL (0.55-1.02); GLOMERULAR FILTRATION RATE 48.8 (>32); MAGNESIUM LEVEL 1.7 MG/DL (1.8-2.4); POTASSIUM SERUM 3.9 MEQ/L (3.5-5.1); TOTAL PROTEIN 4.8 GM/DL (6.4-8.2)
[2017-01-09] MEDS ORDERED: MAG SULF 1GM/100ML (MAG RUN) 1 GM in APPROPRIATE DILUENT 1 EA IV ONE (07:30)
[2017-01-09] MEDS: LACTOBACILLUS ACIDOPHILUS CAP (BACID) PO SCH ×2 (10:43→17:12)
[2017-01-09] MEDS: MIDODRINE 5 MG TAB PO SCH ×3 (10:44→17:12)
[2017-01-09] MEDS: POTASSIUM CHLORIDE 10 MEQ SR TABLET PO SCH ×2 (10:44→21:52)
[2017-01-09] MEDS: FAMOTIDINE 20 MG TAB PO SCH (10:44)
[2017-01-09] MEDS: AMIODARONE 200 MG TAB (PACERONE) PO SCH (10:44)
[2017-01-09] MEDS: OMEPRAZOLE 20 MG CAP PO SCH ×2 (10:44→21:52)
[2017-01-09] MEDS: ENOXAPARIN 80 MG/0.8 ML SYRINGE (J1650) SC SCH ×2 (10:45→21:52)
[2017-01-09 14:00] VITALS: BP 126/74
--- NOTE | 2017-01-09 14:03 | IPNPDOC ---
Text Note Date of Service The patient was seen on 01/09/17. NOTE Subjective: Patient is an 81 year old female with a PMHx of MM, Dementia, Hx of PE (on Lovenox), Hematoma in RLE 12/08 - s/p I&D in ED and left open. Patient presented back to ER with persistent hematoma and open wound on leg. Patient was seen and examined at the bedside. She reports that she is not having any problems this morning. Objective: Vitals (See below) General: Lying in bed no acute distress, Comfortable, AAOx3, HEENT: NC, AT, CVS: Irregularly irregular, +S1S2 Lungs: Fair air entry b/l, -w/r/r Abdomen: Soft, ND, NT, +BSx4 Extremities; RLE with dressing in place, trace edema b/l, -calf tenderness Assessment and plan: 1. s/p Fever - possibly 2/2 atelectasis - Review of systems has been negative - no leukocytosis - Cultures (Blood and Urine) negative and urinalysis negative - s/p vancomycin 2. Acute blood loss anemia - likely 2/2 hematoma 2/2 Lovenox - s/p 2 units PRBC - Hematoma has been evacuated by surgery; cleared from a surgical standpoint - Hg stable at this time - Awaiting physical therapy clearance 3. Hx of bilateral PE / DVT - s/p IVC filter placement - c/w Lovenox - will continue to monitor for bleeding 4. Acute kidney injury - likely 2/2 pre-renal etiology 2/2 acute blood loss - Cr has been improvign - will c/w gentle IV fluid hydration 5. Hx of MM - will avoid nephrotoxins 6. A. fib - c/w amiodarone - c/w lovenox for anticoagulation 7. DVT prophylaxis - already on full anticoagulation with lovenox Disposition: - Awaiting physical therapy clearance home or rehab placement VS,Fishbone, I+O VS, Fishbone, I+O Laboratory Tests 01/08/17 18:06 01/09/17 06:29 Calcium Level 7.8 L, Aspartate Amino Transf (AST/SGOT) 11 L, Alanine Aminotransferase (ALT/SGPT) 7 L, Alkaline Phosphatase 108, Total Bilirubin 0.3, Total Protein 4.8 L, Albumin 1.9 L, Red Blood Count 3.29 L, Mean Corpuscular Volume 93.1, Mean Corpuscular Hemoglobin 28.3, Mean Corpuscular Hemoglobin Concent 30.4 L, Red Cell Distribution Width 15.0 H, Neutrophils (%) (Auto) 75.1 H, Lymphocytes (%) (Auto) 16.8 L, Monocytes (%) (Auto) 5.7 H, Eosinophils (%) ( Auto) 0.7, Basophils (%) (Auto) 0.5, Neutrophils # (Auto) 3.1, Lymphocytes # ( Auto) 0.7 L, Monocytes # (Auto) 0.2, Eosinophils # (Auto) 0.0, Basophils # (Auto ) 0.0 Vital Signs Date Time Temp Pulse Resp B/P Pulse Ox O2 Delivery O2 Flow Rate FiO2 01/09/17 06:00 97.6 98 14 115/70 91 Room Air 01/07/17 06:00 2.0 I&O- Last 24 Hours up to 6 AM 01/09/17 06:00 Intake Total 1280 ml Output Total 400 ml Balance 880 ml NELLY THOMAS MD Jan 09, 2017 14:03
[2017-01-09] MEDS ORDERED: NS 500 ML IV SCH (14:15)
[2017-01-09] MEDS ORDERED: LOVE0.6I2 SC (16:41)
[2017-01-09] MEDS: ACETAMINOPHEN TAB 650MG DOSE (2X325MG) PO PRN (21:53)
[2017-01-09 22:00] VITALS: BP 122/76
[2017-01-10] MEDS: ACETAMINOPHEN TAB 650MG DOSE (2X325MG) PO PRN (01:03)
[2017-01-10 06:00] VITALS: BP 101/63
[2017-01-10 08:09] LABS: BASO % 0.2 % (0.0-1.0); EOS % 0.6 % (0.0-3.0); LARGE UNSTAINED CELL # 0.1 K/mm3 (0.0-0.4); LARGE UNSTAINED CELL % 1.1 % (0.0-4.0); LYMPH # 0.7 K/mm3 (1.5-4.5); LYMPH % 15.9 % (24.0-44.0); MEAN CORPUSCULAR HEMOGLOBIN 28.7 pg (27.0-33.0); MEAN CORPUSCULAR HGB CONC 30.5 g/dl (32.0-36.5); MEAN CORPUSCULAR VOLUME 94.1 fl (80.0-96.0); MONO # 0.3 K/mm3 (0.0-0.8); MONO % 6.6 % (0.0-5.0); NEUTROPHILS # 3.3 K/mm3 (1.8-7.7); NEUTROPHILS % 75.5 % (36.0-66.0); PLATELET COUNT, AUTOMATED 285 k/mm3 (150-450); WHITE BLOOD COUNT 4.3 K/mm3 (4.0-10.0)
[2017-01-10 08:27] VITALS: BP 124/73
[2017-01-10] MEDS: ENOXAPARIN 80 MG/0.8 ML SYRINGE (J1650) SC SCH (08:42)
[2017-01-10] MEDS: OMEPRAZOLE 20 MG CAP PO SCH (08:43)
[2017-01-10] MEDS: POTASSIUM CHLORIDE 10 MEQ SR TABLET PO SCH (08:43)
[2017-01-10] MEDS: AMIODARONE 200 MG TAB (PACERONE) PO SCH (08:43)
[2017-01-10 08:49] LABS: ALBUMIN/GLOBULIN RATIO 0.65 (1.00-1.93); BILIRUBIN,TOTAL 0.3 MG/DL (0.2-1.0); CALCIUM LEVEL 7.8 MG/DL (8.8-10.2); CREATININE FOR GFR 1.13 MG/DL (0.55-1.02); GLOMERULAR FILTRATION RATE 49.3 (>32); POTASSIUM SERUM 4.1 MEQ/L (3.5-5.1); TOTAL PROTEIN 5.1 GM/DL (6.4-8.2)
[2017-01-10] MEDS: LACTOBACILLUS ACIDOPHILUS CAP (BACID) PO SCH (10:23)
[2017-01-10] MEDS: MIDODRINE 5 MG TAB PO SCH (10:23)
--- NOTE | 2017-01-10 21:43 | DSES ---
DATE OF ADMISSION: 01/01/2017 DATE OF DISCHARGE: 01/10/2017 PRIMARY CARE PHYSICIAN: Dr. Behzad uQiles REFERRING PHYSICIAN: None. CONSULTING PHYSICIAN: Dr. Bedolla CONDITION AT DISCHARGE: Stable. FINAL DIAGNOSIS: Acute blood loss anemia. PROCEDURES: Incision and debridement of right lower extremity hematoma with debridement of skin and subcutaneous tissue, which was completed on 01/01/2017. HISTORY OF PRESENT ILLNESS: Patient is an 81-year-old female with a past medical history of multiple myeloma, dementia, history of pulmonary embolism, on Lovenox, hematoma in the right lower extremity on December 08, status post incision and drainage in the emergency room and left open. Patient presented back to the emergency room with persistent hematoma and open wound on her leg. HOSPITAL COURSE: 1. Status post fever, possible secondary to atelectasis. Review of system has been negative. No leukocytosis. Cultures of blood and urine and have been negative. A urinalysis has been negative. She was initially put on vancomycin but has been discontinued. 2. Acute blood loss anemia, likely secondary to hematoma, secondary to Lovenox. She is status post 2 units of packed red blood cells (PRBC). Hematoma has been evacuated by surgery. Cleared from a surgical standpoint. Hemoglobin as been stable since that point. Physical therapy has advised her to continue with rehabilitation. She will be taken to inpatient rehabilitation for continued therapy. 3. History of bilateral pulmonary embolism (PE) and deep vein thrombosis (DVT), status post inferior vena cava (IVC) filter placement. Continue with Lovenox. She had no further signs of bleeding. 4. Acute kidney injury, likely secondary to prerenal etiology secondary to acute blood loss anemia. Creatinine has been improving. Will continue with gentle intravenous (IV) fluid hydration while she is inpatient. 5. History of multiple myeloma. Will avoid nephrotoxins. 6. Atrial fibrillation. Continue with amiodarone, and she is on Lovenox for anticoagulation. 7. DVT prophylaxis. She is already on full anticoagulation with Lovenox. DISCHARGE MEDICATIONS: Patient was discharged home on the following medication list. - amiodarone 200 mg by mouth daily - aspirin 81 mg by mouth daily - calcium carbonate 600 mg by mouth twice a day - vitamin D 1000 units by mouth daily - vitamin B12 at 1000 mcg by mouth daily - dexamethasone 20 mg by mouth weekly during her chemotherapy . - donepezil 10 mg by mouth twice a day - gabapentin 100 mg by mouth three times a day - loratadine 10 mg by mouth daily as needed allergies - ranitidine 10 mg by mouth twice a day - midodrine 10 mg by mouth three times a day - omeprazole 20 mg by mouth twice a day - potassium chloride 10 mEq by mouth twice a day - prochlorperazine 10 mg by mouth as needed nausea and vomiting - silver sulfadiazine one dose topically twice a day Stopped medication includes cephalexin. Medications which were changed include Lovenox to 70 mg subcutaneous every 12 hours. DISCHARGE INSTRUCTIONS: Patient was advised to followup with her primary care provider and surgery within the next 7 days. She has been advised to be compliant with treatment plan and medications and return to the emergency room if she experiences any problems. TIME SPENT ON DISCHARGE: 35 minutes. MADHU
== END 2017-01-10 10:35 | DRG 464 ==
LOC: M ED 12:01 → M ED INP 14:56 → M PCU 20:45 → M MS5PR 01-04 15:17
PROVIDERS: ADMIT Internal Medicine; ATTEND General Practice
PROC: 30253N1 (ICD-10-PCS; 2017-01-01)
PROC: 0JBN0ZZ Excision of Right Lower Leg Subcutaneous Tissue and Fascia, Open Approach (ICD-10-PCS; principal; 2017-01-01 16:28)
PROC: 06L03DZ Occlusion of Inferior Vena Cava with Intraluminal Device, Percutaneous Approach (ICD-10-PCS; 2017-01-03)
DX: M79.81 Nontraumatic hematoma of soft tissue (principal); N18.4 Chronic kidney disease, stage 4 (severe); C90.00 Multiple myeloma not having achieved remission; E87.0 Hyperosmolality and hypernatremia; D62 Acute posthemorrhagic anemia; D68.32 Hemorrhagic disorder due to extrinsic circulating anticoagulants; N17.9 Acute kidney failure, unspecified; J98.11 Atelectasis; F02.80 Dementia in other diseases classified elsewhere, unspecified severity, without behavioral disturbance, psychotic disturbance, mood disturbance, and anxiety; Z66 Do not resuscitate; I48.91 Unspecified atrial fibrillation; I12.9 Hypertensive chronic kidney disease with stage 1 through stage 4 chronic kidney disease, or unspecified chronic kidney disease; E03.9 Hypothyroidism, unspecified; R26.9 Unspecified abnormalities of gait and mobility; K21.9 Gastro-esophageal reflux disease without esophagitis; D63.0 Anemia in neoplastic disease; G30.9 Alzheimer's disease, unspecified; E83.51 Hypocalcemia; E86.0 Dehydration; Z86.718 Personal history of other venous thrombosis and embolism; Z79.82 Long term (current) use of aspirin; Z86.711 Personal history of pulmonary embolism

== ENCOUNTER → 2017-01-14 | Outpatient (REF) ==
[~2017-01-14] MED LIST changes: +AMIO20TA PO; +CALC600T3 PO; +CEPH500C PO; +GABA-279 PO; +LORA10TA2 PO; +LOVE0.6I2 SC; +SILV50CR TOP
[2017-01-14 14:33] LABS: MEAN CORPUSCULAR HEMOGLOBIN 28.8 pg (27.0-33.0); MEAN CORPUSCULAR HGB CONC 29.8 g/dl (32.0-36.5); MEAN CORPUSCULAR VOLUME 96.8 fl (80.0-96.0); RED CELL DISTRIBUTION WIDTH 14.5 % (11.5-14.5); WHITE BLOOD COUNT 7.4 K/mm3 (4.0-10.0)
[2017-01-14 14:47] LABS: CALCIUM LEVEL 8.6 MG/DL (8.8-10.2); CREATININE FOR GFR 1.32 MG/DL (0.55-1.02); GLOMERULAR FILTRATION RATE 41.1 (>32); POTASSIUM SERUM 4.2 MEQ/L (3.5-5.1)
== END ==
PROVIDERS: ATTEND Internal Medicine
DX: I10 Essential (primary) hypertension (principal)

== ENCOUNTER → 2017-01-15 | Outpatient (REF) | PROVIDERS: ATTEND Internal Medicine | DX: S81.801A Unspecified open wound, right lower leg, initial encounter (principal); X58.XXXA Exposure to other specified factors, initial encounter; Y93.9 Activity, unspecified; Y92.9 Unspecified place or not applicable; Y99.8 Other external cause status ==

== ENCOUNTER → 2017-01-17 | Outpatient (REF) ==
[2017-01-17 14:22] LABS: MEAN CORPUSCULAR HEMOGLOBIN 27.9 pg (27.0-33.0); MEAN CORPUSCULAR HGB CONC 29.8 g/dl (32.0-36.5); MEAN CORPUSCULAR VOLUME 93.9 fl (80.0-96.0); RED CELL DISTRIBUTION WIDTH 14.6 % (11.5-14.5); WHITE BLOOD COUNT 5.1 K/mm3 (4.0-10.0)
== END ==
PROVIDERS: ATTEND Internal Medicine
DX: D64.9 Anemia, unspecified (principal); I10 Essential (primary) hypertension

== ENCOUNTER → 2017-01-18 | Outpatient (REF) | payer MEDICAID, MEDICARE ==
[2017-01-18 11:49] LABS: CALCIUM LEVEL 8.8 MG/DL (8.8-10.2); CREATININE FOR GFR 1.49 MG/DL (0.55-1.02); GLOMERULAR FILTRATION RATE 35.8 (>32); POTASSIUM SERUM 4.5 MEQ/L (3.5-5.1)
== END ==
PROVIDERS: ATTEND Internal Medicine
DX: I10 Essential (primary) hypertension (principal)

== ENCOUNTER → 2017-01-21 | Outpatient (REF) ==
[2017-01-21 13:03] LABS: MEAN CORPUSCULAR HEMOGLOBIN 27.7 pg (27.0-33.0); MEAN CORPUSCULAR HGB CONC 29.9 g/dl (32.0-36.5); MEAN CORPUSCULAR VOLUME 92.4 fl (80.0-96.0); RED CELL DISTRIBUTION WIDTH 14.9 % (11.5-14.5)
[2017-01-21 13:12] LABS: CALCIUM LEVEL 8.5 MG/DL (8.8-10.2); CREATININE FOR GFR 1.52 MG/DL (0.55-1.02); GLOMERULAR FILTRATION RATE 34.9 (>32); POTASSIUM SERUM 4.7 MEQ/L (3.5-5.1)
== END ==
PROVIDERS: ATTEND Internal Medicine
DX: I10 Essential (primary) hypertension (principal)

== ENCOUNTER → 2017-01-24 | Outpatient (REF) ==
[2017-01-24 10:13] LABS: MEAN CORPUSCULAR HEMOGLOBIN 27.8 pg (27.0-33.0); MEAN CORPUSCULAR HGB CONC 29.8 g/dl (32.0-36.5); MEAN CORPUSCULAR VOLUME 93.2 fl (80.0-96.0); RED CELL DISTRIBUTION WIDTH 14.8 % (11.5-14.5); WHITE BLOOD COUNT 7.5 K/mm3 (4.0-10.0)
== END ==
PROVIDERS: ATTEND Internal Medicine
DX: D64.9 Anemia, unspecified (principal)

== ENCOUNTER → 2017-01-28 | Outpatient (REF) ==
[2017-01-28 10:32] LABS: MEAN CORPUSCULAR HEMOGLOBIN 27.9 pg (27.0-33.0); MEAN CORPUSCULAR HGB CONC 29.8 g/dl (32.0-36.5); MEAN CORPUSCULAR VOLUME 93.6 fl (80.0-96.0); RED CELL DISTRIBUTION WIDTH 15.2 % (11.5-14.5)
[2017-01-28 10:48] LABS: CALCIUM LEVEL 7.8 MG/DL (8.8-10.2); CREATININE FOR GFR 1.37 MG/DL (0.55-1.02); GLOMERULAR FILTRATION RATE 39.4 (>32); POTASSIUM SERUM 5.1 MEQ/L (3.5-5.1)
[2017-01-28 11:15] LABS: PERCENT SATURATION 6.2 % (13.2-37.4)
== END ==
PROVIDERS: ATTEND Internal Medicine
DX: E61.1 Iron deficiency (principal)

== ENCOUNTER → 2017-01-29 | Outpatient (REF) ==
[2017-01-29 11:19] LABS: MEAN CORPUSCULAR HGB CONC 29.5 g/dl (32.0-36.5); MEAN CORPUSCULAR VOLUME 94.9 fl (80.0-96.0); RED CELL DISTRIBUTION WIDTH 15.2 % (11.5-14.5); WHITE BLOOD COUNT 5.8 K/mm3 (4.0-10.0)
== END ==
PROVIDERS: ATTEND Internal Medicine
DX: E61.1 Iron deficiency (principal)

== ENCOUNTER → 2017-01-31 | Outpatient (REF) ==
[2017-01-31 11:28] LABS: MEAN CORPUSCULAR HEMOGLOBIN 27.4 pg (27.0-33.0); MEAN CORPUSCULAR HGB CONC 29.4 g/dl (32.0-36.5); MEAN CORPUSCULAR VOLUME 93.3 fl (80.0-96.0); RED CELL DISTRIBUTION WIDTH 15.6 % (11.5-14.5); WHITE BLOOD COUNT 6.6 K/mm3 (4.0-10.0)
== END ==
PROVIDERS: ATTEND Internal Medicine
DX: E61.1 Iron deficiency (principal)

== ENCOUNTER → 2017-02-12 | Outpatient (REF) ==
[2017-02-12 10:36] LABS: CREATININE FOR GFR 1.22 MG/DL (0.55-1.02); POTASSIUM SERUM 4.6 MEQ/L (3.5-5.1)
== END ==
PROVIDERS: ATTEND Internal Medicine
DX: I10 Essential (primary) hypertension (principal)

== ENCOUNTER → 2017-02-26 | Outpatient (REF) | PROVIDERS: ATTEND Internal Medicine | DX: E03.9 Hypothyroidism, unspecified (principal) ==

== ENCOUNTER → 2017-03-13 | Outpatient (REF) | payer MEDICARE, MEDICAID ==
[2017-03-13 10:58] LABS: CALCIUM LEVEL 7.9 MG/DL (8.8-10.2); CREATININE FOR GFR 1.35 MG/DL (0.55-1.02); GLOMERULAR FILTRATION RATE 40.1 (>32); POTASSIUM SERUM 4.7 MEQ/L (3.5-5.1)
== END ==
PROVIDERS: ATTEND Internal Medicine
DX: I10 Essential (primary) hypertension (principal)

== ENCOUNTER → 2017-03-20 | Outpatient (REF) ==
[2017-03-20 11:17] LABS: BASO % 0.7 % (0.0-1.0); EOS # 0.1 K/mm3 (0.0-0.50); EOS % 1.6 % (0.0-3.0); LARGE UNSTAINED CELL % 0.5 % (0.0-4.0); LYMPH # 1.1 K/mm3 (1.5-4.5); LYMPH % 14.6 % (24.0-44.0); MEAN CORPUSCULAR HEMOGLOBIN 26.9 pg (27.0-33.0); MEAN CORPUSCULAR HGB CONC 28.7 g/dl (32.0-36.5); MEAN CORPUSCULAR VOLUME 93.7 fl (80.0-96.0); MONO # 0.3 K/mm3 (0.0-0.8); MONO % 4.8 % (0.0-5.0); NEUTROPHILS # 5.6 K/mm3 (1.8-7.7); NEUTROPHILS % 77.8 % (36.0-66.0); PLATELET COUNT, AUTOMATED 347 k/mm3 (150-450); RED CELL DISTRIBUTION WIDTH 16.3 % (11.5-14.5); WHITE BLOOD COUNT 7.2 K/mm3 (4.0-10.0)
[2017-03-20 11:19] LABS: CALCIUM LEVEL 8.3 MG/DL (8.8-10.2); CREATININE FOR GFR 1.26 MG/DL (0.55-1.02); GLOMERULAR FILTRATION RATE 43.4 (>32); MAGNESIUM LEVEL 2.1 MG/DL (1.8-2.4); POTASSIUM SERUM 4.2 MEQ/L (3.5-5.1)
[2017-03-20 11:23] LABS: ADD MORPHOLOGY? YES
[2017-03-20 13:53] LABS: ANISOCYTOSIS 1+; HYPOCHROMASIA 1+; MICROCYTOSIS 1+; POIKILOCYTOSIS 1+
== END ==
PROVIDERS: ATTEND Internal Medicine
DX: I10 Essential (primary) hypertension (principal)

== ENCOUNTER → 2017-04-09 | Outpatient (REF) | payer MEDICARE, MEDICAID ==
[2017-04-09 11:27] LABS: CALCIUM LEVEL 7.6 MG/DL (8.8-10.2); CREATININE FOR GFR 1.44 MG/DL (0.55-1.02); GLOMERULAR FILTRATION RATE 37.2 (>32); POTASSIUM SERUM 4.8 MEQ/L (3.5-5.1)
== END ==
PROVIDERS: ATTEND Internal Medicine
DX: I10 Essential (primary) hypertension (principal)